=== PATIENT | female | born 1995 | race Caucasian/White ===

== ENCOUNTER 2017-09-24 16:09 | Emergency (ER) | payer BC ==
--- NOTE | 2017-09-24 16:45 | EDM.PDOC ---
ED HPI GENERAL MEDICAL PROBLEM - General Chief Complaint: Skin Complaint Stated Complaint: IRRITATION ON HANDS FROM CHEMICALS Time Seen by Provider: 09/24/17 16:33 Source of Information: Reports: Patient, RN Notes Reviewed - History of Present Illness INITIAL COMMENTS - FREE TEXT/NARRATIVE: 21-year-old female comes in with bilateral hand dermatitis. She states she has moved into a new place and was doing some cleaning with various types of cleaning chemicals not wearing gloves last evening. The dorsal aspect of both hands were somewhat red and sore. That has worsened throughout the day and now she has itchiness as well no other unusual activity or explanation for current symptoms. No Other areas of skin inflammation or irritation. Bilateral Hand Pain Score (Numeric/FACES): 8 - Related Data Allergies Allergy/AdvReac Type Severity Reaction Status Date / Time codeine Allergy Swelling Verified 09/24/17 16:28 Penicillins Allergy Swelling Verified 09/24/17 16:28 Home Meds: Home Meds Omeprazole 40 mg PO DAILY 09/24/17 [History] Triamcinolone Acetonide [Triamcinolone Acetonide 0.1% Crm] 15 gm TOP BID #1 tube 09/24/17 [Rx] Past Medical History - Past Health History Medical/Surgical History: Denies Medical/Surgical History Social & Family History - Tobacco Use Smoking Status *Q: Never Smoker - Caffeine Use Caffeine Use: Reports: Coffee - Recreational Drug Use Recreational Drug Use: No ED ROS GENERAL - Review of Systems Review Of Systems: See Below Constitutional: Reports: No Symptoms HEENT: Reports: No Symptoms Respiratory: Denies: Shortness of Breath Cardiovascular: Denies: Chest Pain GI/Abdominal: Denies: Abdominal Pain, Nausea, Vomiting Musculoskeletal: Reports: No Symptoms Skin: Reports: Erythema, Other (Dorsal aspect both hands otherwise clear) Neurological: Denies: Numbness, Tingling ED EXAM, SKIN/RASH Exam: See Below General Appearance: Alert, No Apparent Distress Eye Exam: Bilateral Eye: PERRL Head: Atraumatic. No: Facial Swelling Neck: Supple Respiratory/Chest: No Respiratory Distress Extremities: Normal Inspection, Normal Range of Motion Neurological: Alert, Oriented, No Motor/Sensory Deficits Skin: Warm, Dry, Erythema (Diffuse erythema very slight swelling dorsum of both hands, skin otherwise completely clear) Course - Vital Signs Last Recorded V/S: Last Vital Signs Temp 97.5 F 09/24/17 16:25 Pulse 77 09/24/17 16:25 Resp 16 09/24/17 16:25 BP 135/78 09/24/17 16:25 Pulse Ox 99 09/24/17 16:25 Departure - Departure Time of Disposition: 16:44 Disposition: Home, Self-Care 01 Condition: Fair Clinical Impression: Hand dermatitis - Discharge Information Prescriptions: Triamcinolone Acetonide [Triamcinolone Acetonide 0.1% Crm] 15 gm TOP BID #1 tube Referrals: PCP,None [Primary Care Provider] - Forms: ED Department Discharge Additional Instructions: Avoid any further chemical contact to your skin, apply the triamcinolone cream 2 -3 times daily until rash and itchiness resolves, alternate Tylenol and ibuprofen if needed for discomfort, follow-up clinic as needed if symptoms not resolving as expected within 2-4 days.
== END 2017-09-24 17:00 | disposition home or self-care (01) ==
LOC: JD.ED 16:09
DX: L30.9 Dermatitis, unspecified (principal); Z88.5 Allergy status to narcotic agent; Z88.0 Allergy status to penicillin
CPT/HCPCS: 99282; 99283

== ENCOUNTER 2018-11-13 07:26 | Emergency (ER) | payer BC, OTHER ==
[2018-11-13] MEDS ORDERED: Ketorolac 60 MG/2 ML SDV IM ONE (08:02)
[2018-11-13] MEDS ORDERED: HYDROmorphone 1 MG/ML Syringe IM ONE (08:02)
--- NOTE | 2018-11-13 08:08 | EDM.PDOC ---
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 This started about 1 1/2 weeks ago. She has a history of endometriosis. She was diagnosed when she was in her teens. The pain is getting worse and she saw Nita Nieto and she was given some percocet and referred to Dr Turner. She sees him on Tuesday. The pain meds are not lasting that long. She has no more pain then normal for this episode. She has no fever, chills, cough, chest pain or shortness of breath. Onset: Gradual Duration: Week(s): (11/15) Location: Reports: Abdomen, Pelvis Quality: Reports: Sharp Severity: Severe Improves with: Reports: None Worsens with: Reports: None Associated Symptoms: Reports: No Other Symptoms Left Lower Pelvic Pain Score (Numeric/FACES): 10 - Related Data Allergies Allergy/AdvReac Type Severity Reaction Status Date / Time codeine Allergy Swelling Verified 11/13/18 07:35 ethinyl estradiol Allergy Rash Verified 11/13/18 07:36 [From Xulane] norelgestromin [From Xulane] Allergy Rash Verified 11/13/18 07:36 Penicillins Allergy Swelling Verified 11/13/18 07:35 Home Meds: Home Meds DULoxetine [Cymbalta] 60 mg PO DAILY 11/13/18 [History] Ondansetron [Zofran] 4 mg PO TID PRN 11/13/18 [History] Pantoprazole [ProTONIX] 40 mg PO DAILY 11/13/18 [History] medroxyPROGESTERone [Depo-Provera Contraceptive] 150 mg IM ASDIRECTED 11/13/18 [ History] oxyCODONE HCl/Acetaminophen [Endocet 5-325 Tablet] 1 tab PO QID PRN 11/13/18 [ History] oxyCODONE HCl/Acetaminophen [Percocet 5-325 mg Tablet] 1 - 2 each PO Q6HR PRN # 30 tablet 11/13/18 [Rx] Past Medical History - Past Health History Medical/Surgical History: Denies Medical/Surgical History HEENT History: Reports: Impaired Vision Other HEENT History: wears eyeglasses. 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, Neurological History: Reports: Migraines Psychiatric History: Reports: Anxiety - Infectious Disease History Infectious Disease History: Reports: Chicken Pox Social & Family History - Tobacco Use Smoking Status *Q: Never Smoker Second Hand Smoke Exposure: No - Caffeine Use Caffeine Use: Reports: Energy Drinks - Recreational Drug Use Recreational Drug Use: No ED ROS GENERAL - Review of Systems Review Of Systems: See Below Constitutional: Reports: No Symptoms HEENT: Reports: No Symptoms Respiratory: Reports: No Symptoms Cardiovascular: Reports: No Symptoms Endocrine: Reports: No Symptoms GI/Abdominal: Reports: Abdominal Pain. Denies: Nausea, Vomiting : Reports: Other (Pelvic pain) ED EXAM, GI/ABD - Physical Exam Exam: See Below Exam Limited By: No Limitations General Appearance: Alert, No Apparent Distress Ears: Normal External Exam Nose: Normal Inspection Head: Atraumatic, Normocephalic Neck: Normal Inspection Respiratory/Chest: No Respiratory Distress, Lungs Clear, Normal Breath Sounds Cardiovascular: Regular Rate, Rhythm, No Edema, No Murmur GI/Abdominal Exam: Soft, No Organomegaly, No Mass, Tender (Mild to moderate tenderness in the left lower abdomen) Course - Vital Signs Last Recorded V/S: Last Vital Signs Temp 99.1 F 11/13/18 07:30 Pulse 92 11/13/18 07:30 Resp 16 11/13/18 07:30 BP 100/69 11/13/18 07:30 Pulse Ox 100 11/13/18 07:30 - Orders/Labs/Meds Orders: Active Orders 24 hr Category Date Time Status HYDROmorphone [Dilaudid] Med 11/13/18 08:02 Once 1 mg IM ONETIME ONE Ketorolac [Toradol] Med 11/13/18 08:02 Once 60 mg IM ONETIME ONE - Re-Assessments/Exams Free Text/Narrative Re-Assessment/Exam: 11/13/18 08:07 I ordered dilaudid 1mg IM and toradol 60mg IM. I will give her some more percocet for pain. Departure - Departure Time of Disposition: 08:10 Disposition: Home, Self-Care 01 Condition: Good Clinical Impression: Endometriosis - Discharge Information *PRESCRIPTION DRUG MONITORING PROGRAM REVIEWED*: No *COPY OF PRESCRIPTION DRUG MONITORING REPORT IN PATIENT SHARAD: No Prescriptions: oxyCODONE HCl/Acetaminophen [Percocet 5-325 mg Tablet] 1 - 2 each PO Q6HR PRN # 30 tablet PRN Reason: Pain Referrals: Niki Nieto WATER TAXI CAPTAIN [Primary Care Provider] - Additional Instructions: Follow up with Dr Turner on Tuesday. Take the percocet 1 to 2 pills every 6 hours as needed for pain. Please return if you are worse. - My Orders Last 24 Hours: My Active Orders 11/13/18 08:02 HYDROmorphone [Dilaudid] 1 mg IM ONETIME ONE Ketorolac [Toradol] 60 mg IM ONETIME ONE - Assessment/Plan Last 24 Hours: My Active Orders 11/13/18 08:02 HYDROmorphone [Dilaudid] 1 mg IM ONETIME ONE Ketorolac [Toradol] 60 mg IM ONETIME ONE
== END 2018-11-13 08:28 | disposition home or self-care (01) ==
LOC: JD.ED 07:26
DX: N80.9 Endometriosis, unspecified (principal); J45.909 Unspecified asthma, uncomplicated; Z88.5 Allergy status to narcotic agent; Z88.8 Allergy status to other drugs, medicaments and biological substances; Z88.0 Allergy status to penicillin; Z79.899 Other long term (current) drug therapy
CPT/HCPCS: 96372; 99284; J1170; J1885; 99283

== ENCOUNTER 2018-11-17 07:53 | Day surgery (SDC) | payer OTHER ==
[~2018-11-17 07:53] MED LIST: Lactated Ringers 1,000 ML IV SCH; Lidocaine 1%/Sod Bicarbonate in NS 8.4% 1 ML Syringe IDERM PRN; Sodium Chloride 0.9% 10 ML Syringe FLUSH PRN
[2018-11-17] MEDS ORDERED: Bupivacaine 0.5% 30 ML SDV ONE (08:33)
[2018-11-17] MEDS ORDERED: Propofol 200 MG/20 ML SDV ONE ×2 (08:43)
[2018-11-17] MEDS ORDERED: fentaNYL 250 MCG/5 ML SDV ONE (08:44)
[2018-11-17] MEDS ORDERED: Lidocaine 1% 4 ML ONE (08:45)
[2018-11-17] MEDS ORDERED: Midazolam 1 MG/ML 2 ML SDV ONE (08:47)
[2018-11-17] MEDS ORDERED: ceFAZolin 1 GM Vial ONE (08:48)
[2018-11-17] MEDS ORDERED: Ondansetron 4 MG/2 ML SDV ONE (08:53)
[2018-11-17] MEDS ORDERED: Dexamethasone 4 MG/ML SDV ONE (08:53)
[2018-11-17] MEDS ORDERED: Rocuronium 50 MG/5 ML Vial ONE (08:53)
[2018-11-17] MEDS ORDERED: Scopolamine 1.5 MG Transdermal Patch TRDERM ONE (09:15)
--- NOTE | 2018-11-17 09:15 | PCM.PREANE ---
Preanesthetic Assessment - Anesthesia/Transfusion/Family Hx Anesthesia History: No Prior Anesthesia Family History of Anesthesia Reaction: No Transfusion History: No Prior Transfusion(s) Intubation History: Unknown - Review of Systems General: No Symptoms Pulmonary: No Symptoms (asthma) Cardiovascular: No Symptoms Gastrointestinal: No Symptoms (GERD), Constipation, Nausea Neurological: No Symptoms (motion sickness), Headache (migraines) Other: Reports: Anxiety - Physical Assessment NPO Status Date: 11/16/18 NPO Status Time: 22:00 Pulse: 83 O2 Sat by Pulse Oximetry: 96 Respiratory Rate: 16 Blood Pressure: 91/46 Temperature: 36.3 C Vital Signs: Last Vital Signs Temp 36.3 C 11/17/18 08:10 Pulse 83 11/17/18 08:10 Resp 16 11/17/18 08:10 BP 91/46 L 11/17/18 08:10 Pulse Ox 96 11/17/18 08:10 Height: 1.6 m Weight: 67.585 kg ASA Class: 2 Mental Status: Alert & Oriented x3 Airway Class: Mallampati = 2 Dentition: Reports: Normal Dentition, Caries Thyro-Mental Finger Breadths: 3 Mouth Opening Finger Breadths: 3 ROM/Head Extension: Full Lungs: Clear to Auscultation, Normal Respiratory Effort Cardiovascular: Regular Rate, Regular Rhythm - Lab Values: Laboratory Last Values Urine Color Light yellow (Yellow) 11/17/18 08:00 Urine Appearance Cloudy (Clear) H 11/17/18 08:00 Urine pH 7.5 (5.0-8.0) 11/17/18 08:00 Ur Specific [place] 1.020 (1.005-1.030) 11/17/18 08:00 Urine Protein 2+ (Negative) H 11/17/18 08:00 Urine Glucose (UA) Negative (Negative) 11/17/18 08:00 Urine Ketones Negative (Negative) 11/17/18 08:00 Urine Occult Blood 1+ (Negative) H 11/17/18 08:00 Urine Nitrite Positive (Negative) H 11/17/18 08:00 Urine Bilirubin Negative (Negative) 11/17/18 08:00 Urine Urobilinogen 1.0 (0.2-1.0) 11/17/18 08:00 Ur Leukocyte Esterase 2+ (Negative) H 11/17/18 08:00 Urine RBC 5-10 /hpf (0-5) H 11/17/18 08:00 Urine WBC 30-40 /hpf (0-5) H 11/17/18 08:00 Ur Epithelial Cells 0-5 /hpf (0-5) 11/17/18 08:00 Urine Bacteria Many /hpf (FEW) H 11/17/18 08:00 Urine Mucus Few /hpf (FEW) 11/17/18 08:00 Urine HCG, Qual Negative (NEGATIVE) 11/17/18 08:00 All labs reviewed and noted and within acceptable ranges to proceed with scheduled procedure. - Allergies Allergies/Adverse Reactions: Allergies Allergy/AdvReac Type Severity Reaction Status Date / Time codeine Allergy Other Verified 11/17/18 08:38 diazepam [From Valium] Allergy Other Verified 11/17/18 08:38 ethinyl estradiol Allergy Rash Verified 11/16/18 19:11 [From Xulane] norelgestromin [From Xulane] Allergy Rash Verified 11/16/18 19:11 Penicillins Allergy Other Verified 11/17/18 08:38 - Anesthesia Plan Pre-Op Medication Ordered: None - Acknowledgements Anesthesia Type Planned: General Anesthesia Pt an Appropriate Candidate for the Planned Anesthesia: Yes Alternatives and Risks of Anesthesia Discussed w Pt/Guardian: Yes Pt/Guardian Understands and Agrees with Anesthesia Plan: Yes PreAnesthesia Questionnaire - Past Health History Medical/Surgical History: Denies Medical/Surgical History HEENT History: Reports: Impaired Vision Other HEENT History: wears eyeglasses. 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) Other OB/BYN History: chronic pelvic pain Musculoskeletal History: Reports: None Neurological History: Reports: Migraines Psychiatric History: Reports: None Endocrine/Metabolic History: Reports: None Hematologic History: Reports: None Immunologic History: Reports: None Oncologic (Cancer) History: Reports: None Dermatologic History: Reports: None - Infectious Disease History Infectious Disease History: Reports: Chicken Pox - Past Surgical History Head Surgeries/Procedures: Reports: None HEENT Surgical History: Reports: Oral Surgery Cardiovascular Surgical History: Reports: None Respiratory Surgical History: Reports: None GI Surgical History: Reports: None Female Surgical History: Reports: None Male Surgical History: Reports: None Endocrine Surgical History: Reports: None Neurological Surgical History: Reports: None Musculoskeletal Surgical History: Reports: None Oncologic Surgical History: Reports: None Dermatological Surgical History: Reports: None - SUBSTANCE USE Smoking Status *Q: Never Smoker Recreational Drug Use History: No - HOME MEDS Home Medications: Home Meds Pantoprazole [ProTONIX] 40 mg PO DAILY 11/13/18 [History] medroxyPROGESTERone [Depo-Provera Contraceptive] 150 mg IM ASDIRECTED 11/13/18 [ History] - CURRENT (IN HOUSE) MEDS Current Meds: Current Medications Lactated Ringer's (Ringers, Lactated) 1,000 mls @ 125 mls/hr IV ASDIRECTED RADHA Stop: 11/17/18 23:00 Lidocaine/Sodium Bicarbonate (Buffered Lidocaine 1% In Ns 8.4%) 0.25 ml IDERM ONETIME PRN PRN Reason: Prior to IV Start Stop: 11/17/18 18:00 Sodium Chloride (Saline Flush) 10 ml FLUSH ASDIRECTED PRN PRN Reason: Keep Vein Open Stop: 11/17/18 18:00 Discontinued Medications Bupivacaine HCl (Marcaine 0.5%) Confirm Administered Dose 30 ml .ROUTE .STK-MED ONE Stop: 11/17/18 08:34 Cefazolin Sodium (Ancef) Confirm Administered Dose 2 gm .ROUTE .STK-MED ONE Stop: 11/17/18 08:49 Dexamethasone (Dexamethasone) Confirm Administered Dose 4 mg .ROUTE .STK-MED ONE Stop: 11/17/18 08:54 Fentanyl (Sublimaze) Confirm Administered Dose 250 mcg .ROUTE .STK-MED ONE Stop: 11/17/18 08:45 Lidocaine HCl (Xylocaine-Mpf 1%) Confirm Administered Dose 4 mls @ as directed .ROUTE .STK-MED ONE Stop: 11/17/18 08:46 Midazolam HCl (Versed 1 Mg/Ml) Confirm Administered Dose 2 mg .ROUTE .STK-MED ONE Stop: 11/17/18 08:48 Ondansetron HCl (Zofran) Confirm Administered Dose 4 mg .ROUTE .STK-MED ONE Stop: 11/17/18 08:54 Propofol (Diprivan 20 Ml) Confirm Administered Dose 200 mg .ROUTE .STK-MED ONE Stop: 11/17/18 08:44 Propofol (Diprivan 20 Ml) Confirm Administered Dose 200 mg .ROUTE .STK-MED ONE Stop: 11/17/18 08:44 Rocuronium Aspers (Zemuron) Confirm Administered Dose 50 mg .ROUTE .STK-MED ONE Stop: 11/17/18 08:54
[2018-11-17] MEDS ORDERED: fentaNYL 100 MCG/2 ML SDV IVPUSH PRN (10:34)
[2018-11-17] MEDS ORDERED: diphenhydrAMINE 50 MG/ML SDV IVPUSH PRN (10:34)
[2018-11-17] MEDS ORDERED: Ondansetron 4 MG/2 ML SDV IVPUSH PRN (10:34)
--- NOTE | 2018-11-17 10:34 | PCM.POSTAN ---
POST ANESTHESIA ASSESSMENT - MENTAL STATUS Mental Status: Alert - VITAL SIGNS Pulse Rate: 81 SaO2: 100 Resp Rate: 11 Blood Pressure: 118/49 Temperature: 36.3 C - RESPIRATORY Respiratory Status: Respiratory Rate WNL, Airway Patent, O2 Saturation Stable, Supplemental Oxygen - CARDIOVASCULAR CV Status: Pulse Rate WNL, Blood Pressure Stable - GASTROINTESTINAL GI Status: No Symptoms - PAIN Pain Score: 0 - POST OP HYDRATION Hydration Status: Adequate & Stable
--- NOTE | 2018-11-17 10:48 | PCM.OPNOTE ---
- General Post-Op/Procedure Note Date of Surgery/Procedure: 11/17/18 Operative Procedure(s): Diagnostic laparoscopy Findings: Overall normal-appearing uterus, bilateral fallopian tubes and bilateral ovaries. Normal-appearing appendix. Normal-appearing visualized portions of the intestines. Normal-appearing liver and gallbladder portions. No evidence of endometriosis lesions noted on the peritoneum. The only abnormal finding was a somewhat shortened left round ligament with the uterus not in the midline and more towards the left side of the pelvis. Uncertain significance. Pre Op Diagnosis: Chronic pelvic pain in a female Post-Op Diagnosis: Same Anesthesia Technique: General ET Tube Primary Surgeon: Guido Garza Anesthesia Provider: Enedina Garza Ball Assembler: Parker Turner Reason Ball Assembler Was Necessary: Patient's safety and reduction of morbidity and mortality Role of Ball Assembler: Laparoscopic skills with laparoscopic instruments for a portion of the procedure. Fluid Replacement, Intraop: 1,200 Output, Urine Amount: 0 (Voided prior to procedure) EBL in mLs: 2 Complications: None Condition: Good Free Text/Narrative:: The patient was seen in the preoperative holding area and risks, benefits, indications, and alternatives of the procedure were reviewed with the patient and she desired to proceed with a diagnostic laparoscopy, possible lysis of adhesions, possible biopsies. Consents were reviewed. The patient was taken back to the OR and given general anesthesia with an endotracheal tube which was placed without difficulty. She was placed in supine. She was prepped and draped in normal sterile fashion. Attention was then turned to her umbilicus and was injected with 0.5% Marcaine and a 5 mm stab incision was made with a scalpel and a Veress needle was then inserted through the incision. The gas was turned on, with an opening pressure of 6 mmHg. Pneumoperitoneum was continued until 15 mmHg pressure. A 5 mm trocar was then inserted under direct visualization through the incision without difficulty. A global view of the abdomen was taken and noted to be overall free of adhesions. Attention was then turned to the suprapubic area and the skin was injected with local anesthetic. A skin incision was made using a scalpel. A 5 mm trocar was then inserted under direct visualization with laparoscope. A global view of the abdomen was then taken and noted to be overall normal in appearance. The intestines, visualized portions of the liver and gallbladder and upper abdomen were overall normal appearance. The uterus was then inspected and felt to be overall normal in appearance. The fallopian tubes and ovaries were normal bilaterally. Inspection of the posterior cul-de- sac showed normal peritoneum. The appendix was inspected and felt to be normal in appearance. The abdomen was then further explored and no felt to be overall normal and the case was completed at this time. The gas was then evacuated from the peritoneum and trocars removed. These were closed using 4-0 Monocryl suture and Dermabond. The case was completed at this time and all instruments were removed. The patient was awoken from general anesthesia and taken to the PACU for recovery in stable condition. She will be discharged to home once she is able to meet all postoperative milestones including tolerating small amount of oral intake and liquids, ambulate without difficulty, her pain controlled with oral medications and able to void without difficulty. She will follow-up in the clinic in 2 weeks or earlier as needed. Sponge, lap, needle, and instrument counts were correct x 2. Review of images IMG 001: Global view of the pelvis with uterus noted to be shifted to the left of midline but overall normal in appearance. Shortening of the left round ligament with normal-appearing right round ligament. Normal appearing fallopian tubes bilaterally. IMG 002: Right ovary and fallopian tube normal in appearance. IMG 003: Left fallopian tube and ovary normal in appearance IMG 004: Distal portion of the appendix normal in appearance with filmy adhesion to the posterior peritoneum IMG 005: Proximal portion of the appendix normal in appearance. IMG 006 view of the upper abdomen with liver edge noted. Normal liver appearance. IMG 007: Liver edge and visualized portion of the gallbladder appear normal. IMG 008: Upper abdomen with additional view of the liver normal in appearance IMG 009: Posterior cul-de-sac free of any hemosiderin staining or nodules. No fluid in the posterior cul-de-sac IMG 010: Suprapubic port site after removal of the trocar is hemostatic.
[2018-11-17] MEDS ORDERED: Ketorolac 30 MG/ML SDV ONE (11:07)
== END 2018-11-17 13:26 | disposition home or self-care (01) ==
LOC: JD.SDS 07:53
PROVIDERS: ATTEND Obstetrics & Gynecology
DX: R10.2 Pelvic and perineal pain (principal); G89.29 Other chronic pain; J45.909 Unspecified asthma, uncomplicated; K21.9 Gastro-esophageal reflux disease without esophagitis; F41.9 Anxiety disorder, unspecified; G43.909 Migraine, unspecified, not intractable, without status migrainosus; Z79.899 Other long term (current) drug therapy
CPT/HCPCS: 49320; 81001; 81025; 87086; 87088; 87186; A9270; J1100; J1885; J2250; J2405; J2704; J3010; J3490; J0690; J2001

== ENCOUNTER 2019-03-06 09:29 | Emergency (ER) | payer SELFPAY ==
[2019-03-06] MEDS ORDERED: Ondansetron 4 MG/2 ML SDV IVPUSH ONE ×2 (09:53→11:42)
[2019-03-06] MEDS ORDERED: Sodium Chloride 0.9% 1,000 ML IV STA (09:53)
[2019-03-06] MEDS ORDERED: Sodium Chloride 0.9% 10 ML Syringe FLUSH PRN (09:53)
[2019-03-06] MEDS ORDERED: HYDROmorphone 1 MG/ML Syringe IVPUSH ONE (09:55)
[2019-03-06] MEDS ORDERED: Diatrizoate Meglumine/Diatrizoate Sodium 37% 120 ML Bottle PO ONE (10:19)
[2019-03-06] MEDS ORDERED: Sodium Chloride 0.9% 10 ML Syringe FLUSH ONE (10:19)
[2019-03-06] MEDS ORDERED: Iopamidol 755 Mg/ML 200 ML Bottle IV ONE (10:19)
[2019-03-06] MEDS ORDERED: diphenhydrAMINE 50 MG/ML SDV IVPUSH ONE (11:41)
--- NOTE | 2019-03-06 12:48 | CT ---
CT abdomen and pelvis Technique: Multiple axial sections were obtained from the top of the liver inferiorly through the pubic symphysis. Intravenous and oral contrast was utilized. Findings: Small portion of the visualized lung bases are clear. Liver contains no focal abnormality. Spleen appears normal. Adrenal glands show no nodule. Kidney show symmetric contrast enhancement without hydronephrosis or mass. Pancreas appears normal. Gallbladder contains no calcified gallstones. Aorta shows no aneurysm. No retroperitoneal adenopathy or mesenteric abnormalities are seen. No pelvic mass or adenopathy is seen. No free fluid or inflammatory change is seen. Appendix is seen which is normal in size. Ovaries are asymmetric in size believed to be incidental. Bone window settings were reviewed which appear within normal limits for the patient's age. Impression: 1. Nothing acute is seen on CT study of the abdomen and pelvis Diagnostic code #2 Agree with preliminary report issued by [employer], preliminary report finalized on 03/06/19, 1:18 PM Central Time
[2019-03-06] MEDS ORDERED: HYDROmorphone 0.5 MG/0.5 ML Syringe IVPUSH ONE (13:59)
--- NOTE | 2019-03-06 14:05 | EDM.PDOC ---
ED HPI GENERAL MEDICAL PROBLEM - General Chief Complaint: Genitourinary Problem Stated Complaint: FREQUENT VOMITING Time Seen by Provider: 03/06/19 09:39 Source of Information: Reports: Patient, Family History Limitations: Reports: No Limitations - History of Present Illness INITIAL COMMENTS - FREE TEXT/NARRATIVE: The patient presents with lower abdominal pain. This has been an ongoing problem for months. It was initially thought the patient had endometriosis. Dr Garza did a laproscopy and the patient did not have any endometriosis. She did have a uterus that was off to one side. She said the pain was worse today and she had some nausea and vomiting. She is scheduled to see a GI specialist early next month in [place]. She is being worked up for colitis or crohns. Colitis does run in her family. She has no dysuria or diarrhea. She has no fever or chills. Onset: Gradual Duration: Week(s): Location: Reports: Abdomen Quality: Reports: Sharp Severity: Moderate Improves with: Reports: None Worsens with: Reports: None Associated Symptoms: Reports: Nausea/Vomiting. Denies: Chest Pain, Cough, Fever /Chills, Headaches, Shortness of Breath Right Lower Abdominal Pain Score (Numeric/FACES): 5 - Related Data Allergies Allergy/AdvReac Type Severity Reaction Status Date / Time codeine Allergy Other Verified 03/06/19 09:39 diazepam [From Valium] Allergy Other Verified 03/06/19 09:39 ethinyl estradiol Allergy Rash Verified 03/06/19 09:39 [From Xulane] norelgestromin [From Xulane] Allergy Rash Verified 03/06/19 09:39 Penicillins Allergy Other Verified 03/06/19 09:39 Home Meds: Home Meds Pantoprazole [ProTONIX] 40 mg PO DAILY 11/13/18 [History] medroxyPROGESTERone [Depo-Provera Contraceptive] 150 mg IM ASDIRECTED 11/13/18 [ History] Ibuprofen 600 mg PO Q6H PRN #60 tablet 11/17/18 [Rx] Hydrocodone/Acetaminophen [Hydrocodon-Acetaminophen 5-325] 1 - 2 each PO Q6HR PRN #10 tablet 03/06/19 [Rx] Ondansetron [Zofran ODT] 4 mg PO Q6H PRN #20 tab.dis 03/06/19 [Rx] Venlafaxine HCl [Venlafaxine ER] 150 mg PO 03/06/19 [History] Past Medical History - Past Health History Medical/Surgical History: Denies Medical/Surgical History HEENT History: Reports: Impaired Vision Other HEENT History: wears eyeglasses. Cardiovascular History: Reports: None Respiratory History: Reports: Asthma Gastrointestinal History: Reports: GERD Genitourinary History: Reports: None VACCINATOR History: Reports: Other (See Below) Other VACCINATOR History: chronic pelvic pain Musculoskeletal History: Reports: None Neurological History: Reports: Migraines Psychiatric History: Reports: None Endocrine/Metabolic History: Reports: None Hematologic History: Reports: None Immunologic History: Reports: None Oncologic (Cancer) History: Reports: None Dermatologic History: Reports: None - Infectious Disease History Infectious Disease History: Reports: Chicken Pox - Past Surgical History Head Surgeries/Procedures: Reports: None HEENT Surgical History: Reports: Oral Surgery Cardiovascular Surgical History: Reports: None Respiratory Surgical History: Reports: None GI Surgical History: Reports: None Female Surgical History: Reports: None Endocrine Surgical History: Reports: None Neurological Surgical History: Reports: None Musculoskeletal Surgical History: Reports: None Oncologic Surgical History: Reports: None Dermatological Surgical History: Reports: None Social & Family History - Tobacco Use Smoking Status *Q: Never Smoker - Caffeine Use Caffeine Use: Reports: None - Recreational Drug Use Recreational Drug Use: No ED ROS GENERAL - Review of Systems Review Of Systems: See Below Constitutional: Reports: No Symptoms HEENT: Reports: No Symptoms Respiratory: Reports: No Symptoms Cardiovascular: Reports: No Symptoms Endocrine: Reports: No Symptoms GI/Abdominal: Reports: Abdominal Pain, Nausea, Vomiting ED EXAM, GI/ABD - Physical Exam Exam: See Below Exam Limited By: No Limitations General Appearance: Alert, No Apparent Distress Ears: Normal External Exam Nose: Normal Inspection Head: Atraumatic, Normocephalic Neck: Normal Inspection Respiratory/Chest: No Respiratory Distress, Lungs Clear, Normal Breath Sounds Cardiovascular: Regular Rate, Rhythm, No Edema, No Murmur GI/Abdominal Exam: Soft, No Organomegaly, No Mass, Tender (Moderate tenderness to the lower abdomen) Course - Vital Signs Last Recorded V/S: Last Vital Signs Temp 98.1 F 03/06/19 14:21 Pulse 74 03/06/19 14:21 Resp 16 03/06/19 14:21 BP 96/46 L 03/06/19 14:21 Pulse Ox 97 03/06/19 14:21 - Orders/Labs/Meds Orders: Active Orders 24 hr Category Date Time Status Peripheral IV Care [RC] . DIRECTED Care 03/06/19 09:53 Active Transvaginal Non OB [US] Stat Exams 03/06/19 12:33 Ordered Sodium Chloride 0.9% [Saline Flush] Med 03/06/19 09:53 Active 10 ml FLUSH ASDIRECTED PRN ED Antiemetic Medication Reflex [OM.PC] Stat Oth 03/06/19 09:53 Ordered Peripheral IV Insertion Adult [OM.PC] Stat Oth 03/06/19 09:53 Ordered Medication Orders Sodium Chloride (Saline Flush) 10 ml FLUSH ASDIRECTED PRN PRN Reason: Keep Vein Open Last Admin: 03/06/19 10:10 Dose: 10 ml Labs: Laboratory Tests 03/06/19 03/06/19 03/06/19 Range/Units 10:10 10:10 10:10 WBC 6.06 (3.98-10.04) K/mm3 RBC 5.20 (3.98-5.22) M/mm3 Hgb 14.9 (11.2-15.7) gm/L Hct 45.8 H (34.1-44.9) % MCV 88.1 (79.4-94.8) fl MCH 28.7 (25.6-32.2) pg MCHC 32.5 (32.2-35.5) g/dl RDW Std Deviation 42.9 (36.4-46.3) fL Plt Count 288 (182-369) K/mm3 MPV 10.9 (9.4-12.3) fl Neut % (Auto) 52.6 (34.0-71.1) % Lymph % (Auto) 35.5 (19.3-51.7) % Addison % (Auto) 9.7 (4.7-12.5) % Eos % (Auto) 1.5 (0.7-5.8) Baso % (Auto) 0.5 (0.1-1.2) % Neut # (Auto) 3.19 (1.56-6.13) K/mm3 Lymph # (Auto) 2.15 (1.18-3.74) K/mm3 Addison # (Auto) 0.59 H (0.24-0.36) K/mm3 Eos # (Auto) 0.09 (0.04-0.36) K/mm3 Baso # (Auto) 0.03 (0.01-0.08) K/mm3 Sodium 141 (136-145) mEq/L Potassium 3.7 (3.5-5.1) mEq/L Chloride 104 (98-107) mEq/L Carbon Dioxide 27 (21-32) mEq/L Anion Gap 13.7 (5-15) BUN 10 (7-18) mg/dL Creatinine 0.9 (0.55-1.02) mg/dL Est Cr Clr Drug Dosing 81.79 mL/min Estimated GFR (MDRD) > 60 (>60) mL/min BUN/Creatinine Ratio 11.1 L (14-18) Glucose 84 (74-106) mg/dL Calcium 9.1 (8.5-10.1) mg/dL Total Bilirubin 0.6 (0.2-1.0) mg/dL AST 15 (15-37) U/L ALT 20 (14-59) U/L Alkaline Phosphatase 86 (46-116) U/L Total Protein 7.7 (6.4-8.2) g/dl Albumin 4.3 (3.4-5.0) g/dl Globulin 3.4 gm/dL Albumin/Globulin Ratio 1.3 (1-2) Lipase 121 (73-393) U/L HCG, Qual Negative (NEGATIVE) Urine Color (Yellow) Urine Appearance (Clear) Urine pH (5.0-8.0) Ur Specific L[place]y (1.005-1.030) Urine Protein (Negative) Urine Glucose (UA) (Negative) Urine Ketones (Negative) Urine Occult Blood (Negative) Urine Nitrite (Negative) Urine Bilirubin (Negative) Urine Urobilinogen (0.2-1.0) Ur Leukocyte Esterase (Negative) Urine RBC (0-5) /hpf Urine WBC (0-5) /hpf Ur Epithelial Cells (0-5) /hpf Urine Bacteria (FEW) /hpf Urine Mucus (FEW) /hpf 03/06/19 Range/Units 10:50 WBC (3.98-10.04) K/mm3 RBC (3.98-5.22) M/mm3 Hgb (11.2-15.7) gm/L Hct (34.1-44.9) % MCV (79.4-94.8) fl MCH (25.6-32.2) pg MCHC (32.2-35.5) g/dl RDW Std Deviation (36.4-46.3) fL Plt Count (182-369) K/mm3 MPV (9.4-12.3) fl Neut % (Auto) (34.0-71.1) % Lymph % (Auto) (19.3-51.7) % Addison % (Auto) (4.7-12.5) % Eos % (Auto) (0.7-5.8) Baso % (Auto) (0.1-1.2) % Neut # (Auto) (1.56-6.13) K/mm3 Lymph # (Auto) (1.18-3.74) K/mm3 Addison # (Auto) (0.24-0.36) K/mm3 Eos # (Auto) (0.04-0.36) K/mm3 Baso # (Auto) (0.01-0.08) K/mm3 Sodium (136-145) mEq/L Potassium (3.5-5.1) mEq/L Chloride (98-107) mEq/L Carbon Dioxide (21-32) mEq/L Anion Gap (5-15) BUN (7-18) mg/dL Creatinine (0.55-1.02) mg/dL Est Cr Clr Drug Dosing mL/min Estimated GFR (MDRD) (>60) mL/min BUN/Creatinine Ratio (14-18) Glucose (74-106) mg/dL Calcium (8.5-10.1) mg/dL Total Bilirubin (0.2-1.0) mg/dL AST (15-37) U/L ALT (14-59) U/L Alkaline Phosphatase (46-116) U/L Total Protein (6.4-8.2) g/dl Albumin (3.4-5.0) g/dl Globulin gm/dL Albumin/Globulin Ratio (1-2) Lipase (73-393) U/L HCG, Qual (NEGATIVE) Urine Color Yellow (Yellow) Urine Appearance Clear (Clear) Urine pH 5.5 (5.0-8.0) Ur Specific L[place]y > or = 1.030 (1.005-1.030) Urine Protein 1+ H (Negative) Urine Glucose (UA) Negative (Negative) Urine Ketones Negative (Negative) Urine Occult Blood Negative (Negative) Urine Nitrite Negative (Negative) Urine Bilirubin Negative (Negative) Urine Urobilinogen 0.2 (0.2-1.0) Ur Leukocyte Esterase Negative (Negative) Urine RBC Not seen (0-5) /hpf Urine WBC 0-5 (0-5) /hpf Ur Epithelial Cells 5-10 H (0-5) /hpf Urine Bacteria Few H (FEW) /hpf Urine Mucus Moderate H (FEW) /hpf Meds: Medications Generic Name Dose Route Start Last Admin Trade Name Freq PRN Reason Stop Dose Admin Sodium Chloride 10 ml 03/06/19 09:53 03/06/19 10:10 Saline Flush FLUSH 10 ml ASDIRECTED PRN Administration Keep Vein Open Discontinued Medications Generic Name Dose Route Start Last Admin Trade Name Freq PRN Reason Stop Dose Admin Diatrizoate Meglum/Diatrizoate Sod 90 ml 03/06/19 10:19 03/06/19 11:47 Gastrografin 37% PO 03/06/19 10:20 90 ml ONETIME ONE Administration Diphenhydramine HCl 50 mg 03/06/19 11:41 03/06/19 11:59 Benadryl IVPUSH 03/06/19 11:42 50 mg ONETIME ONE Administration Hydromorphone HCl 1 mg 03/06/19 09:55 03/06/19 10:10 Dilaudid IVPUSH 03/06/19 09:56 1 mg ONETIME ONE Administration Hydromorphone HCl 0.5 mg 03/06/19 13:59 03/06/19 14:19 Dilaudid IVPUSH 03/06/19 14:00 0.5 mg ONETIME ONE Administration Sodium Chloride 1,000 mls @ 1,000 mls/hr 03/06/19 09:53 03/06/19 10:10 Normal Saline IV 03/06/19 10:52 1,000 mls/hr .BOLUS STA Administration Iopamidol 100 ml 03/06/19 10:19 03/06/19 11:48 Isovue-370 (76%) IV 03/06/19 10:20 90 ml ONETIME ONE Administration Ondansetron HCl 4 mg 03/06/19 09:53 03/06/19 10:10 Zofran IVPUSH 03/06/19 09:54 4 mg ONETIME ONE Administration Ondansetron HCl 4 mg 03/06/19 11:42 03/06/19 11:59 Zofran IVPUSH 03/06/19 11:43 4 mg ONETIME ONE Administration Sodium Chloride 10 ml 03/06/19 10:19 03/06/19 11:48 Saline Flush FLUSH 03/06/19 10:20 10 ml ONETIME ONE Administration - Re-Assessments/Exams Free Text/Narrative Re-Assessment/Exam: 03/06/19 14:13 I ordered an IV NS 1L bolus, zofran 4mg IV, dilaudid 1mg IV, labs, UA and a CT of her abdomen and pelvis. Her CBC and CMP look good. Her Hcg is negative. Her UA shows no UTI. Her CT shows normal appendix. No bowel obstruction or diverticulitis. Asymmetric ovaries. Consider pelvic US if clinically indicated. I have ordered an US and more for pain and nausea. The patient had some itching before she went to CT. She then had more itching after that. I am not sure if she reacted to the oral contrast which would be very rare. I ordered some benadryl. I will have her avoid the oral contrast from now on. I am waiting for the US report. 03/06/19 14:58 The US shows nothing acute. I will discharge her home with follow up with GI. Departure - Departure Time of Disposition: 15:05 Disposition: Home, Self-Care 01 Condition: Good Clinical Impression: Abdominal pain Qualifiers: Abdominal location: lower abdomen, unspecified Qualified Code(s): R10.30 - Lower abdominal pain, unspecified Nausea & vomiting Qualifiers: Vomiting type: unspecified Vomiting Intractability: non-intractable Qualified Code(s): R11.2 - Nausea with vomiting, unspecified - Discharge Information *PRESCRIPTION DRUG MONITORING PROGRAM REVIEWED*: No *COPY OF PRESCRIPTION DRUG MONITORING REPORT IN PATIENT SHARAD: No Prescriptions: Hydrocodone/Acetaminophen [Hydrocodon-Acetaminophen 5-325] 1 - 2 each PO Q6HR PRN #10 tablet PRN Reason: Pain Ondansetron [Zofran ODT] 4 mg PO Q6H PRN #20 tab.dis PRN Reason: Nausea\vomiting Referrals: Niki Nieto NP [Primary Care Provider] - 1 Week Forms: ED Department Discharge Additional Instructions: Drink plenty of fluids. Take the zofran as needed for nausea and vomiting. Take motrin ot tylenol for pain. If that does not work, try the hydrocodone for pain. Please return if you are worse. - My Orders Last 24 Hours: My Active Orders 03/06/19 09:53 Peripheral IV Care [RC] . DIRECTED Sodium Chloride 0.9% [Saline Flush] 10 ml FLUSH ASDIRECTED PRN ED Antiemetic Medication Reflex [OM.PC] Stat Peripheral IV Insertion Adult [OM.PC] Stat 03/06/19 12:33 Transvaginal Non OB [US] Stat - Assessment/Plan Last 24 Hours: My Active Orders 03/06/19 09:53 Peripheral IV Care [RC] . DIRECTED Sodium Chloride 0.9% [Saline Flush] 10 ml FLUSH ASDIRECTED PRN ED Antiemetic Medication Reflex [OM.PC] Stat Peripheral IV Insertion Adult [OM.PC] Stat 03/06/19 12:33 Transvaginal Non OB [US] Stat
--- NOTE | 2019-03-06 15:13 | US ---
Pelvic ultrasound: Multiple real-time images of the pelvis were obtained. Comparison: Pelvis seen on CT exam performed earlier on the same day. Uterus is mobile between retroflexed and anteverted. No myometrial abnormality is seen. Endometrial thickness is 5.6 mm. Dominant follicle is noted within the right ovary measuring 2.0 cm which is incidental. Ovaries are unremarkable. No free fluid is seen. Measurements: Uterus: Length 6.1 cm, AP height 4.1 cm, transverse width 4.2 cm Right ovary: 3.4 x 2.4 x 3.1 cm Left ovary: 2.9 x 1.5 x 2.2 cm Impression: 1. No abnormality is identified on pelvic ultrasound exam. Diagnostic code #1
== END 2019-03-06 15:23 | disposition home or self-care (01) ==
LOC: JD.ED 09:29
DX: R10.30 Lower abdominal pain, unspecified (principal); R11.2 Nausea with vomiting, unspecified; K21.9 Gastro-esophageal reflux disease without esophagitis; J45.909 Unspecified asthma, uncomplicated; Z79.899 Other long term (current) drug therapy; Z88.0 Allergy status to penicillin; Z88.8 Allergy status to other drugs, medicaments and biological substances; Z88.5 Allergy status to narcotic agent
CPT/HCPCS: 36415; 74177; 76830; 80053; 81001; 83690; 84703; 85025; 96361; 96374; 96375; 96376; 99284; J1170; J1200; J2405; J7040; Q9963; Q9967

== ENCOUNTER 2019-03-17 09:12 | Emergency (ER) | payer SELFPAY ==
[2019-03-17] MEDS ORDERED: Ondansetron 4 MG/2 ML SDV IVPUSH ONE (09:40)
[2019-03-17] MEDS ORDERED: Famotidine 20 MG/2 ML SDV IVPUSH ONE (09:40)
[2019-03-17] MEDS ORDERED: HYDROmorphone 1 MG/ML Syringe IVPUSH ONE (09:41)
[2019-03-17] MEDS ORDERED: Sodium Chloride 0.9% 10 ML Syringe FLUSH PRN (09:41)
[2019-03-17] MEDS ORDERED: Sodium Chloride 0.9% 1,000 ML IV SCH (09:45)
--- NOTE | 2019-03-17 09:47 | EDM.PDOC ---
ED HPI GENERAL MEDICAL PROBLEM - General Chief Complaint: Abdominal Pain Stated Complaint: ABDOMINAL AND BACK PAIN Time Seen by Provider: 03/17/19 09:31 Source of Information: Reports: Patient, RN Notes Reviewed - History of Present Illness INITIAL COMMENTS - FREE TEXT/NARRATIVE: 23-year-old female had onset of periumbilical and left-sided abdominal pain last evening that is continued through the night into this morning. She also has been vomiting and also has had some loose fairly watery diarrhea. She has had many prior similar episodes off and on for about the past "7 years". She states at one point she was thought to have endometriosis but she did have laparoscopy not too long ago and "everything was clear from a pelvic standpoint ". She believes that she may have some gluten sensitivity, tries to avoid it but it doesn't sound like she has been doing that completely. She states she does have an appointment to see a salesperson art objects in about 4-6 weeks. Generalized Pain Score (Numeric/FACES): 8 - Related Data Allergies Allergy/AdvReac Type Severity Reaction Status Date / Time codeine Allergy Other Verified 03/17/19 09:18 diazepam [From Valium] Allergy Other Verified 03/17/19 09:18 ethinyl estradiol Allergy Rash Verified 03/17/19 09:18 [From Xulane] norelgestromin [From Xulane] Allergy Rash Verified 03/17/19 09:18 Penicillins Allergy Other Verified 03/17/19 09:18 Home Meds: Home Meds Pantoprazole [ProTONIX] 40 mg PO DAILY 11/13/18 [History] medroxyPROGESTERone [Depo-Provera Contraceptive] 150 mg IM ASDIRECTED 11/13/18 [ History] Ondansetron [Zofran ODT] 4 mg PO Q6H PRN #20 tab.dis 03/06/19 [Rx] Venlafaxine HCl [Venlafaxine ER] 150 mg PO DAILY 03/06/19 [History] Dicyclomine [Bentyl] 10 mg PO DAILY 03/17/19 [History] Ondansetron [Zofran ODT] 4 mg PO Q6H PRN #10 tab.dis 03/17/19 [Rx] traZODone HCl [Trazodone HCl] 50 mg PO BEDTIME 03/17/19 [History] Past Medical History - Past Health History Medical/Surgical History: Denies Medical/Surgical History HEENT History: Reports: Impaired Vision Other HEENT History: wears eyeglasses. 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 Musculoskeletal History: Reports: None Neurological History: Reports: Migraines Psychiatric History: Reports: None Endocrine/Metabolic History: Reports: None Hematologic History: Reports: None Immunologic History: Reports: None Oncologic (Cancer) History: Reports: None Dermatologic History: Reports: None - Infectious Disease History Infectious Disease History: Reports: Chicken Pox - Past Surgical History Head Surgeries/Procedures: Reports: None HEENT Surgical History: Reports: Oral Surgery Cardiovascular Surgical History: Reports: None Respiratory Surgical History: Reports: None GI Surgical History: Reports: None Female Surgical History: Reports: None Endocrine Surgical History: Reports: None Neurological Surgical History: Reports: None Musculoskeletal Surgical History: Reports: None Oncologic Surgical History: Reports: None Dermatological Surgical History: Reports: None Social & Family History - Tobacco Use Smoking Status *Q: Never Smoker - Caffeine Use Caffeine Use: Reports: Soda - Recreational Drug Use Recreational Drug Use: No ED ROS GENERAL - Review of Systems Review Of Systems: See Below Constitutional: Denies: Fever, Chills, Diaphoresis Respiratory: Denies: Shortness of Breath Cardiovascular: Denies: Chest Pain GI/Abdominal: Reports: Diarrhea, Nausea, Vomiting Musculoskeletal: Denies: Back Pain Skin: Reports: No Symptoms Neurological: Reports: No Symptoms ED EXAM, GI/ABD - Physical Exam Exam: See Below General Appearance: Alert, Mild Distress Throat/Mouth: Other (Oral mucosa is somewhat dry) Head: Atraumatic Neck: Supple, Full Range of Motion Respiratory/Chest: No Respiratory Distress, Lungs Clear, Normal Breath Sounds Cardiovascular: Tachycardia GI/Abdominal Exam: Soft, Tender (Mild tenderness upper mid abdomen mild to moderate tenderness periumbilical and left mid abdomen, minimal tenderness right lower quadrant.) Course - Vital Signs Last Recorded V/S: Last Vital Signs Temp 97.3 F 03/17/19 09:18 Pulse 120 H 03/17/19 09:18 Resp 19 03/17/19 09:18 BP 103/69 03/17/19 09:18 Pulse Ox 95 03/17/19 09:18 - Orders/Labs/Meds Orders: Active Orders 24 hr Category Date Time Status Peripheral IV Care [RC] . DIRECTED Care 03/17/19 09:41 Active Peripheral IV Insertion Adult [OM.PC] Stat Oth 03/17/19 09:40 Ordered Labs: Laboratory Tests 03/17/19 03/17/19 03/17/19 Range/Units 09:55 09:55 09:55 WBC 5.14 (3.98-10.04) K/mm3 RBC 4.82 (3.98-5.22) M/mm3 Hgb 13.8 (11.2-15.7) gm/L Hct 42.9 (34.1-44.9) % MCV 89.0 (79.4-94.8) fl MCH 28.6 (25.6-32.2) pg MCHC 32.2 (32.2-35.5) g/dl RDW Std Deviation 42.5 (36.4-46.3) fL Plt Count 229 (182-369) K/mm3 MPV 10.1 (9.4-12.3) fl Neut % (Auto) 67.5 (34.0-71.1) % Lymph % (Auto) 18.3 L (19.3-51.7) % Owen % (Auto) 13.8 H (4.7-12.5) % Eos % (Auto) 0.2 L (0.7-5.8) Baso % (Auto) 0.2 (0.1-1.2) % Neut # (Auto) 3.47 (1.56-6.13) K/mm3 Lymph # (Auto) 0.94 L (1.18-3.74) K/mm3 Owen # (Auto) 0.71 H (0.24-0.36) K/mm3 Eos # (Auto) 0.01 L (0.04-0.36) K/mm3 Baso # (Auto) 0.01 (0.01-0.08) K/mm3 Sodium 139 (136-145) mEq/L Potassium 3.5 (3.5-5.1) mEq/L Chloride 102 (98-107) mEq/L Carbon Dioxide 27 (21-32) mEq/L Anion Gap 13.5 (5-15) BUN 9 (7-18) mg/dL Creatinine 0.9 (0.55-1.02) mg/dL Est Cr Clr Drug Dosing 81.79 mL/min Estimated GFR (MDRD) > 60 (>60) mL/min BUN/Creatinine Ratio 10.0 L (14-18) Glucose 83 (74-106) mg/dL Calcium 8.8 (8.5-10.1) mg/dL Total Bilirubin 0.5 (0.2-1.0) mg/dL AST 21 (15-37) U/L ALT 23 (14-59) U/L Alkaline Phosphatase 78 (46-116) U/L C-Reactive Protein 2.0 H* (<1.0) mg/dL Total Protein 7.3 (6.4-8.2) g/dl Albumin 4.0 (3.4-5.0) g/dl Globulin 3.3 gm/dL Albumin/Globulin Ratio 1.2 (1-2) Meds: Medications Discontinued Medications Generic Name Dose Route Start Last Admin Trade Name Freq PRN Reason Stop Dose Admin Famotidine 20 mg 03/17/19 09:40 03/17/19 10:05 Pepcid IVPUSH 03/17/19 09:41 20 mg ONETIME ONE Administration Hydromorphone HCl 0.5 mg 03/17/19 09:41 03/17/19 10:05 Dilaudid IVPUSH 03/17/19 09:42 0.5 mg ONETIME ONE Administration Sodium Chloride 1,000 mls @ 999 mls/hr 03/17/19 09:45 03/17/19 10:05 Normal Saline IV 999 mls/hr ONETIME RADHA Administration Metoclopramide HCl 5 mg 03/17/19 11:35 03/17/19 11:40 Reglan IVPUSH 03/17/19 11:36 5 mg ONETIME ONE Administration Ondansetron HCl 4 mg 03/17/19 09:40 03/17/19 10:05 Zofran IVPUSH 03/17/19 09:41 4 mg ONETIME ONE Administration Sodium Chloride 10 ml 03/17/19 09:41 03/17/19 10:05 Saline Flush FLUSH 10 ml ASDIRECTED PRN Administration Keep Vein Open Departure - Departure Time of Disposition: 11:37 Disposition: Home, Self-Care 01 Condition: Fair Clinical Impression: Abdominal pain Qualifiers: Abdominal location: lower abdomen, unspecified Qualified Code(s): R10.30 - Lower abdominal pain, unspecified Vomiting Qualifiers: Vomiting type: unspecified Vomiting Intractability: non-intractable Nausea presence: with nausea Qualified Code(s): R11.2 - Nausea with vomiting, unspecified Diarrhea Qualifiers: Diarrhea type: unspecified type Qualified Code(s): R19.7 - Diarrhea, unspecified - Discharge Information Prescriptions: Ondansetron [Zofran ODT] 4 mg PO Q6H PRN #10 tab.dis PRN Reason: Nausea/Vomiting Instructions: Abdominal Pain, Adult, Vomiting, Adult Referrals: Niki Nieto NP [Primary Care Provider] - Forms: ED Department Discharge, ED Return to Work/School Form Additional Instructions: Clear liquids until this evening, than very careful bland diet as tolerated, avoid all gluten type foods for now, Zofran every 6-8 hours if needed for any further nausea or vomiting, begin probiotic which is available OTC and take that twice daily for 1 week and thereafter as needed, follow-up clinic if not much better by Tuesday, return to ED as needed if symptoms worsening in any way, see GI specialist as planned. - My Orders Last 24 Hours: My Active Orders 03/17/19 09:40 Peripheral IV Insertion Adult [OM.PC] Stat 03/17/19 09:41 Peripheral IV Care [RC] . DIRECTED - Assessment/Plan Last 24 Hours: My Active Orders 03/17/19 09:40 Peripheral IV Insertion Adult [OM.PC] Stat 03/17/19 09:41 Peripheral IV Care [RC] . DIRECTED
[2019-03-17] MEDS ORDERED: Metoclopramide 10 MG/2 ML SDV IVPUSH ONE (11:35)
== END 2019-03-17 11:53 | disposition home or self-care (01) ==
LOC: JD.ED 09:12
DX: R11.2 Nausea with vomiting, unspecified (principal); R10.32 Left lower quadrant pain; R19.7 Diarrhea, unspecified; Z88.5 Allergy status to narcotic agent; Z88.0 Allergy status to penicillin; Z88.8 Allergy status to other drugs, medicaments and biological substances; Z79.899 Other long term (current) drug therapy; J45.909 Unspecified asthma, uncomplicated; K21.9 Gastro-esophageal reflux disease without esophagitis
CPT/HCPCS: 36415; 80053; 85025; 86140; 96361; 96374; 96375; 99284; J1170; J2405; J2765; J3490; J7040

== ENCOUNTER 2019-03-19 23:27 | Emergency (ER) | payer SELFPAY ==
[2019-03-20] MEDS ORDERED: Famotidine 20 MG/2 ML SDV IVPUSH ONE (00:06)
[2019-03-20] MEDS ORDERED: Sodium Chloride 0.9% 10 ML Syringe FLUSH PRN (00:06)
[2019-03-20] MEDS ORDERED: Ondansetron 4 MG/2 ML SDV IVPUSH ONE (00:06)
--- NOTE | 2019-03-20 00:07 | EDM.PDOC ---
ED HPI GENERAL MEDICAL PROBLEM - General Chief Complaint: Abdominal Pain Stated Complaint: EXTREME ABDOMINAL PAIN AND EXTREMLY WEAK Time Seen by Provider: 03/19/19 23:53 Source of Information: Reports: Patient, RN Notes Reviewed - History of Present Illness INITIAL COMMENTS - FREE TEXT/NARRATIVE: 23 year old female comes in with abd pain, nausea, vomiting and generalized weakness. She also presented to our ED 2 days ago with similar sx. but also having diarrhea 2 days ago. See record of that visit for details. No further diarrhea but still nauseated and further vomiting. Intemitent generalized abd pain and cramping. No chest pain or difficulty breathing. Has been having abd pain off and on for "7 yrs" Abdomen Pain Score (Numeric/FACES): 6 Lower Back Pain Score (Numeric/FACES): 7 - Related Data Allergies Allergy/AdvReac Type Severity Reaction Status Date / Time codeine Allergy Other Verified 03/17/19 09:18 diazepam [From Valium] Allergy Other Verified 03/17/19 09:18 ethinyl estradiol Allergy Rash Verified 03/17/19 09:18 [From Xulane] norelgestromin [From Xulane] Allergy Rash Verified 03/17/19 09:18 Penicillins Allergy Other Verified 03/17/19 09:18 Home Meds: Home Meds Pantoprazole [ProTONIX] 40 mg PO DAILY 11/13/18 [History] medroxyPROGESTERone [Depo-Provera Contraceptive] 150 mg IM ASDIRECTED 11/13/18 [ History] Ondansetron [Zofran ODT] 4 mg PO Q6H PRN #20 tab.dis 03/06/19 [Rx] Venlafaxine HCl [Venlafaxine ER] 150 mg PO DAILY 03/06/19 [History] Dicyclomine [Bentyl] 10 mg PO DAILY 03/17/19 [History] Ondansetron [Zofran ODT] 4 mg PO Q6H PRN #10 tab.dis 03/17/19 [Rx] traZODone HCl [Trazodone HCl] 50 mg PO BEDTIME 03/17/19 [History] Past Medical History - Past Health History Medical/Surgical History: Denies Medical/Surgical History HEENT History: Reports: Impaired Vision Other HEENT History: wears eyeglasses. Cardiovascular History: Reports: None Respiratory History: Reports: Asthma Gastrointestinal History: Reports: GERD Genitourinary History: Reports: None PHYSICAL CHEMIST History: Reports: Other (See Below) Other PHYSICAL CHEMIST History: chronic pelvic pain Musculoskeletal History: Reports: None Neurological History: Reports: Migraines Psychiatric History: Reports: None Endocrine/Metabolic History: Reports: None Hematologic History: Reports: None Immunologic History: Reports: None Oncologic (Cancer) History: Reports: None Dermatologic History: Reports: None - Infectious Disease History Infectious Disease History: Reports: Chicken Pox - Past Surgical History Head Surgeries/Procedures: Reports: None HEENT Surgical History: Reports: Oral Surgery Cardiovascular Surgical History: Reports: None Respiratory Surgical History: Reports: None GI Surgical History: Reports: None Female Surgical History: Reports: None Endocrine Surgical History: Reports: None Neurological Surgical History: Reports: None Musculoskeletal Surgical History: Reports: None Oncologic Surgical History: Reports: None Dermatological Surgical History: Reports: None Social & Family History - Tobacco Use Smoking Status *Q: Never Smoker - Caffeine Use Caffeine Use: Reports: None - Recreational Drug Use Recreational Drug Use: No ED ROS GENERAL - Review of Systems Review Of Systems: See Below Constitutional: Denies: Fever, Chills, Diaphoresis HEENT: Denies: Sinus Problem, Throat Pain Respiratory: Denies: Shortness of Breath, Pleuritic Chest Pain Cardiovascular: Denies: Chest Pain GI/Abdominal: Reports: Abdominal Pain, Diarrhea (gone), Nausea, Vomiting. Denies: Hematemesis, Hematochezia, Melena Musculoskeletal: Reports: No Symptoms Skin: Reports: No Symptoms Neurological: Reports: Dizziness, Weakness (generalized) ED EXAM, GI/ABD - Physical Exam Exam: See Below General Appearance: Alert, Mild Distress Eyes: Bilateral: Normal Appearance Throat/Mouth: Normal Inspection, Normal Oropharynx Head: Atraumatic Neck: Supple Respiratory/Chest: No Respiratory Distress, Lungs Clear, Normal Breath Sounds Cardiovascular: Regular Rate, Rhythm GI/Abdominal Exam: Soft, Tender (mild upper mid and mid abd tednerness). No: Guarding, Rebound Back Exam: No: CVA Tenderness (L), CVA Tenderness (R) Extremities: Normal Inspection, Normal Range of Motion Neurological: Alert, Oriented, No Motor/Sensory Deficits Skin Exam: Warm, Dry, Normal Color. No: Rash Course - Vital Signs Last Recorded V/S: Last Vital Signs Temp 98 F 05/06/19 23:35 Pulse 94 03/19/19 23:35 Resp 20 03/19/19 23:35 BP 121/81 03/19/19 23:35 Pulse Ox 97 03/19/19 23:35 - Orders/Labs/Meds Orders: Active Orders 24 hr Category Date Time Status Peripheral IV Care [RC] . DIRECTED Care 03/20/19 00:06 Active Abdomen 2V AP Flat Upright [CR] Stat Exams 03/20/19 00:55 Taken Peripheral IV Insertion Adult [OM.PC] Stat Oth 03/20/19 00:06 Ordered Labs: Laboratory Tests 03/20/19 03/20/19 03/20/19 Range/Units 00:20 00:20 00:20 WBC 4.28 (3.98-10.04) K/mm3 RBC 5.42 H (3.98-5.22) M/mm3 Hgb 15.4 D (11.2-15.7) gm/L Hct 47.8 H (34.1-44.9) % MCV 88.2 (79.4-94.8) fl MCH 28.4 (25.6-32.2) pg MCHC 32.2 (32.2-35.5) g/dl RDW Std Deviation 42.2 (36.4-46.3) fL Plt Count 220 (182-369) K/mm3 MPV 10.5 (9.4-12.3) fl Neut % (Auto) 35.3 (34.0-71.1) % Lymph % (Auto) 50.2 (19.3-51.7) % Walsh % (Auto) 13.1 H (4.7-12.5) % Eos % (Auto) 0.7 (0.7-5.8) Baso % (Auto) 0.5 (0.1-1.2) % Neut # (Auto) 1.51 L (1.56-6.13) K/mm3 Lymph # (Auto) 2.15 (1.18-3.74) K/mm3 Walsh # (Auto) 0.56 H (0.24-0.36) K/mm3 Eos # (Auto) 0.03 L (0.04-0.36) K/mm3 Baso # (Auto) 0.02 (0.01-0.08) K/mm3 Manual Slide Review Abnormal smear Sodium 140 (136-145) mEq/L Potassium 3.4 L (3.5-5.1) mEq/L Chloride 102 (98-107) mEq/L Carbon Dioxide 29 (21-32) mEq/L Anion Gap 12.4 (5-15) BUN 6 L (7-18) mg/dL Creatinine 0.8 (0.55-1.02) mg/dL Est Cr Clr Drug Dosing 92.02 mL/min Estimated GFR (MDRD) > 60 (>60) mL/min BUN/Creatinine Ratio 7.5 L (14-18) Glucose 94 (74-106) mg/dL Calcium 9.4 (8.5-10.1) mg/dL Total Bilirubin 0.3 (0.2-1.0) mg/dL AST 17 (15-37) U/L ALT 21 (14-59) U/L Alkaline Phosphatase 80 (46-116) U/L C-Reactive Protein 2.0 H* (<1.0) mg/dL Total Protein 8.1 (6.4-8.2) g/dl Albumin 4.2 (3.4-5.0) g/dl Globulin 3.9 gm/dL Albumin/Globulin Ratio 1.1 (1-2) Meds: Medications Discontinued Medications Generic Name Dose Route Start Last Admin Trade Name Freq PRN Reason Stop Dose Admin Famotidine 20 mg 03/20/19 00:06 03/20/19 00:27 Pepcid IVPUSH 03/20/19 00:07 20 mg ONETIME ONE Administration Hydromorphone HCl 0.5 mg 03/20/19 01:37 03/20/19 01:43 Dilaudid IVPUSH 03/20/19 01:38 0.5 mg ONETIME ONE Administration Sodium Chloride 1,000 mls @ 999 mls/hr 03/20/19 00:15 03/20/19 00:24 Normal Saline IV 999 mls/hr ONETIME RADHA Administration Ondansetron HCl 4 mg 03/20/19 00:06 03/20/19 00:25 Zofran IVPUSH 03/20/19 00:07 4 mg ONETIME ONE Administration Sodium Chloride 10 ml 03/20/19 00:06 03/20/19 00:27 Saline Flush FLUSH 10 ml ASDIRECTED PRN Administration Keep Vein Open - Re-Assessments/Exams Free Text/Narrative Re-Assessment/Exam: 03/20/19 05:39 WBC normal, chemistries also all relatively normal, Have given IV NS 1 liter, zofran IV, no vomiting while in the ED, has not filled the zofran prescribed 2 days ago, discharge instr. as documented. Departure - Departure Time of Disposition: 01:39 Disposition: Home, Self-Care 01 Condition: Fair Clinical Impression: Abdominal pain Qualifiers: Abdominal location: lower abdomen, unspecified Qualified Code(s): R10.30 - Lower abdominal pain, unspecified Nausea & vomiting Qualifiers: Vomiting type: unspecified Vomiting Intractability: non-intractable Qualified Code(s): R11.2 - Nausea with vomiting, unspecified Diarrhea Qualifiers: Diarrhea type: unspecified type Qualified Code(s): R19.7 - Diarrhea, unspecified - Discharge Information Instructions: Diarrhea, Adult, Nausea and Vomiting, Adult, [id number], Abdominal Pain, Adult, [id number] Referrals: Niki Nieto NP [Primary Care Provider] - Forms: ED Department Discharge, ED Return to Work/School Form Additional Instructions: continue clear liquids until pain resolving. zofran as previously prescribed if needed for further nausea or vomiting. Begin probiotic as previously suggested twice daily for 1 week and thereafter as needed. Tylenol q 8 hr if needed for mild to moderate pain or 1/2 tablet hydrocodone 5/325 with 500 mg tylenol q 8 hr if needed for severe pain. Follow up clinic as planned. - My Orders Last 24 Hours: My Active Orders 03/20/19 00:06 Peripheral IV Care [RC] . DIRECTED Peripheral IV Insertion Adult [OM.PC] Stat 03/20/19 00:55 Abdomen 2V AP Flat Upright [CR] Stat - Assessment/Plan Last 24 Hours: My Active Orders 03/20/19 00:06 Peripheral IV Care [RC] . DIRECTED Peripheral IV Insertion Adult [OM.PC] Stat 03/20/19 00:55 Abdomen 2V AP Flat Upright [CR] Stat
[2019-03-20] MEDS ORDERED: Sodium Chloride 0.9% 1,000 ML IV SCH (00:15)
[2019-03-20] MEDS ORDERED: HYDROmorphone 0.5 MG/0.5 ML Syringe IVPUSH ONE (01:37)
--- NOTE | 2019-03-20 08:11 | CR ---
Abdomen: Supine and upright views of the abdomen were obtained. Comparison: No prior abdominal x-ray, prior abdominal and pelvic CT study of 03/06/19. Bowel gas pattern is normal. No abnormal calcifications or soft tissue abnormality is seen. Bony structures are unremarkable. No free air is seen. Impression: 1. Nothing acute is identified on two-view abdominal exam. Diagnostic code #1
== END 2019-03-20 01:50 | disposition home or self-care (01) ==
LOC: JD.ED 23:27
DX: R10.30 Lower abdominal pain, unspecified (principal); R11.2 Nausea with vomiting, unspecified; R19.7 Diarrhea, unspecified; K21.9 Gastro-esophageal reflux disease without esophagitis; J45.909 Unspecified asthma, uncomplicated; Z79.899 Other long term (current) drug therapy; Z88.0 Allergy status to penicillin; Z88.5 Allergy status to narcotic agent; Z88.8 Allergy status to other drugs, medicaments and biological substances
CPT/HCPCS: 36415; 74019; 80053; 85025; 86140; 96361; 96374; 96375; 99284; J1170; J2405; J3490; J7040

== ENCOUNTER 2019-03-21 15:27 | Emergency (ER) | payer SELFPAY ==
[2019-03-21] MEDS ORDERED: Ondansetron 4 MG/2 ML SDV IVPUSH ONE (16:20)
[2019-03-21] MEDS ORDERED: HYDROmorphone 1 MG/ML Syringe IVPUSH ONE (16:21)
--- NOTE | 2019-03-21 16:26 | EDM.PDOC ---
ED HPI GENERAL MEDICAL PROBLEM - General Chief Complaint: Abdominal Pain Stated Complaint: INCOHERENT Time Seen by Provider: 03/21/19 16:16 Source of Information: Reports: Patient, Family (mother) History Limitations: Reports: No Limitations - History of Present Illness INITIAL COMMENTS - FREE TEXT/NARRATIVE: 23-year-old female presents to the ED with a chronic history of recurrent abdominal pain which is mostly periumbilical but is felt across her entire abdomen at times. Pain comes first and then she usually has nausea and vomiting. She's had intractable nausea and vomiting for the last 2 and half days. It is bilious emesis without blood. Has developed a very paroxysmal productive sounding cough. She is unsure about fever or chills. Hasn't had much to eat for the last 2 days. She is also having some diarrhea. Has had a laparoscopic procedure carried out to make sure that she did not have endometriosis and she had normal gynecological organs. She is on Depo-Medrol shots to prevent . Is very dramatic in her presentation to the ED falling onto the bed and not answering the nurses questions. Mother provides most of the history. Onset: Other (Chronic problems with abdominal pain.) Duration: Chronic (She has had similar broad for many months.) Location: Reports: Abdomen (With intractable nausea and vomiting associated with development of diffuse periumbilical abdominal pain.) Quality: Reports: Other Severity: Severe (Cramping abdominal pain) Improves with: Reports: None Worsens with: Reports: None Context: Denies: Activity, Exercise, Lifting, Sick Contact, Trauma, Other Associated Symptoms: Reports: Cough, cough w sputum (Productive sounding cough.) , Headaches, Loss of Appetite, Malaise, Nausea/Vomiting, Shortness of Breath, Weakness (Repetitive and chronic.). Denies: Confusion, Chest Pain, Diaphoresis , Fever/Chills, Rash, Seizure, Syncope Treatments CAMOUFLAGE SPECIALIST: Reports: Other (see below) (None is nothing will stay down.) - Related Data Allergies Allergy/AdvReac Type Severity Reaction Status Date / Time codeine Allergy Other Verified 03/21/19 15:47 diazepam [From Valium] Allergy Other Verified 03/21/19 15:47 ethinyl estradiol Allergy Rash Verified 03/21/19 15:47 [From Xulane] norelgestromin [From Xulane] Allergy Rash Verified 03/21/19 15:47 Penicillins Allergy Other Verified 03/21/19 15:47 Home Meds: Home Meds Pantoprazole [ProTONIX] 40 mg PO DAILY 11/13/18 [History] medroxyPROGESTERone [Depo-Provera Contraceptive] 150 mg IM ASDIRECTED 11/13/18 [ History] Ondansetron [Zofran ODT] 4 mg PO Q6H PRN #20 tab.dis 03/06/19 [Rx] Venlafaxine HCl [Venlafaxine ER] 150 mg PO DAILY 03/06/19 [History] Dicyclomine [Bentyl] 10 mg PO DAILY 03/17/19 [History] Ondansetron [Zofran ODT] 4 mg PO Q6H PRN #10 tab.dis 03/17/19 [Rx] traZODone HCl [Trazodone HCl] 50 mg PO BEDTIME 03/17/19 [History] Promethazine [Phenergan] 25 mg PO Q6H PRN #15 tab 03/21/19 [Rx] Topiramate [Topamax] 25 mg PO BEDTIME #40 tab 03/21/19 [Rx] Past Medical History - Past Health History Medical/Surgical History: Denies Medical/Surgical History HEENT History: Reports: Impaired Vision Other HEENT History: wears eyeglasses. Cardiovascular History: Reports: None Respiratory History: Reports: Asthma Gastrointestinal History: Reports: GERD Genitourinary History: Reports: None PACKING SHED SUPERVISOR History: Reports: Other (See Below) Other PACKING SHED SUPERVISOR History: chronic pelvic pain Musculoskeletal History: Reports: None Neurological History: Reports: Migraines Psychiatric History: Reports: None Endocrine/Metabolic History: Reports: None Hematologic History: Reports: None Immunologic History: Reports: None Oncologic (Cancer) History: Reports: None Dermatologic History: Reports: None - Infectious Disease History Infectious Disease History: Reports: Chicken Pox - Past Surgical History Head Surgeries/Procedures: Reports: None HEENT Surgical History: Reports: Oral Surgery Cardiovascular Surgical History: Reports: None Respiratory Surgical History: Reports: None GI Surgical History: Reports: None Female Surgical History: Reports: None Endocrine Surgical History: Reports: None Neurological Surgical History: Reports: None Musculoskeletal Surgical History: Reports: None Oncologic Surgical History: Reports: None Dermatological Surgical History: Reports: None Social & Family History - Tobacco Use Smoking Status *Q: Never Smoker - Caffeine Use Caffeine Use: Reports: None - Recreational Drug Use Recreational Drug Use: No - Living Situation & Occupation Living situation: Reports: Single, with Family Occupation: Employed ED ROS GENERAL - Review of Systems Review Of Systems: See Below Constitutional: Reports: Chills, Malaise, Weakness, Fatigue, Decreased Appetite , Weight Loss. Denies: Fever HEENT: Reports: No Symptoms Respiratory: Reports: Shortness of Breath, Cough. Denies: Wheezing Cardiovascular: Reports: No Symptoms. Denies: Dyspnea on Exertion, Edema, Lightheadedness, Orthopnea, Palpitations, PND, Syncope, Other Endocrine: Reports: Fatigue GI/Abdominal: Reports: Abdominal Pain, Diarrhea (Chronic abdominal pain almost on a daily basis. It is mostly periumbilical. Claims that she has intermittent diarrhea.), Nausea, Vomiting (Recurrent vomiting with bilious emesis. No hematemesis.). Denies: Distension, Flatus, Hematemesis, Hematochezia, Melena, Other : Reports: No Symptoms, Other (Please are regular because she is on Depo- Provera shots. She will spot intermittently. She did have a) Musculoskeletal: Reports: No Symptoms ( laparoscopic investigation to rule out endometriosis due to chronic pelvic pain complaints but no endometriosis was identified.) Skin: Reports: No Symptoms Neurological: Reports: Dizziness, Headache, Numbness, Tingling ( Hyperventilation at times causing numbness and tingling and paresthesias.) Psychiatric: Reports: Anxiety, Mood Lability, Other Hematologic/Lymphatic: Reports: No Symptoms Immunologic: Reports: No Symptoms (Insomnia) ED EXAM, GI/ABD - Physical Exam Exam: See Below Exam Limited By: No Limitations General Appearance: Alert, WD/WN, Moderate Distress, Other (Found to be overly dramatic. She has mildly pallid in color.) Eyes: Bilateral: Normal Appearance (No scleral icterus.) Throat/Mouth: Other (Mouth and tongue are dry.) Head: Atraumatic, Normocephalic Neck: Normal Inspection, Supple, Non-Tender, Full Range of Motion. No: Lymphadenopathy (L), Lymphadenopathy (R) Respiratory/Chest: No Respiratory Distress, No Accessory Muscle Use, Chest Non- Tender, Rhonchi (Rhonchi throughout the left lung field worrisome for pneumonia. ). No: Crackles, Rales, Wheezing Cardiovascular: Normal Peripheral Pulses, Regular Rate, Rhythm, No Edema, No Gallop, No Murmur, No Rub GI/Abdominal Exam: Soft (Bowel sounds are hyperactive in all 4 quadrants.), Non- Tender, Abnormal Bowel Sounds. No: Guarding, Rigid, Rebound, Tender Back Exam: Normal Inspection, Full Range of Motion. No: CVA Tenderness (L), CVA Tenderness (R) Extremities: Normal Inspection, Normal Range of Motion, Non-Tender, Normal Capillary Refill Neurological: Alert, Oriented, CN II-XII Intact, Normal Cognition, Normal Gait, No Motor/Sensory Deficits Psychiatric: Anxious Skin Exam: Warm, Dry, Intact, Normal Color, No Rash Course - Vital Signs Last Recorded V/S: Last Vital Signs Temp 37.1 C 03/21/19 15:42 Pulse 97 03/21/19 15:42 Resp 16 03/21/19 15:42 BP 127/83 03/21/19 15:42 Pulse Ox 100 03/21/19 15:42 - Orders/Labs/Meds Orders: Active Orders 24 hr Category Date Time Status Abdomen 1V Flat [CR] Stat Exams 03/21/19 16:24 Taken Chest 2V [CR] Stat Exams 03/21/19 16:23 Taken GISELE DIRECT [REF] Stat Lab 03/21/19 16:35 Received CELIAC AB TTG DGP TIGA [REF] Stat Lab 03/21/19 16:35 Received Labs: Laboratory Tests 03/21/19 03/21/19 03/21/19 Range/Units 16:32 16:32 16:35 WBC 5.37 (3.98-10.04) K/mm3 RBC 5.27 H (3.98-5.22) M/mm3 Hgb 14.8 (11.2-15.7) gm/L Hct 46.1 H (34.1-44.9) % MCV 87.5 (79.4-94.8) fl MCH 28.1 (25.6-32.2) pg MCHC 32.1 L (32.2-35.5) g/dl RDW Std Deviation 40.9 (36.4-46.3) fL Plt Count 256 (182-369) K/mm3 MPV 10.2 (9.4-12.3) fl Neutrophils % (Manual) 34 L (40-60) % Band Neutrophils % 1 (0-10) % Lymphocytes % (Manual) 59 H (20-40) % Atypical Lymphs % 0 % Monocytes % (Manual) 5 (2-10) % Eosinophils % (Manual) 1 (0.7-5.8) % Basophils % (Manual) 0 L (0.1-1.2) Platelet Estimate Adequate Plt Morphology Comment Normal RBC Morph Comment Normal Sodium (136-145) mEq/L Potassium (3.5-5.1) mEq/L Chloride (98-107) mEq/L Carbon Dioxide (21-32) mEq/L Anion Gap (5-15) BUN (7-18) mg/dL Creatinine (0.55-1.02) mg/dL Est Cr Clr Drug Dosing mL/min Estimated GFR (MDRD) (>60) mL/min BUN/Creatinine Ratio (14-18) Glucose (74-106) mg/dL Calcium (8.5-10.1) mg/dL Total Bilirubin (0.2-1.0) mg/dL AST (15-37) U/L ALT (14-59) U/L Alkaline Phosphatase (46-116) U/L C-Reactive Protein (<1.0) mg/dL Total Protein (6.4-8.2) g/dl Albumin (3.4-5.0) g/dl Globulin gm/dL Albumin/Globulin Ratio (1-2) Lipase (73-393) U/L Urine Color Yellow (Yellow) Urine Appearance Clear (Clear) Urine pH 8.5 H (5.0-8.0) Ur Specific [place] 1.020 (1.005-1.030) Urine Protein 1+ H (Negative) Urine Glucose (UA) Negative (Negative) Urine Ketones Negative (Negative) Urine Occult Blood Negative (Negative) Urine Nitrite Negative (Negative) Urine Bilirubin Negative (Negative) Urine Urobilinogen 1.0 (0.2-1.0) Ur Leukocyte Esterase Negative (Negative) Urine RBC Not seen (0-5) /hpf Urine WBC 0-5 (0-5) /hpf Ur Squamous Epith Cells 0-5 (0-5) /hpf Urine Bacteria Not seen (FEW) /hpf Urine Mucus Not seen (FEW) /hpf Urine Opiates Screen Negative (MCLYHB=357) Ur Buprenorphine Scrn Negative (CUTOFF=10) Ur Oxycodone Screen Negative (KYC3HA=919) Urine Methadone Screen Negative (YCAVNG=622) Ur Propoxyphene Screen Negative (PKGVIH=158) Ur Barbiturates Screen Negative (DDODOC=595) Ur Tricyclics Screen Negative (XGJYQZ=860) Ur Phencyclidine Scrn Negative (CUTOFF=25) Ur Amphetamine Screen Negative (NICDSC=753) U Methamphetamines Scrn Negative (AHMMDN=333) U Benzodiazepines Scrn Negative (NLDFUW=993) U Cocaine Metab Screen Negative (LWQOQN=398) U Marijuana (THC) Screen Presumptive positive H (CUTOFF=50) Mycoplasma pneumon IgM (NEGATIVE) 03/21/19 Range/Units 16:35 WBC (3.98-10.04) K/mm3 RBC (3.98-5.22) M/mm3 Hgb (11.2-15.7) gm/L Hct (34.1-44.9) % MCV (79.4-94.8) fl MCH (25.6-32.2) pg MCHC (32.2-35.5) g/dl RDW Std Deviation (36.4-46.3) fL Plt Count (182-369) K/mm3 MPV (9.4-12.3) fl Neutrophils % (Manual) (40-60) % Band Neutrophils % (0-10) % Lymphocytes % (Manual) (20-40) % Atypical Lymphs % % Monocytes % (Manual) (2-10) % Eosinophils % (Manual) (0.7-5.8) % Basophils % (Manual) (0.1-1.2) Platelet Estimate Plt Morphology Comment RBC Morph Comment Sodium 143 (136-145) mEq/L Potassium 3.9 (3.5-5.1) mEq/L Chloride 104 (98-107) mEq/L Carbon Dioxide 27 (21-32) mEq/L Anion Gap 15.9 H (5-15) BUN 9 (7-18) mg/dL Creatinine 0.9 (0.55-1.02) mg/dL Est Cr Clr Drug Dosing 81.79 mL/min Estimated GFR (MDRD) > 60 (>60) mL/min BUN/Creatinine Ratio 10.0 L (14-18) Glucose 87 (74-106) mg/dL Calcium 9.8 (8.5-10.1) mg/dL Total Bilirubin 0.3 (0.2-1.0) mg/dL AST 17 (15-37) U/L ALT 22 (14-59) U/L Alkaline Phosphatase 78 (46-116) U/L C-Reactive Protein 1.3 H* (<1.0) mg/dL Total Protein 7.9 (6.4-8.2) g/dl Albumin 3.9 (3.4-5.0) g/dl Globulin 4.0 gm/dL Albumin/Globulin Ratio 1.0 (1-2) Lipase 129 (73-393) U/L Urine Color (Yellow) Urine Appearance (Clear) Urine pH (5.0-8.0) Ur Specific [place] (1.005-1.030) Urine Protein (Negative) Urine Glucose (UA) (Negative) Urine Ketones (Negative) Urine Occult Blood (Negative) Urine Nitrite (Negative) Urine Bilirubin (Negative) Urine Urobilinogen (0.2-1.0) Ur Leukocyte Esterase (Negative) Urine RBC (0-5) /hpf Urine WBC (0-5) /hpf Ur Squamous Epith Cells (0-5) /hpf Urine Bacteria (FEW) /hpf Urine Mucus (FEW) /hpf Urine Opiates Screen (UTCTOD=354) Ur Buprenorphine Scrn (CUTOFF=10) Ur Oxycodone Screen (ZUF0EB=290) Urine Methadone Screen (DDHHPJ=521) Ur Propoxyphene Screen (GSPNJR=278) Ur Barbiturates Screen (JYVBXN=050) Ur Tricyclics Screen (WMFCMQ=754) Ur Phencyclidine Scrn (CUTOFF=25) Ur Amphetamine Screen (IVQRSH=116) U Methamphetamines Scrn (KLNVTI=024) U Benzodiazepines Scrn (EHDQPB=821) U Cocaine Metab Screen (LKWAZO=104) U Marijuana (THC) Screen (CUTOFF=50) Mycoplasma pneumon IgM Negative (NEGATIVE) Meds: Medications Discontinued Medications Generic Name Dose Route Start Last Admin Trade Name Freq PRN Reason Stop Dose Admin Hydromorphone HCl 1 mg 03/21/19 16:21 03/21/19 16:44 Dilaudid IVPUSH 03/21/19 16:22 1 mg ONETIME ONE Administration Dextrose/Sodium Chloride 1,000 mls @ 999 mls/hr 03/21/19 16:30 05/08/19 18:16 Dextrose 5%-Normal Saline IV 999 mls/hr ASDIRECTED RADHA Administration Promethazine HCl 25 mg/ Sodium 51 mls @ 100 mls/hr 03/21/19 18:11 03/21/19 18 :16 Chloride IV 03/21/19 18:41 100 mls/hr ONETIME ONE Administration Ondansetron HCl 4 mg 03/21/19 16:20 03/21/19 16:42 Zofran IVPUSH 03/21/19 16:21 4 mg ONETIME ONE Administration Ondansetron HCl Confirm 03/21/19 16:29 03/21/19 16:43 Zofran Administered 03/21/19 16:30 Not Given Dose 4 mg .ROUTE .[facility] ONE - Radiology Interpretation Free Text/Narrative:: 23-year-old female presents to the ED with chronic problems with abdominal pain which precipitate nausea and vomiting. Emesis is always been bilious. She has been having a lot of problems over the last 2 weeks. Not able to hardly eat at times. She claims she has intermittent low-grade diarrhea. She at present has a very paroxysmal productive sounding cough and rhonchi throughout the left lung field. The abdomen shows bowel sounds very active in all 4 quadrants. Localized guarding or tenderness elicited. Plan routine labs and other labs ordered at mother's request in terms of the celiac disease panel and antinuclear antibody. Serum lipase will be ordered as well. Urinalysis and urine drug screen as she may have nausea and vomiting related to chronic marijuana use. - Re-Assessments/Exams Free Text/Narrative Re-Assessment/Exam: 03/21/19 17:14 chest x-ray reveals slightly hyperinflated lung pagan. There is a very minimal infiltrate inferior lobe of the left lung. No definitive signs of pneumonia are evident. KUB reveals a normal bowel gas pattern with minimal stool in the colon. 03/21/19 17:16 Lab work reveals a normal white count at 5.37. Differential is pending. Hemoglobin is 14.8 with hematocrit of 46.1. MCV is normal at 87.5. Platelet count is 256,000. Urinalysis is negative for any signs of infection. Urine drug screen is positive for marijuana. 03/21/19 17:25 Chemistry is back and reveals a normal sodium 143. Potassium 3.9. Chloride 104 the bicarbonate of 27. Anion gap is 15.9. BUN is 9 with a creatinine of 0.9. GFR is greater than 60. Glucose is 87. Liver function normal. C-reactive protein is 1.3. Total protein 7.9 with albumin fraction of 3.9. Lipase 129. 03/21/19 17:58 differential on the white count came back at 39% neutrophils 1% bands and 59% lymphocytes indicating viral bronchitis. Mycoplasma pneumonia is screen was also negative. 03/21/19 18:13 patient remains quite nauseated. She is able to give a much more useful history at this time. She indicates that she developed confusion like there was a glitch in her brain where she could not speak for a period of time and confused. Within 20-30 minutes of this she developed a severe right hemicranial headache or classical migraine. We discussed the use of marijuana and his potential to cause hyperemesis syndrome but she indicates that she's had problems with her abdomen and recurrent nausea and vomiting for many years before she ever started using marijuana. She doesn't therefore except this is a plausable diagnosis. I'm going to give her Phenergan 25 mg IV at this time. Departure - Departure Time of Disposition: 19:05 Disposition: Home, Self-Care 01 Condition: Fair Clinical Impression: Cannabis hyperemesis syndrome concurrent with and due to cannabis abuse Headache, classical migraine Qualifiers: Status migrainosus presence: without status migrainosus Intractability: not intractable Qualified Code(s): G43.109 - Migraine with aura, not intractable, without status migrainosus - Discharge Information *PRESCRIPTION DRUG MONITORING PROGRAM REVIEWED*: Not Applicable *COPY OF PRESCRIPTION DRUG MONITORING REPORT IN PATIENT SHARAD: Not Applicable Prescriptions: Promethazine [Phenergan] 25 mg PO Q6H PRN #15 tab PRN Reason: Relief of nausea Topiramate [Topamax] 25 mg PO BEDTIME #40 tab Instructions: Cannabinoid Hyperemesis Syndrome Referrals: PCP,None [Primary Care Provider] - Forms: ED Department Discharge Additional Instructions: Evaluation the emergency room today in regards to development of inability to speak with marked confusion only's episode. This predated the development of a right hemicranial headache suggesting classical migraine headache with aura. Associated then development of nausea vomiting and diffuse abdominal pain. By history you have a chronic migraine headache problem that has not been really addressed with medications to prevent migraines from occurring. Just use of Topamax starting with 25 mg at bedtime for one week and then increasing to 50 mg at bedtime for at least 2 weeks before any other increase in dosage to try and bring migraine headaches under control. May use Zofran 4 mg under the tongue for nausea relief and Phenergan 25 mg by mouth same time to try and prevent nausea and vomiting. Phenergan is much more effective in preventing migraine headache from occurring at the can keep them down. Chest x-ray reveals that you have a viral bronchitis with no evidence of pneumonia on chest x-ray. Labs suggest a viral infection however. Lab tests reveal normal kidney function pancreas function and kidney function. X-ray of the abdomen showed no abnormalities a normal bowel gas pattern. Give some consideration to hyperemesis which is a nausea vomiting issue that can occur in some patients who use marijuana recreationally. Consider stop using marijuana for 3 or 4 weeks and see if nausea and vomiting is not improved. I have sent away other lab tests that will go to a reference lab in [place] and become available in about a week's time. This includes a celiac disease panel rule out and as well as antinuclear antibodies. You need to establish care with a physician here in [facility] so that appropriate medication management can be done. - My Orders Last 24 Hours: My Active Orders 03/21/19 16:23 Chest 2V [CR] Stat 03/21/19 16:24 Abdomen 1V Flat [CR] Stat 03/21/19 16:35 GISELE DIRECT [REF] Stat CELIAC AB TTG DGP TIGA [REF] Stat - Assessment/Plan Last 24 Hours: My Active Orders 03/21/19 16:23 Chest 2V [CR] Stat 03/21/19 16:24 Abdomen 1V Flat [CR] Stat 03/21/19 16:35 GISELE DIRECT [REF] Stat CELIAC AB TTG DGP TIGA [REF] Stat
[2019-03-21] MEDS ORDERED: Ondansetron 4 MG/2 ML SDV ONE (16:29)
[2019-03-21] MEDS ORDERED: Dextrose 5%-0.9% NaCl 1,000 ML IV SCH (16:30)
[2019-03-21] MEDS ORDERED: Promethazine 25 MG in Sodium Chloride 0.9% 50 ML IV ONE (18:11)
--- NOTE | 2019-03-22 08:34 | CR ---
Chest: Two views of the chest were obtained. Comparison: No prior chest x-ray. Mild increased density is seen within the left perihilar region. Lungs otherwise are clear. Bony structures are unremarkable. Impression: 1. Mild increased density within the left perihilar region. Early area of pneumonia is possible. Diagnostic code #3
--- NOTE | 2019-03-22 08:34 | CR ---
Abdomen: Supine view of the abdomen was obtained. Comparison: Prior abdominal x-ray of 03/20/19. Bowel gas pattern is normal. No abnormal calcifications or soft tissue abnormality is seen. Bony structures are unremarkable. Impression: 1. Nothing acute is seen on supine abdominal x-ray. Diagnostic code #1
== END 2019-03-21 19:03 | disposition home or self-care (01) ==
LOC: JD.ED 15:27
DX: G43.109 Migraine with aura, not intractable, without status migrainosus (principal); F12.188 Cannabis abuse with other cannabis-induced disorder; J45.909 Unspecified asthma, uncomplicated; K21.9 Gastro-esophageal reflux disease without esophagitis; Z88.5 Allergy status to narcotic agent; Z88.8 Allergy status to other drugs, medicaments and biological substances; Z88.0 Allergy status to penicillin; Z79.899 Other long term (current) drug therapy
CPT/HCPCS: 71046; 74018; 80053; 80306; 81001; 82784; 83516; 83690; 85007; 85027; 86038; 86140; 86738; 96361; 96365; 96375; 99283; J1170; J2405; J2550; J7042; J7050; 36415; 99284

== ENCOUNTER 2019-04-28 11:08 | Emergency (ER) | payer SELFPAY ==
[2019-04-28] MEDS ORDERED: Ondansetron 4 MG Tab.DIS PO ONE (11:46)
[2019-04-28] MEDS ORDERED: Pantoprazole 40 MG Tab.CR PO SCH (11:46)
--- NOTE | 2019-04-28 11:53 | EDM.PDOC ---
ED HPI GENERAL MEDICAL PROBLEM - General Chief Complaint: Chest Pain Stated Complaint: NAUSEA,VOMITING Time Seen by Provider: 04/28/19 11:25 Source of Information: Reports: Patient, RN Notes Reviewed History Limitations: Reports: No Limitations - History of Present Illness INITIAL COMMENTS - FREE TEXT/NARRATIVE: Patient is a 23-year-old female presents to the ED for the evaluation of mid sternal chest discomfort, and upper abdominal pain. The patient notes that she had an upper endoscopy done morning, and everything was okay however she started developing some midsternal chest discomfort today. This started this morning. She also is having some nausea, however she states that she normally has nausea. She is also having some bilious vomiting as well. She states that the chest discomfort feels more like a tightness or squeezing to the mid chest and epigastrium. She states that she does have a history of acid reflux, and does not take a PPI regularly for this only when needed. She states that the pain kind of comes and goes in cycles, she'll a few good days and then a few bad days. She has seen a GI specialist, and was given a prescription for Levsin, and was told to take this for around one week to see if it was any benefit, however she has not seen any benefit from this yet. She denies any tobacco use, however she did test positive for marijuana use during one of her last visits. She denies any diarrhea. Epigastric Pain Score (Numeric/FACES): 6 - Related Data Allergies Allergy/AdvReac Type Severity Reaction Status Date / Time codeine Allergy Other Verified 04/28/19 11:19 diazepam [From Valium] Allergy Other Verified 04/28/19 11:19 ethinyl estradiol Allergy Rash Verified 04/28/19 11:19 [From Xulane] norelgestromin [From Xulane] Allergy Rash Verified 04/28/19 11:19 Penicillins Allergy Other Verified 04/28/19 11:19 Home Meds: Home Meds Venlafaxine HCl [Venlafaxine ER] 150 mg PO DAILY 03/06/19 [History] traZODone HCl [Trazodone HCl] 50 mg PO BEDTIME 03/17/19 [History] Topiramate [Topamax] 25 mg PO BEDTIME #40 tab 03/21/19 [Rx] Hyoscyamine Sulfate [Levsin] 0.125 mg PO Q4H PRN 04/28/19 [History] Ondansetron [Zofran ODT] 4 mg PO Q8H PRN #28 tab.dis 04/28/19 [Rx] Past Medical History - Past Health History Medical/Surgical History: Denies Medical/Surgical History HEENT History: Reports: Impaired Vision Other HEENT History: wears eyeglasses. 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 Below) Other BLENDING KETTLE TENDER History: chronic pelvic pain Musculoskeletal History: Reports: None Neurological History: Reports: Migraines Psychiatric History: Reports: None Endocrine/Metabolic History: Reports: None Hematologic History: Reports: None Immunologic History: Reports: None Oncologic (Cancer) History: Reports: None Dermatologic History: Reports: None - Infectious Disease History Infectious Disease History: Reports: Chicken Pox - Past Surgical History Head Surgeries/Procedures: Reports: None HEENT Surgical History: Reports: Oral Surgery Cardiovascular Surgical History: Reports: None Respiratory Surgical History: Reports: None GI Surgical History: Reports: EGD Female Surgical History: Reports: None Endocrine Surgical History: Reports: None Neurological Surgical History: Reports: None Musculoskeletal Surgical History: Reports: None Oncologic Surgical History: Reports: None Dermatological Surgical History: Reports: None Social & Family History - Tobacco Use Smoking Status *Q: Never Smoker - Caffeine Use Caffeine Use: Reports: None - Recreational Drug Use Recreational Drug Use: No - Living Situation & Occupation Living situation: Reports: Single, with Family Occupation: Employed ED ROS GENERAL - Review of Systems Review Of Systems: See Below Constitutional: Reports: Chills. Denies: Fever HEENT: Reports: No Symptoms Respiratory: Reports: Shortness of Breath Cardiovascular: Reports: Chest Pain (chest discomfort) Endocrine: Reports: No Symptoms GI/Abdominal: Reports: Abdominal Pain (epigastric tenderness) : Reports: No Symptoms Musculoskeletal: Reports: No Symptoms Skin: Reports: No Symptoms Neurological: Reports: No Symptoms Psychiatric: Reports: No Symptoms Hematologic/Lymphatic: Reports: No Symptoms Immunologic: Reports: No Symptoms ED EXAM, GI/ABD - Physical Exam Exam: See Below Exam Limited By: No Limitations General Appearance: Alert, WD/WN, No Apparent Distress Throat/Mouth: Normal Inspection, Normal Lips, Normal Teeth, Normal Gums, Normal Oropharynx, Normal Voice, No Airway Compromise Respiratory/Chest: No Respiratory Distress, Lungs Clear, Normal Breath Sounds, No Accessory Muscle Use, Chest Non-Tender Cardiovascular: Normal Peripheral Pulses, Regular Rate, Rhythm, No Murmur GI/Abdominal Exam: Normal Bowel Sounds, Soft, No Organomegaly, No Distention, Tender (epigastrium) Extremities: Normal Inspection, Normal Capillary Refill Neurological: Alert, Oriented, Normal Cognition, No Motor/Sensory Deficits Psychiatric: Normal Affect, Normal Mood Skin Exam: Warm, Dry, Intact, Normal Color, No Rash Course - Vital Signs Last Recorded V/S: Last Vital Signs Temp 97.5 F 04/28/19 11:16 Pulse 79 04/28/19 11:16 Resp 16 04/28/19 11:16 BP 104/66 04/28/19 11:16 Pulse Ox 100 04/28/19 11:16 - Orders/Labs/Meds Orders: Active Orders 24 hr Category Date Time Status Pantoprazole [ProTONIX] Med 04/28/19 11:46 Active 40 mg PO DAILY Medication Orders Pantoprazole Sodium (Protonix) 40 mg PO DAILY [facility] Last Admin: 04/28/19 11:55 Dose: 40 mg Labs: Laboratory Tests 04/28/19 04/28/19 Range/Units 12:00 12:00 WBC 8.23 (3.98-10.04) K/mm3 RBC 4.64 (3.98-5.22) M/mm3 Hgb 13.4 (11.2-15.7) gm/L Hct 41.2 (34.1-44.9) % MCV 88.8 (79.4-94.8) fl MCH 28.9 (25.6-32.2) pg MCHC 32.5 (32.2-35.5) g/dl RDW Std Deviation 42.8 (36.4-46.3) fL Plt Count 344 D (182-369) K/mm3 MPV 10.3 (9.4-12.3) fl Neutrophils % (Manual) 63 H (40-60) % Band Neutrophils % 0 (0-10) % Lymphocytes % (Manual) 28 (20-40) % Atypical Lymphs % 0 % Monocytes % (Manual) 8 (2-10) % Eosinophils % (Manual) 1 (0.7-5.8) % Basophils % (Manual) 0 L (0.1-1.2) Platelet Estimate Adequate RBC Morph Comment Normal Sodium 140 (136-145) mEq/L Potassium 4.5 (3.5-5.1) mEq/L Chloride 105 (98-107) mEq/L Carbon Dioxide 26 (21-32) mEq/L Anion Gap 13.5 (5-15) BUN 12 (7-18) mg/dL Creatinine 0.8 (0.55-1.02) mg/dL Est Cr Clr Drug Dosing 87.98 mL/min Estimated GFR (MDRD) > 60 (>60) mL/min BUN/Creatinine Ratio 15.0 (14-18) Glucose 82 (74-106) mg/dL Calcium 9.1 (8.5-10.1) mg/dL Total Bilirubin 0.4 (0.2-1.0) mg/dL AST 16 (15-37) U/L ALT 22 (14-59) U/L Alkaline Phosphatase 65 (46-116) U/L Total Protein 6.9 (6.4-8.2) g/dl Albumin 3.8 (3.4-5.0) g/dl Globulin 3.1 gm/dL Albumin/Globulin Ratio 1.2 (1-2) Meds: Medications Generic Name Dose Route Start Last Admin Trade Name Freq PRN Reason Stop Dose Admin Pantoprazole Sodium 40 mg 04/28/19 11:46 04/28/19 11:55 Protonix PO 40 mg DAILY RADHA Administration Discontinued Medications Generic Name Dose Route Start Last Admin Trade Name Freq PRN Reason Stop Dose Admin Ondansetron HCl 4 mg 04/28/19 11:46 04/28/19 11:55 Zofran Odt PO 04/28/19 11:47 4 mg ONETIME ONE Administration - Re-Assessments/Exams Free Text/Narrative Re-Assessment/Exam: 04/28/19 11:57 Patient presents to the ED for evaluation of nausea and chest discomfort. Old records were reviewed, and the patient has used marijuana in the past, but states that her abdomen pain and issues have been present way before she ever started marijuana. Again marijuana hyperemesis syndrome was discussed with her , and she does not feel this as a possible diagnosis. I have ordered a CBC, CMP , 4 mg Zofran, and 40 mg pantoprazole for initial evaluation. I suspect this might be esophageal spasm due to the recent upper endoscopy. She should be on a PPI daily for prophylaxis. 04/28/19 12:55 The patient states that she does feel a little bit better, her labs have returned and are within normal limits. The patient will be discharged home with some tablets of Zofran, and recommendations to start a PPI daily. Departure - Departure Time of Disposition: 12:56 Disposition: Home, Self-Care 01 Condition: Fair Clinical Impression: Esophageal spasm, Nausea Acid reflux Qualifiers: Esophagitis presence: with esophagitis Qualified Code(s): K21.0 - Gastro- esophageal reflux disease with esophagitis - Discharge Information *PRESCRIPTION DRUG MONITORING PROGRAM REVIEWED*: No *COPY OF PRESCRIPTION DRUG MONITORING REPORT IN PATIENT SHARAD: No Prescriptions: Ondansetron [Zofran ODT] 4 mg PO Q8H PRN #28 tab.dis PRN Reason: Nausea Instructions: Food Choices for Gastroesophageal Reflux Disease, Adult, Easy-to- Read, Esophageal Spasm, Gastroesophageal Reflux Disease, Adult, [id number] Referrals: Niki Nieto NP [Primary Care Provider] - Forms: ED Department Discharge, ED Return to Work/School Form Additional Instructions: You have been evaluated in the ED today for your mid sternal chest discomfort and epigastric pain with nausea. You were treated with 40 mg pantoprazole, a PPI, and 4 mg Zofran, this did seem to help her symptoms. You were likely suffering from esophageal spasms at this time, this might be due to GERD. Recommend that you take an [id number] PPI like Prilosec on a daily basis, even if you don't feel acid reflux symptoms, to see if this doesn 't help relieve some of your discomfort. There is literature available that states sometimes peppermint oil may also help the feelings of esophageal spasms, please take 2 Altoid mints before meals as this has been shown to have some benefit in treating pain from esophageal spasms. We use peppermint oil as initial therapy because it relaxes esophageal smooth muscle and is generally well tolerated with minimal, if any, side effects. You have been provided with prescription for some more Zofran tablets, please take one tab dissolvable under your tongue every 8 hours as needed for nausea relief. [facility] [place] [facility] Please return to the ED if your symptoms should change or worsen. - My Orders Last 24 Hours: My Active Orders 04/28/19 11:46 Pantoprazole [ProTONIX] 40 mg PO DAILY - Assessment/Plan Last 24 Hours: My Active Orders 04/28/19 11:46 Pantoprazole [ProTONIX] 40 mg PO DAILY
== END 2019-04-28 13:12 | disposition home or self-care (01) ==
LOC: JD.ED 11:08
DX: K21.0 Gastro-esophageal reflux disease with esophagitis (principal); K22.4 Dyskinesia of esophagus; K21.9 Gastro-esophageal reflux disease without esophagitis; Z79.899 Other long term (current) drug therapy; Z88.5 Allergy status to narcotic agent; Z88.8 Allergy status to other drugs, medicaments and biological substances; Z88.0 Allergy status to penicillin
CPT/HCPCS: 36415; 80053; 85007; 85027; 99284; A9270; 99283

== ENCOUNTER 2020-01-27 13:20 | Emergency (ER) | payer SELFPAY ==
[2020-01-27] MEDS ORDERED: Ondansetron 4 MG/2 ML SDV IVPUSH ONE (13:47)
[2020-01-27] MEDS ORDERED: Sodium Chloride 0.9% 10 ML Syringe FLUSH PRN (13:48)
--- NOTE | 2020-01-27 13:53 | EDM.PDOC ---
ED HPI GENERAL MEDICAL PROBLEM - General Chief Complaint: Abdominal Pain Stated Complaint: 16WEEK PREG /ABDOMINAL PAIN Time Seen by Provider: 01/27/20 13:38 Source of Information: Reports: Patient History Limitations: Reports: No Limitations - History of Present Illness INITIAL COMMENTS - FREE TEXT/NARRATIVE: Patient is a 24-year-old female who presents with complaints of right lower/mid quadrant abdominal pain that started this morning. Patient is 16 weeks . States she has had some ligament pain, however this pain is different than her previous ligament pain. She has has had nausea and vomiting today. She has had "soft stools "for the last 2 days but denies any watery diarrhea. Denies any fever or chills. States that she had to leave work due to the pain. Patient has had no pelvic cramping or vaginal bleeding. Right Hip Pain Score (Numeric/FACES): 8 - Related Data Allergies Allergy/AdvReac Type Severity Reaction Status Date / Time codeine Allergy Other Verified 01/27/20 13:32 diazepam [From Valium] Allergy Other Verified 01/27/20 13:32 ethinyl estradiol Allergy Rash Verified 01/27/20 13:32 [From Xulane] norelgestromin [From Xulane] Allergy Rash Verified 01/27/20 13:32 Penicillins Allergy Other Verified 01/27/20 13:32 Home Meds: Home Meds Venlafaxine HCl [Venlafaxine ER] 150 mg PO DAILY 03/06/19 [History] traZODone HCl [Trazodone HCl] 50 mg PO BEDTIME 03/17/19 [History] Topiramate [Topamax] 25 mg PO BEDTIME #40 tab 03/21/19 [Rx] Hyoscyamine Sulfate [Levsin] 0.125 mg PO Q4H PRN 04/28/19 [History] Ondansetron [Zofran ODT] 4 mg PO Q8H PRN #28 tab.dis 04/28/19 [Rx] Past Medical History - Past Health History Medical/Surgical History: Denies Medical/Surgical History HEENT History: Reports: Impaired Vision Other HEENT History: wears eyeglasses. 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 History: chronic pelvic pain Musculoskeletal History: Reports: None Neurological History: Reports: Migraines Psychiatric History: Reports: None Endocrine/Metabolic History: Reports: None Hematologic History: Reports: None Immunologic History: Reports: None Oncologic (Cancer) History: Reports: None Dermatologic History: Reports: None - Infectious Disease History Infectious Disease History: Reports: Chicken Pox - Past Surgical History Head Surgeries/Procedures: Reports: None HEENT Surgical History: Reports: Oral Surgery Cardiovascular Surgical History: Reports: None Respiratory Surgical History: Reports: None GI Surgical History: Reports: EGD Female Surgical History: Reports: None Endocrine Surgical History: Reports: None Neurological Surgical History: Reports: None Musculoskeletal Surgical History: Reports: None Oncologic Surgical History: Reports: None Dermatological Surgical History: Reports: None Social & Family History - Tobacco Use Smoking Status *Q: Never Smoker - Caffeine Use Caffeine Use: Reports: None - Recreational Drug Use Recreational Drug Use: No - Living Situation & Occupation Living situation: Reports: Single, with Family Occupation: Employed ED ROS GENERAL - Review of Systems Review Of Systems: Comprehensive ROS is negative, except as noted in HPI. ED EXAM, GI/ABD - Physical Exam Exam: See Below Exam Limited By: No Limitations General Appearance: Alert, WD/WN, No Apparent Distress, Other (Nontoxic- appearing) Respiratory/Chest: No Respiratory Distress, Lungs Clear, Normal Breath Sounds, No Accessory Muscle Use, Chest Non-Tender Cardiovascular: Normal Peripheral Pulses, Regular Rate, Rhythm, No Edema, No Gallop, No JVD, No Murmur, No Rub GI/Abdominal Exam: Normal Bowel Sounds, Soft, No Organomegaly, No Distention, No Abnormal Bruit, No Mass, Tender (Right lower/mid tenderness.). No: Guarding , Rigid, Rebound (Female) Exam: Fundal Height (U/2), Other (FHT 154) Course - Vital Signs Last Recorded V/S: Last Vital Signs Temp 98.1 F 01/27/20 13:30 Pulse 87 01/27/20 13:30 Resp 16 01/27/20 13:30 BP 110/61 01/27/20 13:30 Pulse Ox 98 01/27/20 13:30 - Orders/Labs/Meds Orders: Active Orders 24 hr Category Date Time Status Peripheral IV Care [RC] . DIRECTED Care 01/27/20 13:48 Active Sodium Chloride 0.9% [Normal Saline] 1,000 ml Med 01/27/20 14:00 Active IV ASDIRECTED Sodium Chloride 0.9% [Saline Flush] Med 01/27/20 13:48 Active 10 ml FLUSH ASDIRECTED PRN Peripheral IV Insertion Adult [OM.PC] Stat Oth 01/27/20 13:47 Ordered Medication Orders Sodium Chloride (Normal Saline) 1,000 mls @ 999 mls/hr IV ASDIRECTED RADHA Last Admin: 01/27/20 14:07 Dose: 999 mls/hr Sodium Chloride (Saline Flush) 10 ml FLUSH ASDIRECTED PRN PRN Reason: Keep Vein Open Last Admin: 01/27/20 14:06 Dose: 10 ml Labs: Laboratory Tests 01/27/20 01/27/20 01/27/20 Range/Units 14:05 14:05 15:22 WBC 8.67 (3.98-10.04) K/mm3 RBC 4.22 (3.98-5.22) M/mm3 Hgb 12.1 (11.2-15.7) gm/dl Hct 37.8 (34.1-44.9) % MCV 89.6 (79.4-94.8) fl MCH 28.7 (25.6-32.2) pg MCHC 32.0 L (32.2-35.5) g/dl RDW Std Deviation 42.3 (36.4-46.3) fL Plt Count 319 (182-369) K/mm3 MPV 9.9 (9.4-12.3) fl Neut % (Auto) 70.1 (34.0-71.1) % Lymph % (Auto) 23.5 (19.3-51.7) % [place] % (Auto) 5.5 (4.7-12.5) % Eos % (Auto) 0.5 L (0.7-5.8) Baso % (Auto) 0.2 (0.1-1.2) % Neut # (Auto) 6.07 (1.56-6.13) K/mm3 Lymph # (Auto) 2.04 (1.18-3.74) K/mm3 [place] # (Auto) 0.48 H (0.24-0.36) K/mm3 Eos # (Auto) 0.04 (0.04-0.36) K/mm3 Baso # (Auto) 0.02 (0.01-0.08) K/mm3 Sodium 138 (136-145) mEq/L Potassium 3.5 (3.5-5.1) mEq/L Chloride 102 (98-107) mEq/L Carbon Dioxide 25 (21-32) mEq/L Anion Gap 14.5 (5-15) BUN 6 L (7-18) mg/dL Creatinine 0.5 L (0.55-1.02) mg/dL Est Cr Clr Drug Dosing 139.58 mL/min Estimated GFR (MDRD) > 60 (>60) mL/min BUN/Creatinine Ratio 12.0 L (14-18) Glucose 73 L (74-106) mg/dL Calcium 8.8 (8.5-10.1) mg/dL Total Bilirubin 0.3 (0.2-1.0) mg/dL AST 13 L (15-37) U/L ALT 19 (14-59) U/L Alkaline Phosphatase 70 (46-116) U/L C-Reactive Protein 1.1 H* (<1.0) mg/dL Total Protein 7.3 (6.4-8.2) g/dl Albumin 3.7 (3.4-5.0) g/dl Globulin 3.6 gm/dL Albumin/Globulin Ratio 1.0 (1-2) Urine Color Yellow (Yellow) Urine Appearance Clear (Clear) Urine pH 7.5 (5.0-8.0) Ur Specific [place] 1.025 (1.005-1.030) Urine Protein 1+ H (Negative) Urine Glucose (UA) Negative (Negative) Urine Ketones Trace H (Negative) Urine Occult Blood Negative (Negative) Urine Nitrite Negative (Negative) Urine Bilirubin Negative (Negative) Urine Urobilinogen 0.2 (0.2-1.0) Ur Leukocyte Esterase Negative (Negative) Urine RBC 0-5 (0-5) /hpf Urine WBC 0-5 (0-5) /hpf Ur Squamous Epith Cells 5-10 H (0-5) /hpf Urine Bacteria Rare (FEW) /hpf Urine Mucus Moderate H (FEW) /hpf Meds: Medications Generic Name Dose Route Start Last Admin Trade Name Freq PRN Reason Stop Dose Admin Sodium Chloride 1,000 mls @ 999 mls/hr 01/27/20 14:00 01/27/20 14:07 Normal Saline IV 999 mls/hr ASDIRECTED RADHA Administration Sodium Chloride 10 ml 01/27/20 13:48 01/27/20 14:06 Saline Flush FLUSH 10 ml ASDIRECTED PRN Administration Keep Vein Open Discontinued Medications Generic Name Dose Route Start Last Admin Trade Name [place] PRN Reason Stop Dose Admin Ondansetron HCl 4 mg 01/27/20 13:47 01/27/20 14:06 Zofran IVPUSH 01/27/20 13:48 4 mg ONETIME ONE Administration - Re-Assessments/Exams Free Text/Narrative Re-Assessment/Exam: 01/27/20 13:52 Patient's history and exam are concerning for an appendicitis. Since patient is 16 weeks . We will complete a ultrasound of the abdomen as opposed to a CT. Have ordered basic labs to include a CBC, CMP, lipase and CRP. We will give her a liter of normal saline as well as Zofran for nausea. 01/27/20 15:20 Patient's hematology was grossly unremarkable. Her WBCs are normal. Electrolytes are normal. Kidney function is normal. CRP is very minimally elevated at 1.1 Ultrasound of the abdomen was unable to visualize the appendix , however there is no free fluid being seen. Called and spoke to the on-call surgeon, Dr. Campo. She discussed that the definitive test for appendicitis in a female is an MRI as there is no radiation exposure. This testing is not available in our facility on weekends. CT would also be an option, however there is significant radiation exposure with this. The other option would be for the patient to monitor symptoms as this could simply be a gastroenteritis as the work-up that has been completed has been unrevealing of any signs of infection.. Discussed these options with the patient. She states that she does not want to do the CT unless absolutely necessary. She is going to call and speak with her fiance and will then notify us of her decision. Patient does verbalize that she feels much better after the Zofran and IV fluids. 01/27/20 15:31 Patient notified the provider that she would like to continue to monitor the symptoms and not proceed with a CT or MRI at this time. Discussed with her that if she should experience worsening abdominal pain, fever, chills, or intractable vomiting, we would recommend that she return to the emergency department for further evaluation. She verbalized understanding of these instructions. Discharge instructions as documented. Departure - Departure Time of Disposition: 15:32 Disposition: Home, Self-Care 01 Condition: Fair Clinical Impression: Abdominal pain Qualifiers: Abdominal location: lower abdomen, unspecified Qualified Code(s): R10.30 - Lower abdominal pain, unspecified - Discharge Information *PRESCRIPTION DRUG MONITORING PROGRAM REVIEWED*: No *COPY OF PRESCRIPTION DRUG MONITORING REPORT IN PATIENT SHARAD: No Instructions: Abdominal Pain, Adult, [id number] Referrals: Carmen Tee MD [Primary Care Provider] - Forms: ED Department Discharge, ED Return to Work/School Form Additional Instructions: You were seen in the emergency department today for right-sided abdominal pain and vomiting that started this morning. Your work-up included blood work, urinalysis, and an ultrasound of your abdomen. Your work-up was found to be normal. There was no signs of infection in your blood work or urinalysis. Unfortunately, the ultrasound was unable to visualize the appendix, so we cannot rule out appendicitis 100%. The option was given to either complete a CT scan which is not recommended due to the high radiation exposure. The other option was for you to go to [place] for a possible MRI of your abdomen. You have decided at this time to continue to monitor your symptoms. I would recommend that you return to the emergency department if you experience worsening abdominal pain, fever, chills, or intractable vomiting. If you should experience any other new or worsening symptoms of concern, please do not hesitate to return to the emergency department. Sepsis Event Note - Evaluation Sepsis Screening Result: No Definite Risk - Focused Exam Vital Signs: Vital Signs Temp Pulse Resp BP Pulse Ox 01/27/20 13:30 98.1 F 87 16 110/61 98 Date Exam was Performed: 01/27/20 Time Exam was Performed: 15:57 - My Orders Last 24 Hours: My Active Orders 01/27/20 13:47 Peripheral IV Insertion Adult [OM.PC] Stat 01/27/20 13:48 Peripheral IV Care [RC] . DIRECTED Sodium Chloride 0.9% [Saline Flush] 10 ml FLUSH ASDIRECTED PRN 01/27/20 14:00 Sodium Chloride 0.9% [Normal Saline] 1,000 ml IV ASDIRECTED - Assessment/Plan Last 24 Hours: My Active Orders 01/27/20 13:47 Peripheral IV Insertion Adult [OM.PC] Stat 01/27/20 13:48 Peripheral IV Care [RC] . DIRECTED Sodium Chloride 0.9% [Saline Flush] 10 ml FLUSH ASDIRECTED PRN 01/27/20 14:00 Sodium Chloride 0.9% [Normal Saline] 1,000 ml IV ASDIRECTED
[2020-01-27] MEDS ORDERED: Sodium Chloride 0.9% 1,000 ML IV SCH (14:00)
--- NOTE | 2020-01-27 15:07 | US ---
Limited abdominal ultrasound: Multiple real-time images of the right lower abdomen were obtained. Appendix is not visualized with certainty. No free fluid is seen. Right ovary appears normal without cyst. Right ovary is normal in size measuring 2.4 x 0.6 x 1.8 cm. Visualized portions of the right kidney show no hydronephrosis. Impression: 1. Nonvisualized appendix with no free fluid being seen. 2. Other normal findings as noted above. Diagnostic code #1 Study was dictated in MDT
== END 2020-01-27 16:08 | disposition home or self-care (01) ==
LOC: JD.ED 13:20
DX: O99.89 Other specified diseases and conditions complicating pregnancy, childbirth and the puerperium (principal); R10.31 Right lower quadrant pain; Z3A.16 16 weeks gestation of pregnancy; Z88.5 Allergy status to narcotic agent; Z88.0 Allergy status to penicillin; Z88.8 Allergy status to other drugs, medicaments and biological substances; Z79.899 Other long term (current) drug therapy
CPT/HCPCS: 36415; 76705; 80053; 81001; 85025; 86140; 96361; 96374; 99284; J2405; J7030

== ENCOUNTER 2020-04-25 10:13 | Emergency (ER) | payer MEDICAID ==
[2020-04-25] MEDS ORDERED: Sodium Chloride 0.9% 1,000 ML IV ONE (11:08)
[2020-04-25] MEDS ORDERED: diphenhydrAMINE 50 MG/ML SDV IVPUSH ONE (11:08)
[2020-04-25] MEDS ORDERED: Acetaminophen 325 MG Tab PO ONE (11:08)
[2020-04-25] MEDS ORDERED: Metoclopramide 10 MG/2 ML SDV IVPUSH ONE (11:08)
--- NOTE | 2020-04-25 11:16 | EDM.PDOC ---
ED HPI GENERAL MEDICAL PROBLEM - General Chief Complaint: Chest Pain Stated Complaint: 28 WEEKS PREG AND SOB Time Seen by Provider: 04/25/20 10:54 Source of Information: Reports: Patient, RN Notes Reviewed History Limitations: Reports: No Limitations - History of Present Illness INITIAL COMMENTS - FREE TEXT/NARRATIVE: Patient is a 24-year-old female who presents to the ED for the evaluation of her shortness of breath/central chest pain. 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 She states that everything is going well with the , but has had increased morning sickness over the last week with resultant nausea. Patient states that these other symptoms started last night, she began to feel "dizzy", had some increasing shortness of breath, where she states she just cannot catch a real deep breath, and chest pain that is in the center of her chest. She also is complaining of a migraine that started last night when the other symptoms started as well. Patient does state that she has a history of asthma, she did try to take her inhaler last night and this morning, along with some Tylenol last night and this did seem to help a little bit. Patient states that the pain does not radiate anywhere, and walking seems to make it worse. Patient denies any other sick-like symptoms, fever/chills, cough. Chest Pain Score (Numeric/FACES): 6 - Related Data Allergies Allergy/AdvReac Type Severity Reaction Status Date / Time codeine Allergy Other Verified 04/25/20 10:31 diazepam [From Valium] Allergy Other Verified 04/25/20 10:31 ethinyl estradiol Allergy Rash Verified 04/25/20 10:31 [From Xulane] norelgestromin [From Xulane] Allergy Rash Verified 04/25/20 10:31 Penicillins Allergy Other Verified 04/25/20 10:31 Home Meds: Home Meds Acetaminophen [Tylenol Extra Strength] 1,000 mg PO Q12HR PRN 03/28/20 [History] Albuterol [Ventolin HFA] 2 puff INH Q6HR PRN 03/28/20 [History] Cyclobenzaprine [Flexeril] 5 - 10 mg PO Q6HR PRN 03/28/20 [History] Pnv No.95/Ferrous Fum/Folic AC [ Vitamin Tablet] 1 each PO DAILY [History] lamoTRIgine [Lamictal] 75 mg PO DAILY 03/28/20 [History] Past Medical History HEENT History: Reports: Impaired Vision Other HEENT History: wears eyeglasses. Respiratory History: Reports: Asthma Gastrointestinal History: Reports: GERD LEATHER GRADER History: Reports: , Other (See Below) Other LEATHER GRADER History: chronic pelvic pain Neurological History: Reports: Migraines Psychiatric History: Reports: Anxiety, Bipolar - Infectious Disease History Infectious Disease History: Reports: Chicken Pox - Past Surgical History HEENT Surgical History: Reports: Oral Surgery GI Surgical History: Reports: EGD, Other (See Below) Other GI Surgeries/Procedures: exploratory lap Social & Family History - Family History Family Medical History: Noncontributory - Tobacco Use Smoking Status *Q: Never Smoker Second Hand Smoke Exposure: No - Caffeine Use Caffeine Use: Reports: Coffee, Energy Drinks - Recreational Drug Use Recreational Drug Use: Yes Drug Use in Last 12 Months: Yes Recreational Drug Type: Reports: Marijuana/Hashish - Living Situation & Occupation Living situation: Reports: Single, with Family Occupation: Employed ED ROS GENERAL - Review of Systems Review Of Systems: See Below Constitutional: Denies: Fever, Chills Respiratory: Reports: Shortness of Breath. Denies: Wheezing, Cough Cardiovascular: Reports: Chest Pain (central lower chest pain), Lightheadedness GI/Abdominal: Reports: Nausea. Denies: Abdominal Pain, Constipation, Diarrhea, Vomiting Neurological: Reports: Dizziness, Headache ED EXAM, GENERAL - Physical Exam Exam: See Below Exam Limited By: No Limitations General Appearance: Alert, WD/WN, No Apparent Distress Eye Exam: Bilateral Eye: EOMI, Normal Inspection, PERRL Throat/Mouth: Normal Inspection, Normal Lips, Normal Teeth, Normal Gums, Normal Oropharynx, Normal Voice, No Airway Compromise Head: Atraumatic, Normocephalic Neck: Normal Inspection Respiratory/Chest: No Respiratory Distress, Lungs Clear, Normal Breath Sounds, No Accessory Muscle Use, Other (chest is tender to palpation on lower border of anterior right chest) Cardiovascular: Normal Peripheral Pulses, Regular Rate, Rhythm, No Edema, No JVD , No Murmur Peripheral Pulses: 3+: Radial (L), Radial (R) GI/Abdominal: Normal Bowel Sounds, Soft, Non-Tender, No Distention, No Mass (Female) Exam: Other (RN did do heart tones, and reported these to be within normal limits at 140 bpm. She notes that the fetus was very active.) Extremities: Normal Inspection, Normal Capillary Refill Neurological: Alert, Oriented, Normal Cognition, No Motor/Sensory Deficits Psychiatric: Normal Affect, Normal Mood, Anxious (pt is breathing heavy, O2 sats are 100% on RA) Skin Exam: Warm, Dry, Intact, Normal Color, No Rash EKG INTERPRETATION EKG Date: 04/25/20 Time: 10:41 Rhythm: NSR Rate (Beats/Min): 93 [place]: Normal P-Wave: Present QRS: Normal ST-T: Normal QT: Normal Comparison: NA - No Prior EKG EKG Interpretation Comments: No obvious ischemia or acute ST changes noted, reviewed by myself and Dr. Gay. Course - Vital Signs Last Recorded V/S: Last Vital Signs Temp 97.5 F 04/25/20 12:50 Pulse 84 04/25/20 12:50 Resp 16 04/25/20 12:50 BP 90/53 L 04/25/20 12:50 Pulse Ox 99 04/25/20 12:50 - Orders/Labs/Meds Orders: Active Orders 24 hr Category Date Time Status EKG Documentation Completion [RC] STAT Care 04/25/20 11:07 Active Labs: Laboratory Tests 04/25/20 04/25/20 Range/Units 10:46 10:46 WBC 11.13 H (3.98-10.04) K/mm3 RBC 3.75 L (3.98-5.22) M/mm3 Hgb 11.0 L (11.2-15.7) gm/dl Hct 34.3 (34.1-44.9) % MCV 91.5 (79.4-94.8) fl MCH 29.3 (25.6-32.2) pg MCHC 32.1 L (32.2-35.5) g/dl RDW Std Deviation 43.3 (36.4-46.3) fL Plt Count 340 (182-369) K/mm3 MPV 9.8 (9.4-12.3) fl Neut % (Auto) 73.6 H (34.0-71.1) % Lymph % (Auto) 17.3 L (19.3-51.7) % [place] % (Auto) 8.0 (4.7-12.5) % Eos % (Auto) 0.5 L (0.7-5.8) Baso % (Auto) 0.2 (0.1-1.2) % Neut # (Auto) 8.19 H (1.56-6.13) K/mm3 Lymph # (Auto) 1.93 (1.18-3.74) K/mm3 [place] # (Auto) 0.89 H (0.24-0.36) K/mm3 Eos # (Auto) 0.06 (0.04-0.36) K/mm3 Baso # (Auto) 0.02 (0.01-0.08) K/mm3 Manual Slide Review Normal smear Sodium 139 (136-145) mEq/L Potassium 3.5 (3.5-5.1) mEq/L Chloride 105 (98-107) mEq/L Carbon Dioxide 26 (21-32) mEq/L Anion Gap 11.5 (5-15) BUN 5 L (7-18) mg/dL Creatinine 0.5 L (0.55-1.02) mg/dL Est Cr Clr Drug Dosing 139.58 mL/min Estimated GFR (MDRD) > 60 (>60) mL/min BUN/Creatinine Ratio 10.0 L (14-18) Glucose 74 (74-106) mg/dL Calcium 8.8 (8.5-10.1) mg/dL Total Bilirubin 0.3 (0.2-1.0) mg/dL AST 13 L (15-37) U/L ALT 8 L (14-59) U/L Alkaline Phosphatase 113 (46-116) U/L Troponin I < 0.017 (0.00-0.056) ng/mL Total Protein 6.5 (6.4-8.2) g/dl Albumin 2.6 L (3.4-5.0) g/dl Globulin 3.9 gm/dL Albumin/Globulin Ratio 0.7 L (1-2) Meds: Medications Discontinued Medications Generic Name Dose Route Start Last Admin Trade Name Freq PRN Reason Stop Dose Admin Acetaminophen 650 mg 04/25/20 11:08 04/25/20 11:41 Tylenol PO 04/25/20 11:09 650 mg NOW ONE Administration Diphenhydramine HCl 25 mg 06/12/20 11:08 04/25/20 11:39 Benadryl IVPUSH 04/25/20 11:09 25 mg ONETIME ONE Administration Sodium Chloride 1,000 mls @ 999 mls/hr 04/25/20 11:08 04/25/20 11:42 Normal Saline IV 04/25/20 12:08 999 mls/hr ONETIME ONE Administration Metoclopramide HCl 10 mg 04/25/20 11:08 04/25/20 11:37 Reglan IVPUSH 04/25/20 11:09 10 mg ONETIME ONE Administration - Re-Assessments/Exams Free Text/Narrative Re-Assessment/Exam: 04/25/20 11:18 Patient presents to the ED for evaluation of her mid central chest pain/ shortness of breath. I do believe this is more anxiety related, but have ordered some basic labs EKG and some medications to help with her headache and other symptoms. 04/25/20 12:00 Patient was reassessed at bedside, states she is feeling better with the combination of medications. Laboratory evaluation demonstrates no focal abnormalities. Again I do suspect this highly to be anxiety in nature, patient does not want any sort of medication like Ativan, due to her sister having a adverse reaction at one point in her life. She believes that she has nausea meds from her LE[facility]ER provider. After the patient's fluids have been given she will be discharged home with general recommendations. Departure - Departure Time of Disposition: 12:01 Disposition: Home, Self-Care 01 Condition: Good Clinical Impression: Anxiety Headache Qualifiers: Headache type: tension-type Headache chronicity pattern: chronic headache Intractability: not intractable Qualified Code(s): G44.229 - Chronic tension- type headache, not intractable Instructions: Migraine Headache, [id number], Living With Anxiety Referrals: Carmen Tee MD [Primary Care Provider] - Forms: ED Department Discharge Additional Instructions: You were evaluated in the ER today for your chest pain and shortness of breath. You were given some IV fluids, IV medications, that seemed to relieve your headache and nausea. Laboratory evaluation and EKG were within normal limits at today's visit. It is likely that you are suffering from some mild anxiety. Recommend you go home, rest and try to decrease the amount of stress in her life to see if this does not also seem to help. Please return to the ER at any time if symptoms change or worsen. Sepsis Event Note (ED) - Evaluation Sepsis Screening Result: No Definite Risk - Focused Exam Vital Signs: Vital Signs Temp Pulse Resp BP Pulse Ox 04/25/20 12:50 97.5 F 84 16 90/53 L 99 04/25/20 10:28 98.0 F 85 18 119/66 99 - My Orders Last 24 Hours: My Active Orders 04/25/20 11:07 EKG Documentation Completion [RC] STAT - Assessment/Plan Last 24 Hours: My Active Orders 04/25/20 11:07 EKG Documentation Completion [RC] STAT
== END 2020-04-25 12:50 | disposition home or self-care (01) ==
LOC: JD.ED 10:13
DX: O99.352 Diseases of the nervous system complicating pregnancy, second trimester (principal); G44.229 Chronic tension-type headache, not intractable; O99.342 Other mental disorders complicating pregnancy, second trimester; F41.9 Anxiety disorder, unspecified; F31.9 Bipolar disorder, unspecified; O99.512 Diseases of the respiratory system complicating pregnancy, second trimester; J45.909 Unspecified asthma, uncomplicated; O99.89 Other specified diseases and conditions complicating pregnancy, childbirth and the puerperium; R42 Dizziness and giddiness; Z88.5 Allergy status to narcotic agent; Z88.8 Allergy status to other drugs, medicaments and biological substances; Z88.0 Allergy status to penicillin; Z79.899 Other long term (current) drug therapy; Z3A.28 28 weeks gestation of pregnancy
CPT/HCPCS: 36415; 80053; 84484; 85025; 93005; 96361; 96374; 96375; 99285; A9270; J1200; J2765; J7030; 93010; 99284

== ENCOUNTER 2020-07-06 22:02 | Inpatient (IN) | payer MEDICAID ==
[2020-07-06] MEDS ORDERED: Calcium Carbonate 500 MG Tab.Chew PO PRN (22:13)
[2020-07-06] MEDS ORDERED: Sodium Chloride 0.9% 10 ML Syringe FLUSH PRN (22:13)
[2020-07-06] MEDS ORDERED: Lidocaine 1% 50 ML MDV INJECT ONE (22:13)
[2020-07-06] MEDS ORDERED: Ondansetron 4 MG/2 ML SDV IVPUSH PRN (22:13)
[2020-07-06] MEDS ORDERED: Acetaminophen 325 MG Tab PO PRN (22:13)
[2020-07-06] MEDS ORDERED: Nalbuphine 10 MG/ML Syringe IVPUSH PRN (22:13)
[2020-07-06] MEDS ORDERED: Oxytocin/Lactated Ringers 10 UNIT/1,000 ML BAG IV SCH ×2 (22:15)
[2020-07-06] MEDS: Lactated Ringers 1,000 ML IV SCH (23:10)
--- NOTE | 2020-07-06 23:17 | PCM.LDHP ---
L&D History of Present Illness - General Date of Service: 07/06/20 Admit Problem/Dx: Patient Status Order with Admit Dx/Problem 07/06/20 22:13 Patient Status [ADT] Routine Admission Diagnosis/Problem Admission Diagnosis/Problem Spontaneous rupture of membranes Source of Information: Patient History Limitations: Reports: No Limitations - History of Present Illness Introduction:: Johnathon Jeffrey is a 24 year old female at 38 weeks 5 days (OSWALDO 07/15/2020) by LMP consistent with an 8-week ultrasound who presents with spontaneous rupture membranes. She reports that she had a large gush of clear fluid at around 10 PM and has continued leaking of fluid since then. She states that she has not really been feeling any contractions but has been having some pelvic pressure with intermittent possible contractions. She reports good movement. Timing/Duration: Reports: sudden onset (With large gush of clear fluid at 10 PM) Location, : Reports: Lower back, Pelvic Quality: Reports: Pressure, Throbbing Severity: Severe Improves with: Reports: None Worsens with: Reports: None Associated Symptoms: Reports: vaginal fluid, large amount. Denies: vaginal bleeding, vaginal discharge Present Illness Comments:: Johnathon Jeffrey is a 24 year old female at 38 weeks 5 days (OSWALDO 07/15/2020) by LMP consistent with an 8-week ultrasound who presents with spontaneous rupture of membranes. She has had routine care with Dr. Tee starting at 7 weeks gestational age. She denies any significant complications during this . She received Tdap vaccine on 05/01/2020. Her is complicated by: * Multiple mental disorders including bipolar disorder, anxiety, depression, PTSD and is currently treated with lamotrigine * Asthma with rare rescue inhaler use. Reports that she used her rescue inhaler several times throughout the * History of marijuana use * Obesity with BMI of greater than 30 * History of chronic pelvic pain of unknown cause [employer] history -0-1-0 G1: 2014, SAB in early G2: Current labs Blood type: O+ Antibody screen: Negative First trimester hematocrit/hemoglobin: 38.7%/12.7 on 12/27/2019 Platelets: 297 on 12/27/2019 Rubella status: Immune Hepatitis B surface antigen: Negative RPR: Negative HIV: Negative Gonorrhea: Negative Chlamydia: Negative One hour glucose tolerance test: 73 Second trimester hemoglobin: 10.9 on 04/03/2020 Platelets: 336 on 04/03/2020 GBS status: Negative - Related Data Allergies/Adverse Reactions: Allergies Allergy/AdvReac Type Severity Reaction Status Date / Time codeine Allergy Other Verified 06/07/20 20:44 diazepam [From Valium] Allergy Other Verified 06/07/20 20:44 ethinyl estradiol Allergy Rash Verified 06/07/20 20:44 [From Xulane] norelgestromin [From Xulane] Allergy Rash Verified 06/07/20 20:44 Penicillins Allergy Other Verified 06/07/20 20:44 Home Medications: Home Meds Acetaminophen [Tylenol Extra Strength] 1,000 mg PO Q12HR PRN 03/28/20 [History] Albuterol [Ventolin HFA] 2 puff INH Q6HR PRN 03/28/20 [History] Cyclobenzaprine [Flexeril] 5 - 10 mg PO Q6HR PRN 03/28/20 [History] Pnv No.95/Ferrous Fum/Folic AC [ Vitamin Tablet] 1 each PO DAILY 03/28/20 [History] lamoTRIgine [Lamictal] 75 mg PO DAILY 03/28/20 [History] Past Medical History HEENT History: Reports: Impaired Vision Other HEENT History: wears eyeglasses. 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 History: Reports: , Other (See Below) : 2 Para: 0 Other OB/BYN History: chronic pelvic pain Musculoskeletal History: Reports: None Neurological History: Reports: Migraines Psychiatric History: Reports: Anxiety, Bipolar, Depression, Eating Disorders (Bulimia) Endocrine/Metabolic History: Reports: None Hematologic History: Reports: None Immunologic History: Reports: None Oncologic (Cancer) History: Reports: None Dermatologic History: Reports: None - Infectious Disease History Infectious Disease History: Reports: Chicken Pox - Past Surgical History HEENT Surgical History: Reports: Oral Surgery GI Surgical History: Reports: EGD, Other (See Below) Other GI Surgeries/Procedures: Diagnostic laparoscopy Social & Family History - Family History Family Medical History: Noncontributory - Tobacco Use Smoking Status *Q: Never Smoker Tobacco Use Within Last Twelve Months: No - Tobacco Core Measures Tobacco Use/Smoking Within Last 30 Days: No Smokeless Tobacco Use in Last 30 Days: No - Caffeine Use Caffeine Use: Reports: Coffee, Energy Drinks - Alcohol Use Alcohol Use History: No - Recreational Drug Use Recreational Drug Use: Yes Recreational Drug Type: Reports: Marijuana/Hashish - Living Situation & Occupation Living situation: Reports: Single, with Family Occupation: Employed H&P Review of Systems - Review of Systems: Review Of Systems: See Below General: Denies: Fever, Chills, Malaise, Weakness, Fatigue HEENT: Reports: Glasses, Headaches. Denies: Hearing Changes, Rhinitis, Sinus Congestion, Sore Throat, Visual Changes Pulmonary: Denies: Shortness of Breath, Wheezing, Pleuritic Chest Pain, Cough Cardiovascular: Denies: Chest Pain, Palpitations, Dyspnea on Exertion Gastrointestinal: Reports: Abdominal Pain, Diarrhea (For the last 1 to 2 days), Nausea. Denies: Constipation, Vomiting Genitourinary: Denies: Dysuria, Frequency, Burning, Pain, Urgency Musculoskeletal: Reports: Back Pain (Hip and pelvic pain of ) Skin: Denies: Rash, Lesions Psychiatric: Denies: Depression, Anxiety L&D Exam - Exam Exam: See Below - OB Specific Contraction Duration (sec): 60-75 Contraction Frequency (min): 3-6 Contraction Intensity: Mild Movement: Active Heart Tones: Present Heart Tones per Min: 120 (+15 x 15 accelerations, no decelerations) Heart Rate (FHR) Variability: Moderate (6-25 bmp) Presentation: Vertex Estimated Weight: 7.5-8 pounds by Ethan - Candelario Score Candelario Score Cervix Position: Posterior Candelario Score Consistency: Soft Candelario Score Effacement: 51-70% (75%) Candelario Score Dilation: 1-2 cm Candelario Score 's Station: -2 Candelario Score Total: 6 - Exam General: Alert, Oriented HEENT: Conjunctiva Clear, EOMI Neck: Supple, Trachea Midline Lungs: Clear to Auscultation, Normal Respiratory Effort Cardiovascular: Regular Rate, Regular Rhythm GI/Abdominal Exam: Soft, No Distention, Tender (Mild, diffuse with palpation), Other (Gravid). No: Guarding, Rigid, Rebound Skin: Warm, Dry, Intact Psychiatric: Alert, Normal Affect, Normal Mood - Patient Data Lab Results Last 24 hrs: Laboratory Results - last 24 hr 07/06/20 Range/Units 22:30 WBC 11.64 H (3.98-10.04) K/mm3 RBC 3.60 L (3.98-5.22) M/mm3 Hgb 10.3 L (11.2-15.7) gm/dl Hct 32.9 L (34.1-44.9) % MCV 91.4 (79.4-94.8) fl MCH 28.6 (25.6-32.2) pg MCHC 31.3 L (32.2-35.5) g/dl RDW Std Deviation 45.3 (36.4-46.3) fL Plt Count 346 (182-369) K/mm3 MPV 9.7 (9.4-12.3) fl Neut % (Auto) 72.2 H (34.0-71.1) % Lymph % (Auto) 18.4 L (19.3-51.7) % [place] % (Auto) 8.1 (4.7-12.5) % Eos % (Auto) 0.4 L (0.7-5.8) Baso % (Auto) 0.2 (0.1-1.2) % Neut # (Auto) 8.41 H (1.56-6.13) K/mm3 Lymph # (Auto) 2.14 (1.18-3.74) K/mm3 [place] # (Auto) 0.94 H (0.24-0.36) K/mm3 Eos # (Auto) 0.05 (0.04-0.36) K/mm3 Baso # (Auto) 0.02 (0.01-0.08) K/mm3 Result Diagrams: 07/06/20 22:30 - Problem List (1) 38 weeks gestation of SNOMED Code(s): 15910007 ICD Code: Z3A.38 - 38 WEEKS GESTATION OF Status: Acute Current Visit: Yes (2) Bipolar disease, chronic SNOMED Code(s): 20400990 ICD Code: F31.9 - BIPOLAR DISORDER, UNSPECIFIED Status: Acute Current Visit: Yes (3) Obesity SNOMED Code(s): 925201281, 057626870 ICD Code: E66.9 - OBESITY, UNSPECIFIED Status: Acute Current Visit: Yes (4) Acid reflux SNOMED Code(s): 790631624 ICD Code: K21.9 - GASTRO-ESOPHAGEAL REFLUX DISEASE WITHOUT ESOPHAGITIS Status: Acute Current Visit: No Qualifiers: Esophagitis presence: with esophagitis Qualified Code(s): K21.0 - Gastro- esophageal reflux disease with esophagitis (5) Anxiety SNOMED Code(s): 64029334 ICD Code: F41.9 - ANXIETY DISORDER, UNSPECIFIED Status: Acute Current Visit: No (6) Chronic pelvic pain in female SNOMED Code(s): 939306273 ICD Code: R10.2 - PELVIC AND PERINEAL PAIN; G89.29 - OTHER CHRONIC PAIN Status: Acute Current Visit: No Problem List Initiated/Reviewed/Updated: Yes Orders Last 24hrs: Active Orders 24 hr Category Date Time Status Patient Status [ADT] Routine ADT 07/06/20 22:13 Active Activity as Tolerated [RC] PFP Care 07/06/20 22:13 Active Communication Order [RC] ASDIRECTED Care 07/06/20 22:13 Active Heart Tones [RC] ASDIRECTED Care 07/06/20 22:14 Active Non Stress Test [RC] PER UNIT ROUTINE Care 07/06/20 22:13 Active Notify Provider [RC] PFP Care 07/06/20 22:13 Active Notify Provider [RC] PRN Care 07/06/20 22:13 Active Peripheral IV Care [RC] . DIRECTED Care 07/06/20 22:14 Active Pump Management, Intrathecal [RC] ASDIRECTED Care 07/06/20 22:17 Active Urinary Catheter Assessment [RC] ASDIRECTED Care 07/06/20 22:13 Active Vital Signs [RC] PER UNIT ROUTINE Care 07/06/20 22:13 Active Regular Diet [DIET] Diet 07/06/20 Breakfast Active CORONAVIRUS COVID-19 RAPID [MOLEC] Stat Lab 07/06/20 22:13 Ordered DRUG SCREEN, URINE [URCHEM] Stat Lab 07/06/20 22:13 Ordered RAPID PLASMA REAGIN,RPR [CHEM] Stat Lab 07/06/20 22:30 Received TYPE AND SCREEN [BBK] Stat Lab 07/06/20 22:30 Received UA W/MICROSCOPIC [URIN] Stat Lab 07/06/20 22:13 Ordered Acetaminophen [TylenoL] Med 07/06/20 22:13 Active 650 mg PO Q4H PRN Calcium Carbonate [Tums] Med 07/06/20 22:13 Active 1,000 mg PO Q2H PRN Lactated Ringers [Ringers, Lactated] 1,000 ml Med 07/06/20 22:15 Active IV ASDIRECTED Nalbuphine [Nubain] Med 07/06/20 22:13 Active 10 mg IVPUSH Q2H PRN Ondansetron [Zofran] Med 07/06/20 22:13 Active 4 mg IVPUSH Q4H PRN Oxytocin/Lactated Ringers [Pitocin in LR 10 Units/1,000 Med 07/06/20 22:15 Active ML] 10 unit in 1,000 ml IV .CONTINUOUS Oxytocin/Lactated Ringers [Pitocin in LR 10 Units/1,000 Med 07/06/20 22:15 Active ML] 10 unit in 1,000 ml IV TITRATE Sodium Chloride 0.9% [Saline Flush] Med 07/06/20 22:13 Active 10 ml FLUSH ASDIRECTED PRN Electronic Heart Tones Ext w TOCO [WOMSER] Oth 07/06/20 22:13 Ordered Routine Electronic Heart Tones Internal [WOMSER] Per Unit Oth 07/06/20 22:13 Ordered Routine Peripheral IV Insertion Adult [OM.PC] Routine Oth 07/06/20 22:13 Ordered Resuscitation Status Routine Resus Stat 07/06/20 22:13 Ordered Medication Orders Acetaminophen (Tylenol) 650 mg PO Q4H PRN PRN Reason: Pain (Mild 1-3) and fever Calcium Carbonate/Glycine (Tums) 1,000 mg PO Q2H PRN PRN Reason: Indigestion Oxytocin/Lactated Ringer's (Pitocin In Lr 10 Units/1,000 Ml) 10 unit in 1,000 mls @ 12 mls/hr IV TITRATE RADHA; Protocol Oxytocin/Lactated Ringer's (Pitocin In Lr 10 Units/1,000 Ml) 10 unit in 1,000 mls @ 500 mls/hr IV .CONTINUOUS RADHA Lactated Ringer's (Ringers, Lactated) 1,000 mls @ 100 mls/hr IV ASDIRECTED RADHA Nalbuphine HCl (Nubain) 10 mg IVPUSH Q2H PRN PRN Reason: Pain Ondansetron HCl (Zofran) 4 mg IVPUSH Q4H PRN PRN Reason: Nausea/Vomiting Sodium Chloride (Saline Flush) 10 ml FLUSH ASDIRECTED PRN PRN Reason: Keep Vein Open Assessment/Plan Comment:: Johnathon Jeffrey is a 84-year-old -0-1-0 at 38 weeks 5 days (OSWALDO 07/15/2020) with spontaneous rupture membranes] Refer to observation for spontaneous rupture of membranes Start Pitocin for augmentation of labor given irregular contraction pattern that is very mild over the course of an hour after rupture membranes Continuous monitoring Place IV and have Lactated Ringer's at 125 ml/hr May have small amounts of regular diet Activity as tolerated May have epidural as desired Plans to breast-feed after delivery Anticipate vaginal delivery unless otherwise indicated Guido Garza MD 11:34 PM 07/06/2020
[2020-07-07] MEDS ORDERED: Bupivacaine 0.25% 10 ML SDV ONE
[2020-07-07] MEDS ORDERED: fentaNYL 100 MCG/2 ML SDV EPIDUR PRN (01:38)
[2020-07-07] MEDS ORDERED: Bupivacaine/fentaNYL/NS 100 ML Bag EPIDUR PRN (01:38)
[2020-07-07] MEDS ORDERED: diphenhydrAMINE 50 MG/ML SDV IVPUSH PRN (01:38)
[2020-07-07] MEDS ORDERED: ePHEDrine 50 MG/ML SDV IVPUSH PRN (01:38)
[2020-07-07] MEDS: Lactated Ringers 1,000 ML IV SCH ×3 (02:00→07:11)
--- NOTE | 2020-07-07 11:19 | PCM.DEL ---
L & D Note - General Info Date of Service: 07/07/20 Mother's Due Date: 07/15/20 - Delivery Note Labor: Spontaneous, Augmented by Oxytocin Delivery Outcome: Livebirth Infant Delivery Method: Spontaneous Vaginal Delivery-Single Presentation: Left Occiput Anterior (ALHAJI) Nuchal Cord: Present (And tight around the neck and unable to be reduced prior to delivery) Anesthesia Type: Epidural Amniotic Fluid Description: Clear Episiotomy Type: None Laceration: Labial (Bilateral labia minora lacerations that were hemostatic and patient declined to have them repaired) Placenta: Intact, Spontaneous Cord: 3 Vessels Estimated Blood Loss: 350 Resuscitation Needed: No [place]: Bulb Syringe, Cathether, Stimulated, Warmed, [place] Used Provider: Guido Garza Score 1 min: 8 Score 5 min: 9 Second Stage Interventions: Reports: Pushing Effectively, Pushing, Stirrups/Leg Supports Delivery Comments (Free Text/Narrative):: Stage I: Johnathon Jeffrey was admitted for spontaneous rupture membranes with return of clear fluid. On admission her cervix was dilated to 1 to 2 cm. She was GBS negative. She was started on Pitocin for augmentation of labor given her irregular contraction pattern that she had on arrival. She was given an epidural for anesthesia. She progressed to complete and pushing. While she was pushing she did have some heart rate decelerations down into the 50s to 6 0s with recovery and moderate variability afterwards. After approximately 20 minutes of pushing with these decelerations they recovered and did not occur significantly afterwards. Stage II: On 07/07/2020 she had a normal vaginal delivery of a live female infant at 10:45. Apgars of 8 & 9. Infant's weight and length were not available at time of note. There was a single nuchal cord that was tight around the neck and unable to be reduced. The was delivered through the nuchal cord.. was delivered in ALHAJI position. The cord was doubly clamped and cut by father the . Infant was placed on mother's abdomen. Stage III: She had a spontaneous delivery of an intact placenta in [place] presentation. Three vessel cord. She was given pitocin and fundal massage. She had bilateral labia minora lacerations that were hemostatic and she declined to have them repaired. Mom and baby were stable to recovery. EBL of 350 mL. Guido Garza MD 11:15 AM 07/07/2020 - General Info Date of Service: 07/07/20 - Patient Data Vitals - Most Recent: Last Vital Signs Temp 36.9 C 07/06/20 22:13 Pulse 77 07/06/20 22:13 Resp 16 07/06/20 22:13 BP 128/72 07/06/20 22:13 Pulse Ox 97 07/06/20 22:13 Weight - Most Recent: 87.543 kg Lab Results Last 24 Hours: Laboratory Results - last 24 hr 07/06/20 07/06/20 07/06/20 Range/Units 22:30 22:30 23:50 WBC 11.64 H (3.98-10.04) K/mm3 RBC 3.60 L (3.98-5.22) M/mm3 Hgb 10.3 L (11.2-15.7) gm/dl Hct 32.9 L (34.1-44.9) % MCV 91.4 (79.4-94.8) fl MCH 28.6 (25.6-32.2) pg MCHC 31.3 L (32.2-35.5) g/dl RDW Std Deviation 45.3 (36.4-46.3) fL Plt Count 346 (182-369) K/mm3 MPV 9.7 (9.4-12.3) fl Neut % (Auto) 72.2 H (34.0-71.1) % Lymph % (Auto) 18.4 L (19.3-51.7) % [place] % (Auto) 8.1 (4.7-12.5) % Eos % (Auto) 0.4 L (0.7-5.8) Baso % (Auto) 0.2 (0.1-1.2) % Neut # (Auto) 8.41 H (1.56-6.13) K/mm3 Lymph # (Auto) 2.14 (1.18-3.74) K/mm3 [place] # (Auto) 0.94 H (0.24-0.36) K/mm3 Eos # (Auto) 0.05 (0.04-0.36) K/mm3 Baso # (Auto) 0.02 (0.01-0.08) K/mm3 Urine Color Yellow (Yellow) Urine Appearance Clear (Clear) Urine pH 7.0 (5.0-8.0) Ur Specific [place] 1.015 (1.005-1.030) Urine Protein Trace H (Negative) Urine Glucose (UA) Negative (Negative) Urine Ketones Negative (Negative) Urine Occult Blood 3+ H (Negative) Urine Nitrite Negative (Negative) Urine Bilirubin Negative (Negative) Urine Urobilinogen 0.2 (0.2-1.0) Ur Leukocyte Esterase Trace H (Negative) Urine RBC 10-20 H (0-5) /hpf Urine WBC 0-5 (0-5) /hpf Ur Squamous Epith Cells 10-20 H (0-5) /hpf Urine Bacteria Not seen (FEW) /hpf Urine Mucus Not seen (FEW) /hpf Urine Opiates Screen (GJQNPC=964) Ur Buprenorphine Scrn (CUTOFF=10) Ur Oxycodone Screen (VKY9VY=273) Urine Methadone Screen (NJLEQJ=531) Ur Propoxyphene Screen (JBWQUZ=627) Ur Barbiturates Screen (OYUZBR=077) Ur Tricyclics Screen (BMONNE=997) Ur Phencyclidine Scrn (CUTOFF=25) Ur Amphetamine Screen (BKGBAQ=377) U Methamphetamines Scrn (WABAAW=625) U Benzodiazepines Scrn (PREDHR=032) U Cocaine Metab Screen (JLFDFO=141) U Marijuana (THC) Screen (CUTOFF=50) COVID-19 (ROC) (NEGATIVE) Blood Type O POSITIVE Gel Antibody Screen Negative 07/06/20 07/07/20 Range/Units 23:50 01:30 WBC (3.98-10.04) K/mm3 RBC (3.98-5.22) M/mm3 Hgb (11.2-15.7) gm/dl Hct (34.1-44.9) % MCV (79.4-94.8) fl MCH (25.6-32.2) pg MCHC (32.2-35.5) g/dl RDW Std Deviation (36.4-46.3) fL Plt Count (182-369) K/mm3 MPV (9.4-12.3) fl Neut % (Auto) (34.0-71.1) % Lymph % (Auto) (19.3-51.7) % [place] % (Auto) (4.7-12.5) % Eos % (Auto) (0.7-5.8) Baso % (Auto) (0.1-1.2) % Neut # (Auto) (1.56-6.13) K/mm3 Lymph # (Auto) (1.18-3.74) K/mm3 [place] # (Auto) (0.24-0.36) K/mm3 Eos # (Auto) (0.04-0.36) K/mm3 Baso # (Auto) (0.01-0.08) K/mm3 Urine Color (Yellow) Urine Appearance (Clear) Urine pH (5.0-8.0) Ur Specific [place] (1.005-1.030) Urine Protein (Negative) Urine Glucose (UA) (Negative) Urine Ketones (Negative) Urine Occult Blood (Negative) Urine Nitrite (Negative) Urine Bilirubin (Negative) Urine Urobilinogen (0.2-1.0) Ur Leukocyte Esterase (Negative) Urine RBC (0-5) /hpf Urine WBC (0-5) /hpf Ur Squamous Epith Cells (0-5) /hpf Urine Bacteria (FEW) /hpf Urine Mucus (FEW) /hpf Urine Opiates Screen Negative (JYYPHP=503) Ur Buprenorphine Scrn Negative (CUTOFF=10) Ur Oxycodone Screen Negative (JHF6HO=361) Urine Methadone Screen Negative (VHVQVZ=646) Ur Propoxyphene Screen Negative (QUEVKZ=239) Ur Barbiturates Screen Negative (CYVAPF=209) Ur Tricyclics Screen Negative (QDPCYE=118) Ur Phencyclidine Scrn Negative (CUTOFF=25) Ur Amphetamine Screen Negative (JTRSKG=709) U Methamphetamines Scrn Negative (RFNGXF=368) U Benzodiazepines Scrn Negative (PWUJAN=930) U Cocaine Metab Screen Negative (LBBDMW=074) U Marijuana (THC) Screen Negative (CUTOFF=50) COVID-19 (ROC) Negative (NEGATIVE) Blood Type Gel Antibody Screen Med Orders - Current: Current Medications Acetaminophen (Tylenol) 650 mg PO Q4H PRN PRN Reason: Pain (Mild 1-3) and fever Calcium Carbonate/Glycine (Tums) 1,000 mg PO Q2H PRN PRN Reason: Indigestion Diphenhydramine HCl (Benadryl) 25 mg IVPUSH Q6H PRN PRN Reason: pruritis Ephedrine Sulfate (Ephedrine Sulfate) 5 mg IVPUSH ASDIRECTED PRN PRN Reason: Hypotension Fentanyl (Sublimaze) 100 mcg EPIDUR Q3H PRN PRN Reason: Pain Last Admin: 07/07/20 01:56 Dose: 100 mcg Documented by: Fentanyl/Bupivacaine HCl (Fentanyl/Bupivacaine/Ns 2 Mcg-0.125% 100 Ml) 100 ml EPIDUR ASDIRECTED PRN PRN Reason: Pain Last Admin: 07/07/20 02:01 Dose: 100 ml Documented by: Oxytocin/Lactated Ringer's (Pitocin In Lr 10 Units/1,000 Ml) 10 unit in 1,000 mls @ 12 mls/hr IV TITRATE RADHA; Protocol Last Titration: 07/07/20 06:51 Dose: 0 munits/min, 0 mls/hr Documented by: Oxytocin/Lactated Ringer's (Pitocin In Lr 10 Units/1,000 Ml) 10 unit in 1,000 mls @ 500 mls/hr IV .CONTINUOUS RADHA Lactated Ringer's (Ringers, Lactated) 1,000 mls @ 100 mls/hr IV ASDIRECTED RADHA Last Admin: 07/07/20 07:11 Dose: 500 mls/hr Documented by: Nalbuphine HCl (Nubain) 10 mg IVPUSH Q2H PRN PRN Reason: Pain Ondansetron HCl (Zofran) 4 mg IVPUSH Q4H PRN PRN Reason: Nausea/Vomiting Last Admin: 07/07/20 00:18 Dose: 4 mg Documented by: Sodium Chloride (Saline Flush) 10 ml FLUSH ASDIRECTED PRN PRN Reason: Keep Vein Open Discontinued Medications Lidocaine HCl (Xylocaine 1%) 20 ml INJECT ONETIME ONE Stop: 07/06/20 22:14 - Problem List & Annotations (1) 38 weeks gestation of SNOMED Code(s): 94714894 Code(s): Z3A.38 - 38 WEEKS GESTATION OF Status: Acute Current Visit: Yes (2) Bipolar disease, chronic SNOMED Code(s): 08630982 Code(s): F31.9 - BIPOLAR DISORDER, UNSPECIFIED Status: Acute Current Visit: Yes (3) Obesity SNOMED Code(s): 151813911, 903584004 Code(s): E66.9 - OBESITY, UNSPECIFIED Status: Acute Current Visit: Yes (4) Acid reflux SNOMED Code(s): 823699152 Code(s): K21.9 - GASTRO-ESOPHAGEAL REFLUX DISEASE WITHOUT ESOPHAGITIS Status: Acute Current Visit: No Qualifiers: Esophagitis presence: with esophagitis Qualified Code(s): K21.0 - Gastro- esophageal reflux disease with esophagitis (5) Anxiety SNOMED Code(s): 15438608 Code(s): F41.9 - ANXIETY DISORDER, UNSPECIFIED Status: Acute Current Visit: No (6) Chronic pelvic pain in female SNOMED Code(s): 144050058 Code(s): R10.2 - PELVIC AND PERINEAL PAIN; G89.29 - OTHER CHRONIC PAIN Status: Acute Current Visit: No (7) Vaginal delivery SNOMED Code(s): 406178290 Code(s): O80 - ENCOUNTER FOR FULL-TERM UNCOMPLICATED DELIVERY Status: Acute Current Visit: Yes (8) Obstetric labial laceration, delivered, current hospitalization SNOMED Code(s): 971138119, 447162898, 944606587 Code(s): O70.0 - FIRST DEGREE PERINEAL LACERATION DURING DELIVERY Status: Acute Current Visit: Yes - Problem List Review Problem List Initiated/Reviewed/Updated: Yes - My Orders Last 24 Hours: My Active Orders 07/06/20 22:13 Patient Status [ADT] Routine Activity as Tolerated [RC] PFP Communication Order [RC] ASDIRECTED Notify Provider [RC] PFP Notify Provider [RC] PRN Urinary Catheter Assessment [RC] ASDIRECTED Acetaminophen [TylenoL] 650 mg PO Q4H PRN Calcium Carbonate [Tums] 1,000 mg PO Q2H PRN Nalbuphine [Nubain] 10 mg IVPUSH Q2H PRN Ondansetron [Zofran] 4 mg IVPUSH Q4H PRN Sodium Chloride 0.9% [Saline Flush] 10 ml FLUSH ASDIRECTED PRN Electronic Heart Tones Ext w TOCO [WOMSER] Routine Electronic Heart Tones Internal [WOMSER] Per Unit Routine Peripheral IV Insertion Adult [OM.PC] Routine Resuscitation Status Routine 07/06/20 22:14 Heart Tones [RC] ASDIRECTED 07/06/20 22:15 Lactated Ringers [Ringers, Lactated] 1,000 ml IV ASDIRECTED Oxytocin/Lactated Ringers [Pitocin in LR 10 Units/1,000 ML] 10 unit in 1,000 ml IV .CONTINUOUS Oxytocin/Lactated Ringers [Pitocin in LR 10 Units/1,000 ML] 10 unit in 1,000 ml IV TITRATE 07/06/20 22:17 Pump Management, Intrathecal [RC] ASDIRECTED 07/06/20 22:30 RAPID PLASMA REAGIN,RPR [CHEM] Stat 07/07/20 11:08 Patient Status Manage Transfer [TRANSFER] Routine - Plan Plan:: Johnathon Jeffrey is a 24-year-old -0-1-1 status post , PPD #0 Admit to inpatient following normal spontaneous vaginal delivery Continue Pitocin per unit protocol following delivery of placenta and lactated Ringer's until tolerating regular diet Regular diet Vitals per unit routine Ibuprofen and Tylenol for pain control Assist with breast-feeding as needed Continue to monitor lochia Anticipate discharge home on day #2 Guido Garza MD 11:15 AM 07/07/2020
[2020-07-07] MEDS ORDERED: Acetaminophen 325 MG Tab PO PRN (13:29)
[2020-07-07] MEDS ORDERED: Hydrocortisone Acetate 25 MG Supp RECTAL PRN (13:29)
[2020-07-07] MEDS ORDERED: Benzocaine/Menthol 20%-0.5% Spray 56 GM Canister TOP PRN (13:29)
[2020-07-07] MEDS ORDERED: Witch Hazel Medicated Pads 40/Jar TOP PRN (13:29)
[2020-07-07] MEDS ORDERED: Ibuprofen 600 MG Tab PO PRN (13:29)
[2020-07-07] MEDS ORDERED: Docusate Sodium 100 MG Cap PO PRN (13:29)
[2020-07-07] MEDS ORDERED: Oxytocin/Lactated Ringers 10 UNIT/1,000 ML BAG IV SCH (13:29)
[2020-07-07] MEDS ORDERED: Magnesium Hydroxide 400 MG/5 ML Susp 30 ML Cup PO PRN (13:29)
--- NOTE | 2020-07-08 08:35 | PCM48HPAN ---
Post Anesthesia Note - EVALUATION WITHIN 48HRS OF ANESTHETIC Vital Signs in Normal Range: Yes Patient Participated in Evaluation: Yes Respiratory Function Stable: Yes Airway Patent: Yes Cardiovascular Function Stable: Yes Hydration Status Stable: Yes Pain Control Satisfactory: Yes Nausea and Vomiting Control Satisfactory: Yes Mental Status Recovered: Yes Vital Signs: Last Vital Signs Temp 37.4 C 07/08/20 00:05 Pulse 73 07/08/20 00:05 Resp 14 07/08/20 00:05 BP 98/71 07/08/20 00:05 Pulse Ox 99 07/08/20 00:05
--- NOTE | 2020-07-08 09:07 | PCM.SN.2 ---
- Free Text/Narrative Note: Post Progress Note PPD #1 Subjective: Doing well overall. Ambulating without difficulty. Lochia minimal but slightly more than a normal menstrual cycle. Reports that she is changing a pad every several hours and it is not completely soaked at that time. Voiding without difficulty. Tolerating regular diet without nausea or vomiting. Pain controlled with oral medications. Breast-feeding with small amounts of formula supplementation with minimal difficulty. Objective: Vitals: Vital Signs - 24 hr 07/07/20 07/07/20 07/08/20 15:49 19:48 00:05 Temperature 37.1 C 37.5 C 37.4 C Pulse, 73 69 73 Peripheral Respiratory 14 16 14 Rate Blood Pressure 136/79 129/61 98/71 O2 Sat by Pulse 95 98 99 Oximetry 07/08/20 07/08/20 03:18 08:16 Temperature 37.2 C 36.4 C Pulse, 74 59 L Peripheral Respiratory 16 14 Rate Blood Pressure 113/74 128/96 H O2 Sat by Pulse 98 100 Oximetry Physical Exam General: Alert and oriented, no acute distress Lungs: Clear to auscultation bilaterally Heart: Regular rate and rhythm Abdomen: Soft, minimal appropriate tenderness, non-distended, fundus midline, nontender, and at the umbilicus Extremities: Trace edema in bilateral lower extremities to mid shins Laboratory Tests 07/06/20 07/06/20 07/06/20 Range/Units 22:30 22:30 22:30 WBC 11.64 H (3.98-10.04) K/mm3 RBC 3.60 L (3.98-5.22) M/mm3 Hgb 10.3 L (11.2-15.7) gm/dl Hct 32.9 L (34.1-44.9) % MCV 91.4 (79.4-94.8) fl MCH 28.6 (25.6-32.2) pg MCHC 31.3 L (32.2-35.5) g/dl RDW Std Deviation 45.3 (36.4-46.3) fL Plt Count 346 (182-369) K/mm3 MPV 9.7 (9.4-12.3) fl Neut % (Auto) 72.2 H (34.0-71.1) % Lymph % (Auto) 18.4 L (19.3-51.7) % [place] % (Auto) 8.1 (4.7-12.5) % Eos % (Auto) 0.4 L (0.7-5.8) Baso % (Auto) 0.2 (0.1-1.2) % Neut # (Auto) 8.41 H (1.56-6.13) K/mm3 Lymph # (Auto) 2.14 (1.18-3.74) K/mm3 [place] # (Auto) 0.94 H (0.24-0.36) K/mm3 Eos # (Auto) 0.05 (0.04-0.36) K/mm3 Baso # (Auto) 0.02 (0.01-0.08) K/mm3 Urine Color (Yellow) Urine Appearance (Clear) Urine pH (5.0-8.0) Ur Specific [place] (1.005-1.030) Urine Protein (Negative) Urine Glucose (UA) (Negative) Urine Ketones (Negative) Urine Occult Blood (Negative) Urine Nitrite (Negative) Urine Bilirubin (Negative) Urine Urobilinogen (0.2-1.0) Ur Leukocyte Esterase (Negative) Urine RBC (0-5) /hpf Urine WBC (0-5) /hpf Ur Squamous Epith Cells (0-5) /hpf Urine Bacteria (FEW) /hpf Urine Mucus (FEW) /hpf Urine Opiates Screen (PUAFUV=588) Ur Buprenorphine Scrn (CUTOFF=10) Ur Oxycodone Screen (NFW4OR=222) Urine Methadone Screen (OTQWEK=527) Ur Propoxyphene Screen (HWBPLN=042) Ur Barbiturates Screen (UDKOJC=387) Ur Tricyclics Screen (GSRNWX=638) Ur Phencyclidine Scrn (CUTOFF=25) Ur Amphetamine Screen (VJCMZG=450) U Methamphetamines Scrn (FDKPFU=215) U Benzodiazepines Scrn (NXMSQV=394) U Cocaine Metab Screen (PHBYIX=806) U Marijuana (THC) Screen (CUTOFF=50) RPR Non-reactive (NONREACTIVE) COVID-19 (ROC) (NEGATIVE) Blood Type O POSITIVE Gel Antibody Screen Negative 07/06/20 07/06/20 07/07/20 Range/Units 23:50 23:50 01:30 WBC (3.98-10.04) K/mm3 RBC (3.98-5.22) M/mm3 Hgb (11.2-15.7) gm/dl Hct (34.1-44.9) % MCV (79.4-94.8) fl MCH (25.6-32.2) pg MCHC (32.2-35.5) g/dl RDW Std Deviation (36.4-46.3) fL Plt Count (182-369) K/mm3 MPV (9.4-12.3) fl Neut % (Auto) (34.0-71.1) % Lymph % (Auto) (19.3-51.7) % [place] % (Auto) (4.7-12.5) % Eos % (Auto) (0.7-5.8) Baso % (Auto) (0.1-1.2) % Neut # (Auto) (1.56-6.13) K/mm3 Lymph # (Auto) (1.18-3.74) K/mm3 [place] # (Auto) (0.24-0.36) K/mm3 Eos # (Auto) (0.04-0.36) K/mm3 Baso # (Auto) (0.01-0.08) K/mm3 Urine Color Yellow (Yellow) Urine Appearance Clear (Clear) Urine pH 7.0 (5.0-8.0) Ur Specific [place] 1.015 (1.005-1.030) Urine Protein Trace H (Negative) Urine Glucose (UA) Negative (Negative) Urine Ketones Negative (Negative) Urine Occult Blood 3+ H (Negative) Urine Nitrite Negative (Negative) Urine Bilirubin Negative (Negative) Urine Urobilinogen 0.2 (0.2-1.0) Ur Leukocyte Esterase Trace H (Negative) Urine RBC 10-20 H (0-5) /hpf Urine WBC 0-5 (0-5) /hpf Ur Squamous Epith Cells 10-20 H (0-5) /hpf Urine Bacteria Not seen (FEW) /hpf Urine Mucus Not seen (FEW) /hpf Urine Opiates Screen Negative (TDGAZN=029) Ur Buprenorphine Scrn Negative (CUTOFF=10) Ur Oxycodone Screen Negative (JTY5UT=633) Urine Methadone Screen Negative (SXIAMI=270) Ur Propoxyphene Screen Negative (FQCEEU=227) Ur Barbiturates Screen Negative (JEJEJD=791) Ur Tricyclics Screen Negative (OOQGFB=951) Ur Phencyclidine Scrn Negative (CUTOFF=25) Ur Amphetamine Screen Negative (SHOUMO=450) U Methamphetamines Scrn Negative (ABGHTT=744) U Benzodiazepines Scrn Negative (HDTHIR=248) U Cocaine Metab Screen Negative (EZFCCF=741) U Marijuana (THC) Screen Negative (CUTOFF=50) RPR (NONREACTIVE) COVID-19 (ROC) Negative (NEGATIVE) Blood Type Gel Antibody Screen ASSESSMENT: 24-year-old female -0-1-1 s/p normal vaginal delivery PPD #1, complicated by multiple mental disorders including bipolar disorder, anxiety, depression PTSD, asthma, chronic pelvic pain and history of marijuana use PLAN: Doing well Breast-feeding with small amounts of formula supplementation with minimal difficulty. Assist as needed Lochia minimal. Continue to monitor for appropriate lochia. Continue routine care Continue lamotrigine for treatment of [place] disorder, anxiety, depression and PTSD Anticipate discharge home tomorrow Guido Garza MD 9:04 AM 07/08/2020
[2020-07-08] MEDS: Prenatal Multivitamin with Calcium/Folic Acid/Iron Tab PO SCH (09:31)
[2020-07-09] MEDS: Prenatal Multivitamin with Calcium/Folic Acid/Iron Tab PO SCH (08:59)
--- NOTE | 2020-07-09 09:29 | PCM.SN.2 ---
- Free Text/Narrative Note: Post Progress Note PPD #2 Subjective: Doing well overall. Ambulating without difficulty. Lochia minimal and decreasing from yesterday. Voiding without difficulty. Tolerating regular diet without nausea or vomiting. Pain controlled with oral medications. Breast- feeding and pumping breastmilk with minimal difficulty. Reports that she is using occasional formula supplementation when she is having increased amounts of pain in her breasts. Objective: Vitals: Vital Signs - 24 hr 07/08/20 07/08/20 07/09/20 15:16 21:00 03:00 Temperature 36.4 C Temperature [ 37.1 C 36.9 C Temporal] Pulse, 91 Peripheral Pulse, 56 L 87 Peripheral [ Pulse Oximetry] Respiratory 14 14 16 Rate Blood Pressure 128/84 Blood Pressure 142/79 H 130/78 [Upper Arm] O2 Sat by Pulse 98 97 98 Oximetry Physical Exam General: Alert and oriented, no acute distress Lungs: Clear to auscultation bilaterally Heart: Regular rate and rhythm Abdomen: Soft, minimal appropriate tenderness, non-distended, fundus midline, nontender, and 1 fingerbreadth below the umbilicus Extremities: Trace edema in bilateral lower extremities to mid shins ASSESSMENT: 24-year-old female -0-1-1 s/p normal vaginal delivery PPD #2, complicated by multiple mental disorders including bipolar disorder, anxiety, depression PTSD, asthma, chronic pelvic pain and history of marijuana use PLAN: Doing well Breast-feeding and pumping breastmilk with minimal difficulty. She is having occasional formula feeding for infant when she is having increased amounts of breast pain. Assist as needed Lochia minimal. Continue to monitor for appropriate lochia. Continue routine care Continue lamotrigine for treatment of bipolar disorder, anxiety, depression and PTSD EPDS of unit today, patient currently treated with lamotrigine for bipolar disorder. No thoughts of harm to self or . We will have early follow-up with her regular provider for visit. Discharge home today Guido Garza MD 9:23 AM 07/09/2020
--- NOTE | 2020-07-09 09:38 | PCM.DCSUM1 ---
Discharge Summary - Hospital Course Free Text/Narrative:: - General Info Date of Service: 07/07/20 Mother's Due Date: 07/15/20 - Delivery Note Labor: Spontaneous, Augmented by Oxytocin Delivery Outcome: Livebirth Infant Delivery Method: Spontaneous Vaginal Delivery-Single Presentation: Left Occiput Anterior (ALHAJI) Nuchal Cord: Present (And tight around the neck and unable to be reduced prior to delivery) Anesthesia Type: Epidural Amniotic Fluid Description: Clear Episiotomy Type: None Laceration: Labial (Bilateral labia minora lacerations that were hemostatic and patient declined to have them repaired) Placenta: Intact, Spontaneous Cord: 3 Vessels Estimated Blood Loss: 350 Resuscitation Needed: No : Bulb Syringe, Cathether, Stimulated, Warmed, Rupert Used Provider: Guido Garza Score 1 min: 8 Score 5 min: 9 Second Stage Interventions: Reports: Pushing Effectively, Pushing, Stirrups/Leg Supports Delivery Comments (Free Text/Narrative):: Stage I: oJhnathon Jeffrey was admitted for spontaneous rupture membranes with return of clear fluid. On admission her cervix was dilated to 1 to 2 cm. She was GBS negative. She was started on Pitocin for augmentation of labor given her irregular contraction pattern that she had on arrival. She was given an epidural for anesthesia. She progressed to complete and pushing. While she was pushing she did have some heart rate decelerations down into the 50s to 60s with recovery and moderate variability afterwards. After approximately 20 minutes of pushing with these decelerations they recovered and did not occur significantly afterwards. Stage II: On 07/07/2020 she had a normal vaginal delivery of a live female infant at 10:45. Apgars of 8 & 9. 's weight and length were not available at time of note. There was a single nuchal cord that was tight around the neck and unable to be reduced. The infant was delivered through the nuchal cord.. Infant was delivered in ALHAJI position. The cord was doubly clamped and cut by father the infant. Infant was placed on mother's abdomen. Stage III: She had a spontaneous delivery of an intact placenta in [place] presentation. Three vessel cord. She was given pitocin and fundal massage. She had bilateral labia minora lacerations that were hemostatic and she declined to have them repaired. Mom and baby were stable to recovery. EBL of 350 mL. HPI Initial Comments: - General Info Date of Service: 07/07/20 Mother's Due Date: 07/15/20 - Delivery Note Labor: Spontaneous, Augmented by Oxytocin Delivery Outcome: Livebirth Infant Delivery Method: Spontaneous Vaginal Delivery-Single Presentation: Left Occiput Anterior (ALHAJI) Nuchal Cord: Present (And tight around the neck and unable to be reduced prior to delivery) Anesthesia Type: Epidural Amniotic Fluid Description: Clear Episiotomy Type: None Laceration: Labial (Bilateral labia minora lacerations that were hemostatic and patient declined to have them repaired) Placenta: Intact, Spontaneous Cord: 3 Vessels Estimated Blood Loss: 350 Resuscitation Needed: No [place]: Bulb Syringe, Cathether, Stimulated, Warmed, Rupert Used Provider: Guido Garza Score 1 min: 8 Score 5 min: 9 Second Stage Interventions: Reports: Pushing Effectively, Pushing, Stirrups/Leg Supports Delivery Comments (Free Text/Narrative):: Stage I: Johnathon Jeffrey was admitted for spontaneous rupture membranes with return of clear fluid. On admission her cervix was dilated to 1 to 2 cm. She was GBS negative. She was started on Pitocin for augmentation of labor given her irregular contraction pattern that she had on arrival. She was given an epidural for anesthesia. She progressed to complete and pushing. While she was pushing she did have some heart rate decelerations down into the 50s to 60s with recovery and moderate variability afterwards. After approximately 20 minutes of pushing with these decelerations they recovered and did not occur significantly afterwards. Stage II: On 07/07/2020 she had a normal vaginal delivery of a live female infant at 10:45. Apgars of 8 & 9. 's weight and length were not available at time of note. There was a single nuchal cord that was tight around the neck and unable to be reduced. The infant was delivered through the nuchal cord.. was delivered in ALHAJI position. The cord was doubly clamped and cut by father the . was placed on mother's abdomen. Stage III: She had a spontaneous delivery of an intact placenta in [place] presentation. Three vessel cord. She was given pitocin and fundal massage. She had bilateral labia minora lacerations that were hemostatic and she declined to have them repaired. Mom and baby were stable to recovery. EBL of 350 mL. Brief History: - General Info. Date of Service: 07/07/20. Mother's Due Date: 07/15/20. - Delivery Note. Labor: Spontaneous, Augmented by Oxytocin. Delivery Outcome: Livebirth. Delivery Method: Spontaneous Vaginal Delivery-Single. Presentation: Left Occiput Anterior (ALHAJI). Nuchal Cord: Present (And tight around the neck and unable to be reduced prior to delivery). Anesthesia Type: Epidural. Amniotic Fluid Description: Clear. Episiotomy Type: None. Laceration: Labial (Bilateral labia minora lacerations that were hemostatic and patient declined to have them repaired). Placenta: Intact, Spontaneous. Cord: 3 Vessels. Estimated Blood Loss: 350. Resuscitation Needed: No. : Bulb Syringe, Cathether, Stimulated, Warmed, Rupert Used. Provider: Guido Garza. Score 1 min: 8. Score 5 min: 9. Second Stage Interventions: Reports: Pushing Effectively, Pushing, Stirrups/Leg Supports. Delivery Comments (Free Text/Narrative):: Stage I: Johnathon Jeffrey was admitted for spontaneous rupture membranes with return of clear fluid. On admission her cervix was dilated to 1 to 2 cm. She was GBS negative. She was started on Pitocin for augmentation of labor given her irregular contraction pattern that she had on arrival. She was given an epidural for anesthesia. She progressed to complete and pushing. While she was pushing she did have some heart rate decelerations down into the 50s to 60s with recovery and moderate variability afterwards. After approximately 20 minutes of pushing with these decelerations they recovered and did not occur significantly afterwards. Stage II: On 07/07/2020 she had a normal vaginal delivery of a live female at 10:45. Apgars of 8 & 9. Infant's weight and length were not available at time of note. There was a single nuchal cord that was tight around the neck and unable to be reduced. The was delivered through the nuchal cord.. Infant was delivered in ALHAJI position. The cord was doubly clamped and cut by father the infant. Infant was placed on mother's abdomen. Stage III: She had a spontaneous delivery of an intact placenta in [place] presentation. Three vessel cord. She was given pitocin and fundal massage. She had bilateral labia minora lacerations that were hemostatic and she declined to have them repaired. Mom and baby were stable to recovery. EBL of 350 mL. Diagnosis: Stroke: No - Discharge Data Discharge Date: 07/09/20 Discharge Disposition: Home, Self-Care 01 Condition: Good - Referral to Home Health Primary Care Physician: Carmen Tee MD - Discharge Diagnosis/Problem(s) (1) 38 weeks gestation of SNOMED Code(s): 29491997 ICD Code: Z3A.38 - 38 WEEKS GESTATION OF Status: Acute Current Visit: Yes (2) Bipolar disease, chronic SNOMED Code(s): 51857463 ICD Code: F31.9 - BIPOLAR DISORDER, UNSPECIFIED Status: Acute Current Visit: Yes (3) Obesity SNOMED Code(s): 561542751, 693977083 ICD Code: E66.9 - OBESITY, UNSPECIFIED Status: Acute Current Visit: Yes (4) Acid reflux SNOMED Code(s): 728675530 ICD Code: K21.9 - GASTRO-ESOPHAGEAL REFLUX DISEASE WITHOUT ESOPHAGITIS Status: Acute Current Visit: No Qualifiers: Esophagitis presence: with esophagitis Qualified Code(s): K21.0 - Gastro- esophageal reflux disease with esophagitis (5) Anxiety SNOMED Code(s): 69033584 ICD Code: F41.9 - ANXIETY DISORDER, UNSPECIFIED Status: Acute Current Visit: No (6) Chronic pelvic pain in female SNOMED Code(s): 325175889 ICD Code: R10.2 - PELVIC AND PERINEAL PAIN; G89.29 - OTHER CHRONIC PAIN Status: Acute Current Visit: No (7) Vaginal delivery SNOMED Code(s): 299935622 ICD Code: O80 - ENCOUNTER FOR FULL-TERM UNCOMPLICATED DELIVERY Status: Acute Current Visit: Yes (8) Obstetric labial laceration, delivered, current hospitalization SNOMED Code(s): 736086374, 307361195, 864165653 ICD Code: O70.0 - FIRST DEGREE PERINEAL LACERATION DURING DELIVERY Status: Acute Current Visit: Yes - Patient Summary/Data Complications: None Consults: None Hospital Course: Johnathon Jeffrey was admitted for spontaneous rupture membranes with clear fluid. On admission her cervix was dilated to 1-2 cm. She was GBS negative. She was given pitocin for augmentation. She was given an epidural for anesthesia. She progressed to complete and began pushing. On 07/07/2020 she had a normal vaginal delivery of a live female at 10:45. Apgars of 8 and 9. Weight of 3160 g (6 pounds 15.5 ounces). Her course was uneventful. Her pain was well controlled and she had minimal lochia. She was ambulating, tolerating a regular diet and voiding normally. She was breast-feeding with pumping breastmilk with minimal difficulty. She was using occasional formula feeding when she was having increased amounts of breast pain. She was afebrile and her hematocrit was 32.9 on admission.her EPDS while on unit was 15/30 and she is currently on the Motrin for treatment of her bipolar disorder, ASD, anxiety and depression. She did not have any thoughts of harm to herself or the . Recommendation is for her to continue with this medication and monitor her symptoms. She will have early follow-up with Dr. Tee for continued monitoring of her depression and bipolar disorder. She desired to be discharged home on the morning of PPD #2. Her blood type is O+. - Patient Instructions Diet: Regular Diet as Tolerated Activity: Apply Ice, As Tolerated Activity, Other: Nothing in the vagina for 6 weeks Driving: May Drive Today Showering/Bathing: May Shower Notify Provider of: Fever, Increased Pain, Swelling and Redness, Drainage, Nausea and/or Vomiting Other/Special Instructions: Please contact your physician's office if you have heavy vaginal bleeding enough to soak a pad in less than an hour for several hours. Monitor for any signs of an infection in the breasts with severe pain or redness of the breast. - Discharge Plan *PRESCRIPTION DRUG MONITORING PROGRAM REVIEWED*: Not Applicable *COPY OF PRESCRIPTION DRUG MONITORING REPORT IN PATIENT SHARAD: Not Applicable Home Medications: Home Meds Albuterol [Ventolin HFA] 2 puff INH Q6HR PRN 03/28/20 [History] Cyclobenzaprine [Flexeril] 5 - 10 mg PO Q6HR PRN 03/28/20 [History] Pnv No.95/Ferrous Fum/Folic AC [ Vitamin Tablet] 1 each PO DAILY 03/28/20 [History] lamoTRIgine [Lamictal] 75 mg PO DAILY 03/28/20 [History] Acetaminophen [Tylenol] 650 mg PO Q6H PRN tablet 07/09/20 [Rx] Benzocaine/Menthol [Dermoplast Pain Relief [place]] 1 spray TOP ASDIRECTED PRN canister 07/09/20 [Rx] Docusate Sodium [Colace] 100 mg PO BID PRN cap 07/09/20 [Rx] Hydrocortisone Acetate [Anucort-HC] 25 mg RECTAL BID PRN supp 07/09/20 [Rx] Ibuprofen [Motrin] 600 mg PO Q6H PRN tablet 07/09/20 [Rx] tyler Espinal [Tucks] 1 pad TOP ASDIRECTED PRN pad 07/09/20 [Rx] Patient Handouts: Care of a Perineal Tear, Care After Vaginal Delivery Referrals: Carmen Tee MD [Primary Care Provider] - (Follow-up in 2 to 3 weeks for routine visit with monitoring of EPDS score.) - Discharge Summary/Plan Comment DC Time >30 min.: No - Patient Data Vitals - Most Recent: Last Vital Signs Temp 36.9 C 07/09/20 03:00 Pulse 87 07/09/20 03:00 Resp 16 07/09/20 03:00 BP 130/78 07/09/20 03:00 Pulse Ox 98 07/09/20 03:00 Weight - Most Recent: 87.543 kg I&O - Last 24 hours: Intake & Output 07/08/20 07/09/20 07/09/20 22:59 06:59 14:59 Intake Total 240 Balance 240 Med Orders - Current: Current Medications Acetaminophen (Tylenol) 650 mg PO Q6H PRN PRN Reason: mild pain or fever Benzocaine/Menthol (Dermoplast Pain Relief [place]) 0 gm TOP ASDIRECTED PRN PRN Reason: Perineal Comfort Measure Last Admin: 07/07/20 13:48 Dose: 1 spray Documented by: Docusate Sodium (Colace) 100 mg PO BID PRN PRN Reason: Constipation Hydrocortisone Acetate (Anucort-Hc) 25 mg RECTAL BID PRN PRN Reason: Hemorrhoid pain Oxytocin/Lactated Ringer's (Pitocin In Lr 10 Units/1,000 Ml) 10 unit in 1,000 mls @ 100 mls/hr IV TITRATE RADHA; Protocol Ibuprofen (Motrin) 600 mg PO Q6H PRN PRN Reason: Mild pain or fever Last Admin: 07/07/20 17:14 Dose: 600 mg Documented by: Lamotrigine (Lamotrigine) 75 mg PO DAILY RADHA Last Admin: 07/09/20 08:59 Dose: 75 mg Documented by: Magnesium Hydroxide (Milk Of Magnesia) 30 ml PO BEDTIME PRN PRN Reason: Constipation Prenat Multivit/[place]/Iron/Folic Ac ( Plus Iron) 1 each PO DAILY RADHA Last Admin: 07/09/20 08:59 Dose: 1 each Documented by: Tyler Espinal (Nate) 1 pad TOP ASDIRECTED PRN PRN Reason: Perineal Comfort Measure Last Admin: 07/07/20 13:47 Dose: 1 pad Documented by: Discontinued Medications Acetaminophen (Tylenol) 650 mg PO Q4H PRN PRN Reason: Pain (Mild 1-3) and fever Bupivacaine HCl (Sensorcaine-Mpf 0.25%) 10 ml .ROUTE .[facility] Stop: 07/07/20 00:01 Calcium Carbonate/Glycine (Tums) 1,000 mg PO Q2H PRN PRN Reason: Indigestion Diphenhydramine HCl (Benadryl) 25 mg IVPUSH Q6H PRN PRN Reason: pruritis Ephedrine Sulfate (Ephedrine Sulfate) 5 mg IVPUSH ASDIRECTED PRN PRN Reason: Hypotension Fentanyl (Sublimaze) 100 mcg EPIDUR Q3H PRN PRN Reason: Pain Last Admin: 07/07/20 01:56 Dose: 100 mcg Documented by: Fentanyl/Bupivacaine HCl (Fentanyl/Bupivacaine/Ns 2 Mcg-0.125% 100 Ml) 100 ml EPIDUR ASDIRECTED PRN PRN Reason: Pain Last Admin: 07/07/20 02:01 Dose: 100 ml Documented by: Oxytocin/Lactated Ringer's (Pitocin In Lr 10 Units/1,000 Ml) 10 unit in 1,000 mls @ 12 mls/hr IV TITRATE RADHA; Protocol Last Titration: 07/07/20 08:00 Dose: 2 munits/min, 12 mls/hr Documented by: Oxytocin/Lactated Ringer's (Pitocin In Lr 10 Units/1,000 Ml) 10 unit in 1,000 mls @ 500 mls/hr IV [facility] Lactated Ringer's (Ringers, Lactated) 1,000 mls @ 100 mls/hr IV ASDIRECTED RADHA Last Admin: 07/07/20 07:11 Dose: 500 mls/hr Documented by: Lidocaine HCl (Xylocaine 1%) 20 ml INJECT ONETIME ONE Stop: 07/06/20 22:14 Nalbuphine HCl (Nubain) 10 mg IVPUSH Q2H PRN PRN Reason: Pain Ondansetron HCl (Zofran) 4 mg IVPUSH Q4H PRN PRN Reason: Nausea/Vomiting Last Admin: 07/07/20 00:18 Dose: 4 mg Documented by: Sodium Chloride (Saline Flush) 10 ml FLUSH ASDIRECTED PRN PRN Reason: Keep Vein Open
== END 2020-07-09 11:15 | disposition home or self-care (01) | DRG 807 ==
LOC: JD.OBCHECK 22:02 → JD.OB 22:25 → OBSVTOIN 07-07 10:45 → JD.OB 07-07 10:46
PROVIDERS: ADMIT Obstetrics & Gynecology; ATTEND Obstetrics & Gynecology
PROC: 10E0XZZ Delivery of Products of Conception, External Approach (ICD-10-PCS; principal; 2020-07-07)
PROC: 3E0R3BZ Introduction of Anesthetic Agent into Spinal Canal, Percutaneous Approach (ICD-10-PCS; 2020-07-07)
DX: O69.1XX0 Labor and delivery complicated by cord around neck, with compression, not applicable or unspecified (principal); Z37.0 Single live birth; O70.0 First degree perineal laceration during delivery; Z3A.38 38 weeks gestation of pregnancy; O99.214 Obesity complicating childbirth; E66.9 Obesity, unspecified; O99.344 Other mental disorders complicating childbirth; Z20.828 Contact with and (suspected) exposure to other viral communicable diseases; F31.9 Bipolar disorder, unspecified; K21.9 Gastro-esophageal reflux disease without esophagitis; F41.9 Anxiety disorder, unspecified; O99.52 Diseases of the respiratory system complicating childbirth; J45.909 Unspecified asthma, uncomplicated
CPT/HCPCS: 36415; 51702; 59025; 59409; 80306; 81001; 85025; 86592; 86850; 86900; 86901; A9270-GY; J2405; J2590; J3010; J3490; J7120; U0002

== ENCOUNTER 2021-02-17 20:52 | Emergency (ER) | payer MEDICAID ==
[2021-02-17] MEDS ORDERED: Ondansetron 4 MG Tab.DIS PO ONE (21:14)
[2021-02-17] MEDS ORDERED: Ketorolac 30 MG/ML SDV IM ONE (21:14)
--- NOTE | 2021-02-17 21:18 | EDM.PDOC ---
ED HPI GENERAL MEDICAL PROBLEM - General Chief Complaint: Lower Extremity Injury/Pain Stated Complaint: hip and side pain Time Seen by Provider: 02/17/21 21:05 Source of Information: Reports: Patient, RN Notes Reviewed History Limitations: Reports: No Limitations - History of Present Illness INITIAL COMMENTS - FREE TEXT/NARRATIVE: Patient is a 25-year-old female who presents to the ED for evaluation of her hip and side pain. Patient notes for the last 3 days, she has had low back pain, that seems to radiate down the back of both of her thighs. She does state that it is getting progressively worse, and seems to be radiating to her groin folds and is noticing some cramping into her pelvis. Patient notes she is had a pain like this, present a few years ago, she was evaluated for endometriosis at that time, and that was negative. She states that walking really hurts. She has had no other belly surgeries, and she does note that it does hurt to pee. She denies any chance of , states that she just got off of her menses and took a negative test. She said no fevers or chills, no cough or shortness of breath, she has had some nausea but no vomiting or diarrhea. Patient's primary care provider is Saadia Hernandez. She did not take any pain medications for the pain. Bilateral Hip Pain Score (Numeric/FACES): 7 - Related Data Allergies Allergy/AdvReac Type Severity Reaction Status Date / Time codeine Allergy Other Verified 02/17/21 21:07 diazepam [From Valium] Allergy Other Verified 02/17/21 21:07 ethinyl estradiol Allergy Rash Verified 02/17/21 21:07 [From Xulane] norelgestromin [From Xulane] Allergy Rash Verified 02/17/21 21:07 Penicillins Allergy Other Verified 02/17/21 21:07 Home Meds: Home Meds lamoTRIgine [Lamictal] 75 mg PO DAILY 03/28/20 [History] Acetaminophen [Tylenol] 650 mg PO Q6H PRN tablet 07/09/20 [Rx] Ibuprofen [Motrin] 600 mg PO Q6H PRN tablet 07/09/20 [Rx] tatyana Mesha [Tucks] 1 pad TOP ASDIRECTED PRN pad 07/09/20 [Rx] Cefdinir [Omnicef] 300 mg PO BID 5 Days #10 cap 02/17/21 [Rx] hydrOXYzine HCL [hydrOXYzine] 1 tab PO TID PRN 02/17/21 [History] Past Medical History - Past Health History Medical/Surgical History: Denies Medical/Surgical History HEENT History: Reports: Impaired Vision Other HEENT History: wears eyeglasses. 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 INTERNAL AUDITOR History: Reports: , Other (See Below) Other CHIEF INTERNAL AUDITOR History: chronic pelvic pain Musculoskeletal History: Reports: None Neurological History: Reports: Migraines Other Neuro History: hx mild concussion age 13yo Psychiatric History: Reports: Anxiety, Bipolar, Depression, Eating Disorders Endocrine/Metabolic History: Reports: None Hematologic History: Reports: None Immunologic History: Reports: None Oncologic (Cancer) History: Reports: None Dermatologic History: Reports: None - Infectious Disease History Infectious Disease History: Reports: Chicken Pox - Past Surgical History HEENT Surgical History: Reports: Oral Surgery GI Surgical History: Reports: EGD, Other (See Below) Other GI Surgeries/Procedures: Diagnostic laparoscopy Female Surgical History: Reports: None Social & Family History - Family History Family Medical History: No Pertinent Family History - Tobacco Use Tobacco Use Status *Q: Unknown Ever Used Tobacco - Caffeine Use Caffeine Use: Reports: None - Recreational Drug Use Recreational Drug Use: No - Living Situation & Occupation Living situation: Reports: Single, with Family Occupation: Employed Review of Systems - Review of Systems Review Of Systems: Comprehensive ROS is negative, except as noted in HPI. ED EXAM, GENERAL - Physical Exam Exam: See Below Exam Limited By: No Limitations General Appearance: Alert, WD/WN, No Apparent Distress Respiratory/Chest: No Respiratory Distress, Lungs Clear, Normal Breath Sounds, No Accessory Muscle Use, Chest Non-Tender Cardiovascular: Normal Peripheral Pulses, Regular Rate, Rhythm, No Edema Peripheral Pulses: 2+: Radial (L), Radial (R) GI/Abdominal: Normal Bowel Sounds, Soft, No Distention, No Mass, Tender (suprapubic mainly) Extremities: Normal Inspection, Normal Capillary Refill Neurological: Alert, Oriented, No Motor/Sensory Deficits Psychiatric: Normal Affect, Normal Mood Skin Exam: Warm, Dry, Intact, Normal Color, No Rash Course - Vital Signs Last Recorded V/S: Last Vital Signs Temp 97.1 F 02/17/21 21:05 Pulse 95 02/17/21 21:05 Resp 20 02/17/21 21:05 BP 122/82 02/17/21 21:05 Pulse Ox 97 02/17/21 21:05 - Orders/Labs/Meds Orders: Active Orders 24 hr Category Date Time Status CULTURE URINE [RM] Routine Lab 02/17/21 21:54 Ordered Labs: Laboratory Tests 02/17/21 02/17/21 Range/Units 21:22 21:26 Urine Color Yellow (Yellow) Urine Appearance Clear (Clear) Urine pH 7.0 (5.0-8.0) Ur Specific [place] 1.025 (1.005-1.030) Urine Protein 1+ H (Negative) Urine Glucose (UA) Negative (Negative) Urine Ketones Negative (Negative) Urine Occult Blood Trace-intact H (Negative) Urine Nitrite Negative (Negative) Urine Bilirubin Negative (Negative) Urine Urobilinogen 0.2 (0.2-1.0) Ur Leukocyte Esterase 1+ H (Negative) Urine RBC 0-5 (0-5) /hpf Urine WBC 5-10 H (0-5) /hpf Ur Squamous Epith Cells 0-5 (0-5) /hpf Amorphous Sediment Many H (NOT SEEN) /hpf Urine Bacteria Few (FEW) /hpf Urine Mucus Few (FEW) /hpf Urine HCG, Qual Negative (NEGATIVE) Meds: Medications Discontinued Medications Generic Name Dose Route Start Last Admin Trade Name Freq PRN Reason Stop Dose Admin Cefdinir 300 mg 02/17/21 21:50 Cefdinir 300 Mg Cap PO 02/17/21 21:51 ONETIME ONE Ketorolac Tromethamine 30 mg 02/17/21 21:14 02/17/21 21:34 Ketorolac 30 Mg/Ml Sdv IM 02/17/21 21:15 30 mg ONETIME ONE Administration Ondansetron HCl 4 mg 02/17/21 21:14 02/17/21 21:34 Ondansetron 4 Mg Tab.Dis PO 02/17/21 21:15 4 mg ONETIME ONE Administration - Re-Assessments/Exams Free Text/Narrative Re-Assessment/Exam: 02/17/21 21:17 Patient presents to the ER for her hip/leg pain, and dysuria. We will go ahead and get a urinalysis for today's purposes, she will get a IM injection of Toradol, and some Zofran for ongoing nausea management. 02/17/21 21:52 Patient's urinalysis has come back, and she has 1+ leukocyte Estrace within her urine, and 5-10 white blood cells per high-power field, which is consistent with acute UTI, along with her dysuria, this could be the source of her discomfort, we will go ahead and treat her with Omnicef if her symptoms do not improve and roughly 48 to 72 hours, I will have her seek care for reevaluation. Departure - Departure Time of Disposition: 21:52 Disposition: Home, Self-Care 01 Condition: Good Clinical Impression: UTI (urinary tract infection) Qualifiers: Urinary tract infection type: acute cystitis Hematuria presence: without hematuria Qualified Code(s): N30.00 - Acute cystitis without hematuria Low back pain Qualifiers: Chronicity: acute Back pain laterality: bilateral Sciatica presence: with sciatica Sciatica laterality: bilateral sciatica Qualified Code(s): M54.42 - Lumbago with sciatica, left side - Discharge Information *PRESCRIPTION DRUG MONITORING PROGRAM REVIEWED*: No *COPY OF PRESCRIPTION DRUG MONITORING REPORT IN PATIENT SHARAD: No Prescriptions: Cefdinir [Omnicef] 300 mg PO BID 5 Days #10 cap Instructions: Urinary Tract Infection, Adult, [id number] Referrals: Saadia Hernandez FLAT GRINDER OPERATOR [Primary Care Provider] - Forms: ED Department Discharge Additional Instructions: You have been evaluated in the ED for your urinary symptoms. Your urinalysis was consistent with an acute urinary tract infection. Your urine was sent for culture, and you will be notified if you should need a change in your antibiotic. This may take up to 48 hours to result. You may take AZO for urinary pain relief. This is available over the counter, and can be attained at any retail store like [employer] or any pharmacy. Please be aware that this medication will make your urine turn orange. You have been given a prescription for Omnicef (cefdinir), 300 mg 1 tablet 2 times a day for 5 days. Please note that the antibiotics can take up to 48 hours to start working. This medication was electronically sent to the [place] [facility] located in the [employer] [facility]. Please increase your oral fluid intake and try to stay adequately hydrated. You may take 600 mg ibuprofen every 6 hours as needed for further pain or discomfort. Please return to the ED if your symptoms change or worsen. Sepsis Event Note (ED) - Evaluation Sepsis Screening Result: No Definite Risk - Focused Exam Vital Signs: Vital Signs Temp Pulse Resp BP Pulse Ox 02/17/21 21:05 97.1 F 95 20 122/82 97 - My Orders Last 24 Hours: My Active Orders 02/17/21 21:54 CULTURE URINE [RM] Routine - Assessment/Plan Last 24 Hours: My Active Orders 02/17/21 21:54 CULTURE URINE [RM] Routine
[2021-02-17] MEDS ORDERED: Cefdinir 300 MG Cap PO ONE (21:50)
== END 2021-02-17 22:05 | disposition home or self-care (01) ==
LOC: JD.ED 20:52
DX: N30.00 Acute cystitis without hematuria (principal); M54.42 Lumbago with sciatica, left side; M54.41 Lumbago with sciatica, right side; J45.909 Unspecified asthma, uncomplicated; Z88.5 Allergy status to narcotic agent; Z88.8 Allergy status to other drugs, medicaments and biological substances; Z88.0 Allergy status to penicillin; Z79.899 Other long term (current) drug therapy
CPT/HCPCS: 81001; 81025; 87086; 96372; 99283; A9270; J1885

== ENCOUNTER 2021-03-15 19:22 | Emergency (ER) | payer MEDICAID ==
[2021-03-15 20:25] LABS: STREP A BY PCR NOT DETECTED (NOT DETECT)
[2021-03-15 20:47] LABS: CORONAVIRUS COVID-19 NAA NEGATIVE (NEGATIVE)
--- NOTE | 2021-03-15 20:47 | EDM.PDOC ---
ED HPI GENERAL MEDICAL PROBLEM - General Chief Complaint: ENT Problem Stated Complaint: extreme throat pain Time Seen by Provider: 03/15/21 19:29 Source of Information: Reports: Patient History Limitations: Reports: No Limitations - History of Present Illness INITIAL COMMENTS - FREE TEXT/NARRATIVE: 25-year-old female presents emergency department today with complaints of a sore throat that started 2 days ago. Patient states she does have a history of frequent bouts of tonsillitis. She states that yesterday she woke and developed sore throat on the right side. She states as the day progressed it began to get more sore and swollen as she felt her lymph nodes becoming more tender. She states that by last evening the left side of her throat was also sore and she noted pus on her tonsils. She does not note any fever however she has had chills. She states she has vomited twice today. She denies any diarrhea, headache, nausea cough or shortness of breath associated with this. Throat Pain Score (Numeric/FACES): 7 - Related Data Allergies Allergy/AdvReac Type Severity Reaction Status Date / Time codeine Allergy Other Verified 03/15/21 19:33 diazepam [From Valium] Allergy Other Verified 03/15/21 19:33 ethinyl estradiol Allergy Rash Verified 03/15/21 19:33 [From Xulane] norelgestromin [From Xulane] Allergy Rash Verified 03/15/21 19:33 Penicillins Allergy Other Verified 03/15/21 19:33 Home Meds: Home Meds lamoTRIgine [Lamictal] 150 mg PO DAILY 03/28/20 [History] Acetaminophen [Tylenol] 650 mg PO Q6H PRN tablet 07/09/20 [Rx] hydrOXYzine HCL [hydrOXYzine] 1 tab PO TID PRN 02/17/21 [History] Sertraline [Zoloft] 0 mg PO DAILY 03/15/21 [History] cephALEXin [Keflex] 500 mg PO BID #19 cap 03/15/21 [Rx] Past Medical History - Past Health History Medical/Surgical History: Denies Medical/Surgical History HEENT History: Reports: Impaired Vision Other HEENT History: wears eyeglasses. 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: , Other (See Below) Other GARDENING INSTRUCTOR History: chronic pelvic pain Musculoskeletal History: Reports: None Neurological History: Reports: Concussion, Migraines Other Neuro History: hx mild concussion age 13yo Psychiatric History: Reports: Anxiety, Bipolar, Depression, Eating Disorders Endocrine/Metabolic History: Reports: Obesity/BMI 30+ Hematologic History: Reports: None Immunologic History: Reports: None Oncologic (Cancer) History: Reports: None Dermatologic History: Reports: None - Infectious Disease History Infectious Disease History: Reports: Chicken Pox - Past Surgical History HEENT Surgical History: Reports: Oral Surgery Cardiovascular Surgical History: Reports: None GI Surgical History: Reports: EGD, Other (See Below) Other GI Surgeries/Procedures: Diagnostic laparoscopy Female Surgical History: Reports: None Social & Family History - Family History Family Medical History: No Pertinent Family History - Tobacco Use Tobacco Use Status *Q: Former Tobacco User Used Tobacco, but Quit: Yes Month/Year Tobacco Last Used: 11/2018 - Caffeine Use Caffeine Use: Reports: Energy Drinks - Recreational Drug Use Recreational Drug Use: Yes Drug Use in Last 12 Months: Yes Recreational Drug Type: Reports: Marijuana/Hashish - Living Situation & Occupation Living situation: Reports: Single, with Family Occupation: Employed ED ROS ENT - Review of Systems Review Of Systems: Comprehensive ROS is negative, except as noted in HPI. ED EXAM, ENT - Physical Exam Exam: See Below Exam Limited By: No Limitations General Appearance: Alert, WD/WN, No Apparent Distress Ears: Normal External Exam, Hearing Grossly Normal Nose: Normal Inspection Mouth/Throat: Normal Gums, Normal Lips, Normal Teeth, Muffled Voice, Tonsillar Erythema, Tonsillar Exudates, Tonsillar Swelling Head: Atraumatic Neck: Normal Inspection, Supple, Lymphadenopathy (L), Lymphadenopathy (R) Respiratory/Chest: No Respiratory Distress, Lungs Clear, Normal Breath Sounds, No Accessory Muscle Use, Chest Non-Tender Cardiovascular: Normal Peripheral Pulses, Regular Rate, Rhythm, No Edema, No Murmur GI/Abdominal: Normal Bowel Sounds, Soft, Non-Tender, No Distention (Female) Exam: Deferred Rectal (Female) Exam: Deferred Back: Normal Inspection, Full Range of Motion Extremities: Normal Inspection, Normal Range of Motion Neurological: Alert, Oriented, Normal Cognition Psychiatric: Normal Affect, Normal Mood Skin: Warm, Dry, Intact, Normal Color, No Rash Lymphatic: No Adenopathy Course - Vital Signs Text/Narrative:: 25-year-old female with a 2-day history of sore throat which has progressively gotten worse and chills. States she also vomited twice today. Denies abdominal pain or diarrhea. Denies headache, cough or shortness of breath. I have ordered swab for strep, Covid, influenza A and B. Last Recorded V/S: Last Vital Signs Temp 98.2 F 03/15/21 19:30 Pulse 118 H 03/15/21 19:30 Resp 12 03/15/21 19:30 BP 116/74 03/15/21 19:30 Pulse Ox 93 L 03/15/21 19:30 - Orders/Labs/Meds Orders: Active Orders 24 hr Category Date Time Status COVID-19/FLU A+B [[facility]] Stat Lab 03/15/21 19:45 Results STREP A BY PCR [[facility]] Stat Lab 03/15/21 19:45 Results Labs: Laboratory Tests 03/15/21 Range/Units 19:45 Group A Strep (PCR) Not detected (NOT DETECT) - Re-Assessments/Exams Free Text/Narrative Re-Assessment/Exam: 03/15/21 20:49 Patient strep a is negative. Covid swab, influenza A and influenza B are all negative however patient does score a 4 on the modified Centor criteria so I will treat her for pharyngitis. She is allergic to penicillins so I will start her on Omnicef 300 mg twice daily for 10 days. Departure - Departure Time of Disposition: 20:53 Disposition: Home, Self-Care 01 Condition: Good Clinical Impression: Tonsillitis - Discharge Information Prescriptions: cephALEXin [Keflex] 500 mg PO BID #19 cap Referrals: Saadia Hernandez, [employer] [Primary Care Provider] - Additional Instructions: You were seen in the emergency department today with complaints of a sore throat that started 2 days ago. Swabs were collected of your throat as well as for Covid and influenza a and B. These came back all negative however I do still suspect that you have tonsillitis/pharyngitis. You were given your first dose of antibiotic in the emergency department. I have sent a prescription for Keflex 500 mg. You will need to take this medication twice daily until gone. Be sure to take the medication in its entirety to be sure that the infection is completely treated. Should your condition worsen or change, do not hesitate returning to the emergency department. Sepsis Event Note (ED) - Evaluation Sepsis Screening Result: No Definite Risk - Focused Exam Vital Signs: Vital Signs Temp Pulse Resp BP Pulse Ox 03/15/21 19:30 98.2 F 118 H 12 116/74 93 L - My Orders Last 24 Hours: My Active Orders 03/15/21 19:45 COVID-19/FLU A+B [[facility]] Stat STREP A BY PCR [[facility]] Stat - Assessment/Plan Last 24 Hours: My Active Orders 03/15/21 19:45 COVID-19/FLU A+B [[facility]] Stat STREP A BY PCR [[facility]] Stat
[2021-03-15] MEDS ORDERED: Cephalexin 500 MG Cap PO ONE (20:52)
== END 2021-03-15 21:05 | disposition home or self-care (01) ==
LOC: JD.ED 19:22
DX: J03.90 Acute tonsillitis, unspecified (principal); J45.909 Unspecified asthma, uncomplicated; E66.9 Obesity, unspecified; Z68.32 Body mass index [BMI] 32.0-32.9, adult; Z88.5 Allergy status to narcotic agent; Z88.8 Allergy status to other drugs, medicaments and biological substances; Z88.0 Allergy status to penicillin; Z87.891 Personal history of nicotine dependence
CPT/HCPCS: 0240U; 87651; 99283; A9270

== ENCOUNTER 2022-01-17 08:46 | Emergency (ER) | payer BC, MEDICAID ==
[2022-01-17] MEDS ORDERED: Ondansetron 4 MG/2 ML SDV IVPUSH ONE (09:24)
[2022-01-17] MEDS ORDERED: Sodium Chloride 0.9% 1,000 ML IV ONE (09:24)
== END 2022-01-17 11:46 | disposition home or self-care (01) ==
LOC: JD.ED 08:46
DX: O21.9 Vomiting of pregnancy, unspecified (principal); O99.281 Endocrine, nutritional and metabolic diseases complicating pregnancy, first trimester; E86.0 Dehydration; Z88.5 Allergy status to narcotic agent; Z88.2 Allergy status to sulfonamides; Z88.8 Allergy status to other drugs, medicaments and biological substances; Z3A.01 Less than 8 weeks gestation of pregnancy
CPT/HCPCS: 36415; 80053; 81001; 85025; 96374; 99284; J2405; J7030

== ENCOUNTER 2022-02-03 08:36 | Emergency (ER) | payer BC ==
[2022-02-03] MEDS ORDERED: Ondansetron 4 MG/2 ML SDV IVPUSH ONE (09:01)
[2022-02-03] MEDS ORDERED: Sodium Chloride 0.9% 1,000 ML IV STA (09:01)
== END 2022-02-03 12:15 | disposition home or self-care (01) ==
LOC: JD.ED 08:36
DX: O21.9 Vomiting of pregnancy, unspecified (principal); Z3A.09 9 weeks gestation of pregnancy; Z88.5 Allergy status to narcotic agent; Z88.0 Allergy status to penicillin; Z88.8 Allergy status to other drugs, medicaments and biological substances
CPT/HCPCS: 36415; 80053; 81001; 85025; 96374; 99283; J2405; J7030

== ENCOUNTER 2022-02-12 08:54 | Emergency (ER) | payer BC ==
[2022-02-12] MEDS ORDERED: Ondansetron 4 MG/2 ML SDV IVPUSH ONE (09:28)
[2022-02-12] MEDS ORDERED: Sodium Chloride 0.9% 10 ML Syringe FLUSH PRN (09:28)
[2022-02-12] MEDS ORDERED: Sodium Chloride 0.9% 1,000 ML IV SCH (09:30)
== END 2022-02-12 11:14 | disposition home or self-care (01) ==
LOC: JD.ED 08:54
DX: O21.9 Vomiting of pregnancy, unspecified (principal); O99.891 Other specified diseases and conditions complicating pregnancy; R19.7 Diarrhea, unspecified; Z3A.10 10 weeks gestation of pregnancy; Z88.5 Allergy status to narcotic agent; Z88.0 Allergy status to penicillin; Z88.8 Allergy status to other drugs, medicaments and biological substances; Z20.822 Contact with and (suspected) exposure to COVID-19
CPT/HCPCS: 87635; 96374; 99283; J2405; J7030; 99284; J3490; U0002

== ENCOUNTER 2022-05-17 02:51 | Inpatient (IN) | payer BC ==
[2022-05-17] MEDS ORDERED: Lactated Ringers 600 ML IV ONE (04:15)
[2022-05-17] MEDS ORDERED: ceFAZolin 2 GM in Sodium Chloride 0.9% 50 ML IV ONE (04:41)
[2022-05-17] MEDS ORDERED: Acetaminophen 325 MG Tab PO PRN (04:44)
[2022-05-17] MEDS: traMADol 50 MG Tab PO PRN ×2 (05:03→21:42)
[2022-05-17] MEDS ORDERED: Gentamicin 40 MG/ML 2 ML Vial IV SCH (06:20)
[2022-05-17] MEDS ORDERED: Gentamicin 420 MG in Sodium Chloride 0.9% 100 ML IV ONE ×2 (08:00→08:30)
[2022-05-17] MEDS: Lactated Ringers 1,000 ML IV SCH ×3 (08:31→23:36)
[2022-05-17] MEDS: Sodium Chloride 0.9% 10 ML Syringe FLUSH SCH (09:10)
[2022-05-17] MEDS: ceFAZolin 1 GM in Sodium Chloride 0.9% 50 ML IV SCH ×3 (12:06→23:33)
[2022-05-18] MEDS: ceFAZolin 1 GM in Sodium Chloride 0.9% 50 ML IV SCH ×2 (05:15→11:30)
[2022-05-18] MEDS: Lactated Ringers 1,000 ML IV SCH (06:20)
[2022-05-18] MEDS ORDERED: Gentamicin 420 MG in Sodium Chloride 0.9% 100 ML IV SCH (08:30)
[2022-05-18] MEDS ORDERED: Ondansetron 4 MG/2 ML SDV IVPUSH PRN (08:30)
[2022-05-18] MEDS: Sodium Chloride 0.9% 10 ML Syringe FLUSH SCH (10:00)
== END 2022-05-18 12:55 | disposition home or self-care (01) | DRG 566 ==
LOC: JD.OB 02:51 → JD.OBCHECK 02:51 → JD.OB 05:37
PROVIDERS: ADMIT Obstetrics & Gynecology; ATTEND Obstetrics & Gynecology
DX: O23.02 Infections of kidney in pregnancy, second trimester (principal); Z3A.24 24 weeks gestation of pregnancy; N12 Tubulo-interstitial nephritis, not specified as acute or chronic; B96.20 Unspecified Escherichia coli [E. coli] as the cause of diseases classified elsewhere; O99.342 Other mental disorders complicating pregnancy, second trimester; O99.512 Diseases of the respiratory system complicating pregnancy, second trimester; J45.909 Unspecified asthma, uncomplicated; O99.212 Obesity complicating pregnancy, second trimester; E66.9 Obesity, unspecified; F41.8 Other specified anxiety disorders; O99.322 Drug use complicating pregnancy, second trimester; F12.90 Cannabis use, unspecified, uncomplicated
CPT/HCPCS: 36415; 80170; 81001; 82565; 85025; 87086; 87088; 87186; A9270-GY; J0690; J1580; J2405; J7120

== ENCOUNTER 2022-09-01 02:01 | Inpatient (IN) | payer BC, MEDICAID ==
[2022-09-01] MEDS ORDERED: Calcium Carbonate 500 MG Tab.Chew PO PRN (02:26)
[2022-09-01] MEDS ORDERED: Ondansetron 4 MG/2 ML SDV IVPUSH PRN (02:26)
[2022-09-01] MEDS ORDERED: Acetaminophen 325 MG Tab PO PRN ×2 (02:26→08:17)
[2022-09-01] MEDS ORDERED: Nalbuphine HCl 10 MG/ 1ML Amp IVPUSH PRN (02:26)
[2022-09-01] MEDS ORDERED: Oxytocin/Lactated Ringers 10 UNIT/1,000 ML BAG IV SCH (02:30)
[2022-09-01] MEDS: Lactated Ringers 1,000 ML IV SCH ×2 (02:37→03:40)
[2022-09-01] MEDS ORDERED: fentaNYL 100 MCG/2 ML SDV EPIDUR PRN (02:47)
[2022-09-01] MEDS ORDERED: Bupivacaine/fentaNYL/NS 100 ML Bag EPIDUR PRN (02:47)
[2022-09-01] MEDS ORDERED: diphenhydrAMINE 50 MG/ML SDV IVPUSH PRN (02:47)
[2022-09-01] MEDS ORDERED: ePHEDrine 50 MG/ML SDV IVPUSH PRN (02:47)
[2022-09-01] MEDS ORDERED: Methylergonovine 0.2 MG/1 ML Amp ONE (04:52)
[2022-09-01] MEDS ORDERED: Misoprostol 200 MCG Tab ONE (06:48)
[2022-09-01] MEDS ORDERED: Hydrocortisone Acetate 25 MG Supp RECTAL PRN (08:17)
[2022-09-01] MEDS ORDERED: Ibuprofen 600 MG Tab PO PRN (08:17)
[2022-09-01] MEDS ORDERED: Benzocaine/Menthol 20%-0.5% Spray 78 GM Cannister TOP PRN (08:17)
[2022-09-01] MEDS ORDERED: Docusate Sodium 100 MG Cap PO PRN (08:17)
[2022-09-01] MEDS ORDERED: Witch Hazel Medicated Pads 40/Jar TOP PRN (08:17)
[2022-09-01] MEDS ORDERED: Magnesium Hydroxide 400 MG/5 ML Susp 30 ML Cup PO PRN (08:17)
[2022-09-01] MEDS ORDERED: Prenatal Multivitamin with Calcium/Folic Acid/Iron Tab PO SCH (09:00)
[2022-09-02] MEDS ORDERED: Ferrous Sulfate 324 MG Tab.EC PO SCH (07:00)
== END 2022-09-02 14:00 | disposition home or self-care (01) | DRG 542 ==
LOC: JD.OBCHECK 02:01 → JD.OB 02:04 → JD.OBCHECK 02:26 → JD.OB 02:27 → OBSVTOIN 06:38 → JD.OB 06:39
PROVIDERS: ADMIT Obstetrics & Gynecology; ATTEND Obstetrics & Gynecology
PROC: 10D07Z6 Extraction of Products of Conception, Vacuum, Via Natural or Artificial Opening (ICD-10-PCS; principal; 2022-09-01)
PROC: 0DQR0ZZ Repair Anal Sphincter, Open Approach (ICD-10-PCS; 2022-09-01)
PROC: 10907ZC Drainage of Amniotic Fluid, Therapeutic from Products of Conception, Via Natural or Artificial Opening (ICD-10-PCS; 2022-09-01)
PROC: 3E0R3BZ Introduction of Anesthetic Agent into Spinal Canal, Percutaneous Approach (ICD-10-PCS; 2022-09-01)
DX: O69.81X0 Labor and delivery complicated by cord around neck, without compression, not applicable or unspecified (principal); Z3A.39 39 weeks gestation of pregnancy; Z37.0 Single live birth; O70.20 Third degree perineal laceration during delivery, unspecified; F32.0 Major depressive disorder, single episode, mild; O99.344 Other mental disorders complicating childbirth; O72.1 Other immediate postpartum hemorrhage
CPT/HCPCS: 36415; 51701; 59025; 59409; 85025; 85610; 85730; 86592; A9270-GY; J2210; J3010; J7120

== ENCOUNTER 2022-11-30 20:34 | Emergency (ER) | payer OTHER, BC ==
[2022-11-30] MEDS ORDERED: Sodium Chloride 0.9% 10 ML Syringe FLUSH PRN (20:56)
[2022-11-30] MEDS ORDERED: Ketorolac 15 MG/ML SDV IVPUSH ONE (20:58)
[2022-11-30] MEDS ORDERED: Sodium Chloride 0.9% 1,000 ML IV ONE (20:59)
[2022-11-30] MEDS ORDERED: Iopamidol 612 MG/ML 100 ML Bottle IVPUSH ONE (22:02)
== END 2022-12-01 04:23 | disposition home or self-care (01) ==
LOC: JD.ED 20:34
DX: S12.690A Other displaced fracture of seventh cervical vertebra, initial encounter for closed fracture (principal); S22.010A Wedge compression fracture of first thoracic vertebra, initial encounter for closed fracture; S16.1XXA Strain of muscle, fascia and tendon at neck level, initial encounter; E66.9 Obesity, unspecified; Z88.5 Allergy status to narcotic agent; Z88.0 Allergy status to penicillin; Z88.8 Allergy status to other drugs, medicaments and biological substances; Z86.16 Personal history of COVID-19; Z68.34 Body mass index [BMI] 34.0-34.9, adult; V89.2XXA Person injured in unspecified motor-vehicle accident, traffic, initial encounter; Y92.410 Unspecified street and highway as the place of occurrence of the external cause
CPT/HCPCS: 36415; 70450; 71045; 71260; 72052; 72125; 74177; 80053; 84703; 85025; 86850; 86900; 86901; 93005; 96361; 96374; 99284; J1885; J3490; J7030